=== PATIENT | female | born 1975 | race African-American/Black ===

== ENCOUNTER 2019-09-27 09:55 | Emergency (ER) | payer MEDICAID ==
[~2019-09-27] VITALS: Ht 165 cm; Wt 115.0 kg
[2019-09-27 10:42] LABS: BASOPHILS % (AUTO) 1 % (0-10); EOSINOPHILS # (AUTO) 0.3 10^3/uL (0.0-0.3); EOSINOPHILS % (AUTO) 3 % (0-10); HEMATOCRIT 44 % (35-52); HEMOGLOBIN 14.4 G/DL (11.5-16.0); LYMPHOCYTES # (AUTO) 3.5 X 10^3 (1.0-4.0); LYMPHOCYTES % (AUTO) 39 % (12-44); MEAN CORPUSCULAR HEMOGLOBIN 29 PG (25-34); MEAN CORPUSCULAR HGB CONC 33 G/DL (32-36); MEAN CORPUSCULAR VOLUME 89 FL (80-99); MEAN PLATELET VOLUME 10.9 FL (7.4-10.4); MONOCYTES # (AUTO) 0.7 X 10^3 (0.0-1.0); MONOCYTES % (AUTO) 8 % (0-12); NEUTROPHILS # (AUTO) 4.3 X 10^3 (1.8-7.8); NEUTROPHILS % (AUTO) 49 % (42-75); PLATELET COUNT 325 10^3/uL (130-400); RED CELL DISTRIBUTION WIDTH 16.6 % (10.0-14.5); WHITE BLOOD COUNT 8.9 10^3/uL (4.3-11.0)
[2019-09-27 10:49] LABS: INR 0.8 (0.8-1.4); PROTHROMBIN TIME PATIENT 11.7 SEC (12.2-14.7)
--- NOTE | 2019-09-27 10:53 | Diagnostic Imaging Report ---
INDICATION: Chest pain. Portable chest 10:45 AM FINDINGS: Patient has loop recorder projecting over the left lower chest. There are postoperative changes from a median sternotomy. Heart size and pulmonary vascularity are normal. Lungs are clear. There are no effusions or pneumothoraces. IMPRESSION: Postsurgical changes in the chest. No acute abnormality seen. Dictated by: Dictated on workstation # [id number]
[2019-09-27 10:54] LABS: ALANINE AMINOTRANSFERASE 28 U/L (0-55); ALBUMIN 4.2 GM/DL (3.2-4.5); ALKALINE PHOSPHATASE 96 U/L (40-136); BILIRUBIN,TOTAL 0.1 MG/DL (0.1-1.0); BUN/CREATININE RATIO 16; CALCIUM 8.9 MG/DL (8.5-10.1); CARBON DIOXIDE 22 MMOL/L (21-32); CHLORIDE 104 MMOL/L (98-107); CREATININE SERUM 0.75 MG/DL (0.60-1.30); GFR ESTIMATED > 60; GLUCOSE 96 MG/DL (70-105); POTASSIUM 5.6 MMOL/L (3.6-5.0); SODIUM 137 MMOL/L (135-145); TOTAL PROTEIN 7.6 GM/DL (6.4-8.2)
[2019-09-27 11:12] LABS: BILIRUBIN,URINE NEGATIVE (NEGATIVE); CLARITY,URINE CLEAR; COLOR,URINE YELLOW; GLUCOSE, URINE (UA) NEGATIVE (NEGATIVE); KETONES,URINE NEGATIVE (NEGATIVE); LEUKOCYTE ESTERASE ,URINE NEGATIVE (NEGATIVE); NITRITE,URINE NEGATIVE (NEGATIVE); PH,URINE 6.5 (5-9); PROTEIN,URINE NEGATIVE (NEGATIVE)
[2019-09-27 11:19] LABS: BACTERIA,URINE NEGATIVE /HPF; RBC,URINE RARE /HPF
--- NOTE | 2019-09-27 11:23 | ED Cough/URI ---
General Chief Complaint: Respiratory Problems Stated Complaint: SOA;CHEST PAIN Nursing Triage Note: PT AMB TO RM 8 WITH COMPLAINT OF SOA AND COUGH X1 WEEK. STATES SHE WAS SEEN IN [facility] AND DIAGNOSED WITH A "THROAT INFECTION". WAS PRESCRIBED CLINDAMYCIN AND A STEROID. STATES SYMPTOMS ARE WORSENING AND SHES NOW SOB AND HAVING CP. STATES WEARS NITRO PATCH AT ALL TIMES DUE TO CARDIAC HX. Sepsis Screen: No Definite Risk Source: patient Exam Limitations: no limitations History of Present Illness Date Seen by Provider: Sep 27, 2019 Time Seen by Provider: 11:21 Initial Comments ER with reports of a one-week history of a productive cough, shortness of breath and chest pain. She denies fevers or chills. She states that she is on clindamycin for this reason prescribed by Travis Richter in [place], she just moved to the are she reports extensive health history. 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 She was given an injection of steroids when she started the clindamycin. She denies any improvement in the past week and states she is only getting worse. Timing/Duration: constant, getting worse Severity/Quality: productive cough Associated Symptoms: cough, shortness of breath Allergies and Home Medications Allergies Coded Allergies: Iodinated Contrast Media (Verified Allergy, Unknown, 09/27/19) acetaminophen (Verified Allergy, Unknown, 09/27/19) cephalexin (Verified Allergy, Unknown, 09/27/19) fentanyl (Verified Allergy, Unknown, 09/27/19) hydromorphone (Verified Allergy, Unknown, 09/27/19) ketamine (Verified Allergy, Unknown, 09/27/19) ketorolac (Verified Allergy, Unknown, 09/27/19) lamotrigine (Verified Allergy, Unknown, 09/27/19) levofloxacin (Verified Allergy, Unknown, 09/27/19) propoxyphene (Verified Allergy, Unknown, 09/27/19) sulfamethoxazole (Verified Allergy, Unknown, 09/27/19) trimethoprim (Verified Allergy, Unknown, 09/27/19) Patient Home Medication List Home Medication List Reviewed: Yes Review of Systems Review of Systems Constitutional: see HPI, chills EENTM: see HPI Respiratory: see HPI, cough, short of breath Cardiovascular: see HPI, chest pain Genitourinary: no symptoms reported Musculoskeletal: no symptoms reported Skin: no symptoms reported Psychiatric/Neurological: No Symptoms Reported Hematologic/Lymphatic: No Symptoms Reported Immunological/Allergic: no symptoms reported Past Shzvtcb-Rwbjoj-Kbhkyb Hx Patient Social History Alcohol Use: Rarely Uses Recreational Drug Use: No Smoking Status: Current Everyday Smoker Type Used: Cigarettes Recent Foreign Travel: No Contact w/Someone Who Travel: No Recent Infectious Disease Expo: No Recent Hopitalizations: No Physical Abuse: No Sexual Abuse: No Mistreated: No Fear: No Immunizations Up To Date Tetanus Booster (TDap): Unknown PED Vaccines UTD: Yes Seasonal Allergies Seasonal Allergies: No Past Medical History Surgeries: Yes (THYMOMA REMOVALX2, INTERNAL MONITOR) Appendectomy, Hysterectomy, Tubal Ligation Respiratory: Yes Asthma, COPD Cardiac: Yes (SVT; [place] X5) Hypertension Neurological: Yes Seizure Disorder 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 oz. kg; 42.00 BMI Method: General Appearance: WD/WN, no apparent distress, obese Eyes: Bilateral Eye Normal Inspection, Bilateral Eye PERRL, Bilateral Eye EOMI HEENT: PERRL/EOMI, normal ENT inspection Neck: non-tender, full range of motion Respiratory: no respiratory distress, no accessory muscle use Cardiovascular: regular rate, rhythm, no murmur Gastrointestinal: normal bowel sounds, non tender, soft Neurologic/Psychiatric: alert, normal mood/affect, oriented x 3 Skin: normal color, warm/dry Focused Exam Lactate Level 09/27/19 08:04: Lactic Acid Level 1.12 Lactic Acid Level Laboratory Tests Test 09/27/19 08:04 Lactic Acid Level 1.12 MMOL/L (0.50-2.00) Progress/Results/Core Measures Suspected Sepsis Recent Fever Within 48 Hours: No Infection Criteria Present: None New/Unexplained Altered Menta: No Sepsis Screen: No Definite Risk SIRS Temperature: Pulse: 88 Respiratory Rate: 23 Laboratory Tests 09/27/19 10:15: White Blood Count 8.9 Blood Pressure 114 /74 Mean: 87 09/27/19 08:04: Lactic Acid Level 1.12 Laboratory Tests 09/27/19 10:15: Creatinine 0.75, INR Comment 0.8, Platelet Count 325, Total Bilirubin 0.1 Results/Orders Lab Results Laboratory Tests Test 09/27/19 08:04 09/27/19 10:15 09/27/19 10:55 Range/Units Lactic Acid Level 1.12 0.50-2.00 MMOL/L White Blood Count 8.9 4.3-11.0 10^3/uL Red Blood Count 4.96 4.35-5.85 10^6/uL Hemoglobin 14.4 11.5-16.0 G/DL Hematocrit 44 35-52 % Mean Corpuscular Volume 89 80-99 FL Mean Corpuscular Hemoglobin 29 25-34 PG Mean Corpuscular Hemoglobin Concent 33 32-36 G/DL Red Cell Distribution Width 16.6 H 10.0-14.5 % Platelet Count 325 130-400 10^3/uL Mean Platelet Volume 10.9 H 7.4-10.4 FL Neutrophils (%) (Auto) 49 42-75 % Lymphocytes (%) (Auto) 39 12-44 % Monocytes (%) (Auto) 8 0-12 % Eosinophils (%) (Auto) 3 0-10 % Basophils (%) (Auto) 1 0-10 % Neutrophils # (Auto) 4.3 1.8-7.8 X 10^3 Lymphocytes # (Auto) 3.5 1.0-4.0 X 10^3 Monocytes # (Auto) 0.7 0.0-1.0 X 10^3 Eosinophils # (Auto) 0.3 0.0-0.3 10^3/uL Basophils # (Auto) 0.0 0.0-0.1 10^3/uL Prothrombin Time 11.7 L 12.2-14.7 SEC INR Comment 0.8 0.8-1.4 Activated Partial Thromboplast Time 31 24-35 SEC Urine Color YELLOW Urine Clarity CLEAR Urine pH 6.5 5-9 Urine Specific [place] 1.010 L 1.016-1.022 Urine Protein NEGATIVE NEGATIVE Urine Glucose (UA) NEGATIVE NEGATIVE Urine Ketones NEGATIVE NEGATIVE Urine Nitrite NEGATIVE NEGATIVE Urine Bilirubin NEGATIVE NEGATIVE Urine Urobilinogen 0.2 < = 1.0 MG/DL Urine Leukocyte Esterase NEGATIVE NEGATIVE Urine RBC (Auto) NEGATIVE NEGATIVE Urine RBC RARE /HPF Urine WBC NONE /HPF Urine Crystals NONE /LPF Urine Bacteria NEGATIVE /HPF Urine Casts NONE /LPF Urine Mucus NEGATIVE /LPF Urine Culture Indicated NO Sodium Level 137 135-145 MMOL/L Potassium Level 5.6 H 3.6-5.0 MMOL/L Chloride Level 104 98-107 MMOL/L Carbon Dioxide Level 22 21-32 MMOL/L Anion Gap 11 5-14 MMOL/L Blood Urea Nitrogen 12 7-18 MG/DL Creatinine 0.75 0.60-1.30 MG/DL Estimat Glomerular Filtration Rate > 60 BUN/Creatinine Ratio 16 Glucose Level 96 70-105 MG/DL Calcium Level 8.9 8.5-10.1 MG/DL Corrected Calcium 8.7 8.5-10.1 MG/DL Magnesium Level 2.0 1.6-2.4 MG/DL Total Bilirubin 0.1 0.1-1.0 MG/DL Aspartate Amino Transf (AST/SGOT) 24 5-34 U/L Alanine Aminotransferase (ALT/SGPT) 28 0-55 U/L Alkaline Phosphatase 96 40-136 U/L Myoglobin 18.7 10.0-92.0 NG/ML Troponin I < 0.028 <0.028 NG/ML Total Protein 7.6 6.4-8.2 GM/DL Albumin 4.2 3.2-4.5 GM/DL Urine Opiates Screen NEGATIVE NEGATIVE Urine Oxycodone Screen POSITIVE H NEGATIVE Urine Methadone Screen NEGATIVE NEGATIVE Urine Propoxyphene Screen NEGATIVE NEGATIVE Urine Barbiturates Screen NEGATIVE NEGATIVE Ur Tricyclic Antidepressants Screen NEGATIVE NEGATIVE Urine Phencyclidine Screen NEGATIVE NEGATIVE Urine Amphetamines Screen NEGATIVE NEGATIVE Urine Methamphetamines Screen NEGATIVE NEGATIVE Urine Benzodiazepines Screen NEGATIVE NEGATIVE Urine Cocaine Screen NEGATIVE NEGATIVE Urine Cannabinoids Screen NEGATIVE NEGATIVE B-Type Natriuretic Peptide < 10.0 <100.0 PG/ML My Orders Orders - CHUCK FELIX APRN Cbc With Automated Diff (09/27/19 10:32) Magnesium (09/27/19 10:32) Chest 1 View, Ap/Pa Only (09/27/19 10:32) Ekg Tracing (09/27/19 10:32) Comprehensive Metabolic Panel (09/27/19 10:32) Myoglobin Serum (09/27/19 10:32) Protime With Inr (09/27/19 10:32) Partial Thromboplastin Time (09/27/19 10:32) O2 (09/27/19 10:32) Monitor-Rhythm Ecg Trace Only (09/27/19 10:32) Lipid Panel (09/28/19 06:00) Ed Iv/Invasive Line Start (09/27/19 10:32) BNP (09/27/19 10:32) Troponin I (09/27/19 10:32) Blood Culture (09/27/19 10:32) Lactic Acid Analyzer (09/27/19 10:32) Ua Culture If Indicated (09/27/19 11:05) Drug Screen Stat (Urine) (09/27/19 11:08) Dexamethasone Injection (Decadron Inject (09/27/19 12:30) Vital Signs/I&O 09/27/19 09:56 Temp 36.0 Pulse 88 Resp 23 B/P (MAP) 114/74 (87) Pulse Ox 96 O2 Delivery Room Air Capillary Refill : Less Than 3 Seconds Blood Pressure Mean: 87 Diagnostic Imaging Diagonstic Imaging: Xray Comments NAME: LAYNE SPEARS [facility] REC#: [id number] PT STATUS: REG ER : 1975 PHYSICIAN: CHUCK FELIX APRN ADMIT DATE: 09/27/19/ER Signed Date of Exam:09/27/19 CHEST 1 VIEW, AP/PA ONLY INDICATION: Chest pain. Portable chest 10:45 AM FINDINGS: Patient has loop recorder projecting over the left lower chest. There are postoperative changes from a median sternotomy. Heart size and pulmonary vascularity are normal. Lungs are clear. There are no effusions or pneumothoraces. IMPRESSION: Postsurgical changes in the chest. No acute abnormality seen. Dictated by: Dictated on workstation # [id number] Dict: 09/27/19 1049 Trans: 09/27/19 1058 TS [id number] Interpreted by: ARMANDO FONTAINE MD Electronically signed by: ARMANDO FONTAINE MD 09/27/19 1058 Departure Impression Primary Impression: Viral bronchitis Disposition: HOME, SELF-CARE Condition: Improved Departure-Patient Inst. Decision time for Depature: 11:27 Patient Instructions: Acute Bronchitis Add. Discharge Instructions: 1. Call your family physician today to make an appointment to be seen. Return to ER for any concerns. Steroids as directed. All discharge instructions reviewed with patient and/or family. Voiced understanding. Scripts Prednisone (Prednisone) 20 Mg Tab 40 MG PO DAILY, #6 TAB 0 Refills Prov: CHUCK FELIX APRN 09/27/19 CHUCK FELIX APRN Sep 27, 2019 11:23
[2019-09-27 11:53] LABS: AMPHETAMINE SCREEN, URINE NEGATIVE (NEGATIVE); BARBITURATE SCREEN URINE NEGATIVE (NEGATIVE); BENZODIAZEPINES SCREEN URINE NEGATIVE (NEGATIVE); CANNABINOID SCREEN, URINE NEGATIVE (NEGATIVE); COCAINE SCREEN URINE NEGATIVE (NEGATIVE); METHADONE STAT NEGATIVE (NEGATIVE); METHAMPHETAMINE SCREEN URINE S NEGATIVE (NEGATIVE); OPIATE SCREEN URINE NEGATIVE (NEGATIVE); OXYCODONE STAT POSITIVE (NEGATIVE); PROPOXYPHENE STAT NEGATIVE (NEGATIVE); TRICYCLIC ANTIDEPRESSANTS SCRE NEGATIVE (NEGATIVE)
[2019-09-27] MEDS ORDERED: PRD20T PO (12:21)
[2019-09-27] MEDS ORDERED: DEXAMETHASONE 10 MG/ML (DECADRON) 1 ML VIAL IM ONE (12:30)
[2019-09-27 12:33] VITALS: BP 113/81
== END 2019-09-27 12:33 | disposition home or self-care (01) ==
LOC: EDUNIT# 09:55 → ER 09:57
DX: J20.8 Acute bronchitis due to other specified organisms (principal); B97.89 Other viral agents as the cause of diseases classified elsewhere; I10 Essential (primary) hypertension; G40.909 Epilepsy, unspecified, not intractable, without status epilepticus; J44.9 Chronic obstructive pulmonary disease, unspecified; K58.9 Irritable bowel syndrome, unspecified; F41.9 Anxiety disorder, unspecified; F32.9 Major depressive disorder, single episode, unspecified; M79.7 Fibromyalgia; M06.9 Rheumatoid arthritis, unspecified; E03.9 Hypothyroidism, unspecified; F17.210 Nicotine dependence, cigarettes, uncomplicated; Z87.442 Personal history of urinary calculi; Z90.49 Acquired absence of other specified parts of digestive tract; Z90.710 Acquired absence of both cervix and uterus; Z98.51 Tubal ligation status; Z91.041 Radiographic dye allergy status; Z88.6 Allergy status to analgesic agent; Z88.1 Allergy status to other antibiotic agents; Z88.5 Allergy status to narcotic agent; Z88.2 Allergy status to sulfonamides; Z88.8 Allergy status to other drugs, medicaments and biological substances
CPT/HCPCS: 36415; 71045; 80053; 80306; 81000; 83605; 83735; 83874; 83880; 84484; 85025; 85610; 85730; 87040; 87081; 93005; 93041

== ENCOUNTER → 2019-10-05 | Outpatient (CLI) | payer MEDICAID ==
[~2019-10-05] MED LIST: PRD20T PO
== END ==
LOC: CARD 07:43 → EDUNIT# 08:00
PROVIDERS: ATTEND Nurse Practitioner Family
DX: I25.118 Atherosclerotic heart disease of native coronary artery with other forms of angina pectoris (principal)
CPT/HCPCS: 93306

== ENCOUNTER → 2019-10-12 | Outpatient (CLI) | payer MEDICAID ==
--- NOTE | 2019-10-12 11:31 | Diagnostic Imaging Report ---
PROCEDURE: CT abdomen and pelvis without contrast. TECHNIQUE: Multiple contiguous axial images were obtained through the abdomen and pelvis without the use of intravenous contrast. Auto Exposure Controls were utilized during the CT exam to meet ALARA standards for radiation dose reduction. INDICATION: Nephrolithiasis. FINDINGS: Punctate nonobstructing 1-2 mm stone within the left upper pole renal calyx present. Right kidney shows no radiodense stone. No hydroureteronephrosis. No ureteral stone or perinephric/periureteric edema. The unopacified urinary bladder appears nonacute. There is no appendicitis or diverticulitis. The liver, gallbladder, bile ducts, spleen, adrenals, and pancreas are all nonacute. The aorta is nonaneurysmal. No ascites, abscess, hematoma, fluid collection, or inflammatory process. IMPRESSION: Solitary punctate nonobstructing left renal stone, otherwise negative. Dictated by: Dictated on workstation # [id number]
== END ==
LOC: RAD 09:39
PROVIDERS: ATTEND Urology
DX: N20.0 Calculus of kidney (principal)
CPT/HCPCS: 74176

== ENCOUNTER → 2019-11-11 | Outpatient (CLI) | payer MEDICAID ==
[~2019-11-11] VITALS: Ht 165 cm; Wt 115.0 kg
[~2019-11-11] MED LIST changes: +CATHETER FLUSH 10 ML SYR IV PRN; +REGADENOSON 0.4 MG/5 ML SYR (LEXISCAN) IV ONE
[2019-11-11 08:40] VITALS: BP 158/99
--- NOTE | 2019-11-12 12:11 | Cardiology Stress Test Report ---
Stress Test Report Type of NM Stress Test: Test Type: LEXISCAN 0.4MG/5ML Date of Procedure/Referring: Date of Procedure: Nov 11, 2019 PCP Brenda Angela MD Admitting Physician No,Local Physician Indications: Precordial pain Baseline Heart Rate: 84 Baseline Blood Pressure: Blood Pressure Systolic: 158 Blood Pressure Diastolic: 99 Baseline EKG: Baseline EKG: sinus rhythm Summary & Conclusion: Summary: The patient was brought to the stress lab after informed consent was taken. Stress test was performed according to the Lexiscan protocol. 0.4 mg of IV Lexiscan was given. Low-grade exercise was performed. Baseline EKG showed sinus rhythm at 84 BPM. Blood pressure 117/81 mmHg. Maximum heart rate of 101 bpm and blood pressure 122/90 mmHg. Patient did not have any chest pain, arrhythmias or ST segment changes during the stress test. 10.27 mCi of Myoview were given for rest imaging and 30.3 mCi of Myoview given for stress imaging. Transient ischemic dilatation score , EF percent. Normal wall motion. Mild anterior reversible defect. Conclusion: Pharmacological stress test was negative for ischemia. Normal LV function with no wall motion abnormalities. Possibility of mild anterior ischemia. Clinical correlation is recommended. Brenda ANGELA MD Nov 12, 2019 12:11
== END ==
LOC: CARD 10-14 07:38
PROVIDERS: ATTEND Internal Medicine Interventional Cardiology
DX: R07.2 Precordial pain (principal); I10 Essential (primary) hypertension; E66.01 Morbid (severe) obesity due to excess calories; I73.9 Peripheral vascular disease, unspecified; Z72.0 Tobacco use
CPT/HCPCS: 78452; 93017

== ENCOUNTER → 2019-11-25 | Outpatient (CLI) | payer MEDICAID ==
[~2019-11-25] MED LIST changes: +ACHD5005 PO; -CATHETER FLUSH 10 ML SYR IV PRN; +CETI10CA PO; +CLON0.5T4 PO; +FLUT16SP22 NSEACH; +LEVO200T6 PO; +LIDOCAINE PO; +MECL-149 PO; +MELO15TA39 PO; +METO-333 PO; +NALO25TA PO; +NITR0.4T39 SL; +NITR1PAT62 TD; +ONDA-105 PO; -REGADENOSON 0.4 MG/5 ML SYR (LEXISCAN) IV ONE; +SERT100T8 PO
--- NOTE | 2019-11-25 15:16 | Diagnostic Imaging Report ---
CLINICAL INDICATION: Patient has mass underneath her chin. Marker is in the area of concern. EXAM: MRI of the neck soft tissue performed without IV contrast. Sequences include axial T2, axial T1 fat-sat, coronal T1, coronal T2 fat sat, and axial T1. COMPARISON: Ultrasound of the thyroid gland dated 05/31/2016. FINDINGS: There is no significant abnormality seen in the submandibular region or underneath the chin region of concern. There is no abnormality seen beneath the BB marker. There is normal-appearing fat in the areas visualized. The nasopharynx, oropharynx, hypopharynx, and laryngeal soft tissue structures show no significant abnormality. The tongue, sublingual region and submandibular region is unremarkable. The visualized portions of the oral cavity is grossly unremarkable. The submandibular and parotid glands show no significant abnormality. The thyroid gland is either small or absent. Visualized upper lung ruth show dependent atelectasis posteriorly. There is no lymphadenopathy. The cervical spine shows no significant abnormalities visualized. Visualized intracranial structures show no significant abnormality. IMPRESSION: 1. There is no evidence of neck soft tissue abnormality. There is no significant abnormality seen beneath the submandibular region/BB marker area. There is no lymphadenopathy. Dictated by: Dictated on workstation # [id number]
== END ==
LOC: RAD 13:41
PROVIDERS: ATTEND Nurse Practitioner Family
DX: I25.10 Atherosclerotic heart disease of native coronary artery without angina pectoris (principal); R22.1 Localized swelling, mass and lump, neck
CPT/HCPCS: 70540

== ENCOUNTER 2020-01-04 14:50 | Emergency (ER) | payer MEDICAID ==
[~2020-01-04] VITALS: Ht 165 cm; Wt 121.0 kg
--- OUTSIDE RECORDS SUMMARY | 2020-01-04 15:18 | XMS REPORT | Continuity of Care Document ---
Demographics Preferred Language Unknown Marital Status Unknown Confucianist Affiliation Unknown Race Unknown Ethnic Group Unknown Author Organization Unknown Address Unknown Phone Unavailable Allergies Active Description Code Type Severity Reaction Onset Reported/Identified Relationship to Patient Clinical Status Yes Bactrim [id number] Drug Mild [id number] Yes contrast media (iodine-based) Drug Moderate [id number]~09165 Yes Darvocet A500 e64257 Drug Mild M-09970 Yes Dilaudid m13267 Drug Mo derate Vomitting Yes Keflex n18668 Drug Mild M- 53620 Yes Levaquin p05919 Drug Mild [id number] Yes Topamax v26996 Drug Mild 77593 Yes Toradol e97580 Drug Mod erate Facial swelling Yes Contrast Media Drug Allergy Severe [id number] Yes Keflex Drug Allergy Severe [id number] Yes Dilaudid Drug Allergy Unknown 14777 Yes LaMICtal Drug Allergy Unknown 30859 Yes Levaquin Drug Allergy Unknown unknown Yes Toradol Drug Allergy Unknown [id number] Yes acetaminophen 1605 1 N/A N/A Yes CEPHALEXIN MONOHYDRATE 6830 1 N/A N/A Yes HYDROMORPHONE HCL 1547 1 N/A N/A Yes iodine 852 1 N/A N/A Yes KETOROLAC TROMETHAMINE 3539 1 N/A N/A Yes levofloxacin 6299 1 N/A N/A Yes PROPOXYPHENE NAPSYLATE 1576 1 N/A N/A Yes Sulfa (Sulfonamide Antibiotics) 491 3 N/A N/A Yes sulfamethoxazole 2827 1 N/A N/A Yes trimethoprim 2873 1 N/A N/A Yes Bactrim Drug Allergy Unknown N/A 02/02/2018 Yes DARVOCET-N 100 Drug Allergy Unknown N/A 02/02/2018 Yes Dilaudid Drug Allergy Unknown N/A 02/02/2018 Yes iodine Drug Allergy Unknown N/A 02/02/2018 Yes Keflex Drug Allergy Unknown N/A 02/02/2018 Yes Levaquin Drug Allergy Unknown N/A 02/02/2018 Yes TORADOL Drug Allergy Unknown N/A 02/02/2018 Yes acetaminophen [id number] Michael g Allergy Unknown N/A 09/27/2019 Yes cephalexin [id number] Drug Allerg y Unknown N/A 09/27/2019 Yes fentanyl [id number] Drug Allergy Unknown N/A 09/27/2019 Yes hydromorphone [id number] Michael g Allergy Unknown N/A 09/27/2019 Yes Iodinated Contrast Media [id number] Drug Allergy Unknown N/A 09/27/2019 Yes ketamine [id number] Drug Allergy Unknown N/A 09/27/2019 Yes ketorolac [id number] Drug Allergy Unknown N/A 09/27/2019 Yes lamotrigine [id number] Drug Aller gy Unknown N/A 09/27/2019 Yes levofloxacin [id number] Drug Allergy Unknown N/A 09/27/2019 Yes propoxyphene [id number] Drug Allergy Unknown N/A 09/27/2019 Yes sulfamethoxazole [id number] Drug Allergy Unknown N/A 09/27/2019 Yes trimethoprim I990375217 Drug Allergy Unknown N/A 09/27/2019 Medications Medication Packaging Start Date St op Date Route Dosage Sig Rozerem 8 mg tablet Tablet 02/02/2018 8 mg take 1 (one) Tablet by Oral route daily Amitiza 24 mcg capsule Capsu le 02/02/2018 24 mcg 1 (one) by Oral route daily Topamax 100 mg tablet Tablet 02/02/2018 100 mg take 1 (one) Tablet by Oral route daily Miralax 17 gram oral powder packet Packet 02/02/2018 17 gram 1 (one) by Oral route daily levothyroxine 112 mcg tablet Tablet 02/02/2018 112 mcg 1 (one) by Oral route daily Movantik 25 mg tablet Bliste r 02/02/2018 25 mg take 1 (one) Tablet by Oral route daily Imitrex 100 mg tablet Tablet 02/02/2018 100 mg take 1 (one) Tablet by Oral route daily Flovent HFA 110 mcg/actuation aerosol inha ler Gram 02/02/2018 110 mcg/act uation 1 (one) daily LORazepam 0.5 mg tablet Tabl et 02/02/2018 0.5 mg take 1 (one) Tablet by Oral route daily Zofran 4 mg tablet Tablet 02/02/2018 4 mg take 1 (one) Tablet by Oral route daily [place] 10 mg-325 mg tablet Ta blet 02/02/2018 10-325 mg take 1 (one) Tablet by Oral route daily methylPREDNISolone 32 mg tablet Tablet 02/03/2018 02/04/2018 32 mg take 1 (one) Tablet by Oral route the evening before the exam, and one tablet by mouth the morning of the exam Benadryl 25 mg capsule Capsu le 02/03/2018 02/04/2018 25 mg take 2 (two) Capsule by Oral route 30 minutes prior to exam. cimetidine 300 mg tablet Tab let 02/03/2018 02/04/2018 300 mg take 1 (one) Tablet by Oral route the morning of the exam Sodium Chloride 0.9% 1,000 mL Soln-IV 05/03/2019 <RXR.1.2>IV</RXR.1.2><RXR.1. 2>IV</RXR.1.2> hydrocortisone Injection 05/03/2019 05/03/2019 <RXR.1.2>IV Push</RXR.1.2><R XR.1.2>IV Push</RXR.1.2> Once diphenhydrAMINE Injection 05/03/2019 05/03/2019 <RXR.1.2>IV Push</RXR.1.2><R XR.1.2>IV Push</RXR.1.2> Once aspirin Tab-Chew 05/0305/03/2019 <RXR.1.2>Oral</RXR.1.2><RXR.1.2>Oral</RXR.1.2> Once Problems Date Dx Coded Attending Type Code Diagnosis Diagnosed By 06/09/2016 Chago Hi MD E1 1.9 Type 2 diabetes mellitus without complications Chago Hi MD 06/09/2016 Chago Hi MD F17.210 Nicotine dependence, cigarettes, uncomplicated Chago Hi MD 06/09/2016 Chago Hi MD I25.10 Atherosclerotic heart disease of [place] coronary artery without angina pectoris Chago Hi MD 06/09/2016 Chago Hi MD 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, not elsewhere classified Chago Hi MD 06/17/2016 Chago Hi MD R2 2.2 Localized swelling, mass and lump, trunk Nold, R Jose Roberto 06/17/2016 Chago Hi MD R2 2.2 Localized swelling, mass and lump, trunk Sarthak, Sergei R 07/02/2016 Chago Hi MD 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 Chago Hi MD 07/02/2016 Chago Hi MD 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 Joseph Rebollar DO 08/09/2016 Chago Hi MD Z0 9 Encounter for follow-up examination after completed treatment for conditions other than malignant neoplasm Chago Hi MD 11/04/2016 Chago Hi MD 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 Chago Hi MD 11/04/2016 Chago Hi MD 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 Joseph Rebollar DO 11/04/2016 Chago Hi MD E1 1.9 Type 2 diabetes mellitus without complications Chago Hi MD 11/04/2016 Chago Hi MD F17.210 Nicotine dependence, cigarettes, uncomplicated Chago Hi MD 11/04/2016 Chago Hi MD I25.10 Atherosclerotic heart disease of [place] coronary artery without angina pectoris Chago Hi MD 11/04/2016 Chago Hi MD 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, not elsewhere classified Chago Hi MD 11/04/2016 Chago Hi MD R2 2.2 Localized swelling, mass and lump, trunk Nold, R Jose Roberto 11/04/2016 Chago Hi MD R2 2.2 Localized swelling, mass and lump, trunk Nold, R Jose Roberto 11/04/2016 Chago Hi MD R2 2.2 Localized swelling, mass and lump, trunk Sarthak, Sergei Lukas 11/04/2016 Chago Hi MD 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 Chago Hi MD 12/11/2016 Chago Hi MD R2 2.2 Localized swelling, mass and lump, trunk Nold, R Jose Roberto 12/12/2016 Chago Hi MD R2 2.2 Localized swelling, mass and lump, trunk Nold, R Jose Roberto 01/09/2017 Chago Hi MD E1 1.9 Type 2 diabetes mellitus without complications Chago Hi MD 01/09/2017 Chago Hi MD F17.210 Nicotine dependence, cigarettes, uncomplicated Chago Hi MD 01/09/2017 Chago Hi MD I25.10 Atherosclerotic heart disease of [place] coronary artery without angina pectoris Chago Hi MD 01/09/2017 Chago Hi MD 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, not elsewhere classified Chago Hi MD 02/19/2018 Chago Hi MD E1 1.9 Type 2 diabetes mellitus without complications Chago Hi MD 02/19/2018 Chago Hi MD E66.01 Morbid (severe) obesity due to excess calories Chago Hi MD 02/19/2018 Chago Hi MD F17.210 Nicotine dependence, cigarettes, uncomplicated Chago Hi MD 02/19/2018 Chago Hi MD I1 0 Essential (primary) hypertension Chago Hi MD 02/19/2018 Chaog Hi MD R06.09 Other forms of dyspnea Chago Hi MD 02/19/2018 Chago Hi MD R07.89 Other chest pain Chago Hi MD 02/19/2018 Chago Hi MD R2 2.2 Localized swelling, mass and lump, trunk Chago Hi MD 02/19/2018 Chago Hi MD R9 1.8 Other nonspecific abnormal finding of lung field Chago Hi MD 02/19/2018 Chago Hi MD Z68.37 Body mass index (BMI) 37.0-37.9, adult Chago Angulo MD 03/03/2018 Chago Hi MD E66.01 Morbid (severe) obesity due to excess calories Chago Hi MD 03/03/2018 Chago Hi MD F17.210 Nicotine dependence, cigarettes, uncomplicated Chago Hi MD 03/03/2018 Chago Hi MD I1 0 Essential (primary) hypertension Kolton BARKSDALE, Chago Polo 03/03/2018 Chago Hi MD I25.10 Atherosclerotic heart disease of [place] coronary artery without angina pectoris Kolton BARK[place], Chago Polo 03/03/2018 Chago Hi MD I70.213 Atherosclerosis of [place] arteries of ex tremities with intermittent claudication, bilateral legs Chago Hi MD 03/03/2018 Chago Hi MD R06.09 Other forms of dyspnea Kolton BARKSDALE, Chago Polo 03/03/2018 Chago Hi MD R2 2.0 Localized swelling, mass and lump, head Chago Hi MD 03/03/2018 Chago Hi MD R2 2.2 Localized swelling, mass and lump, trunk Chago Hi MD 03/03/2018 Chago Hi MD R22.43 Localized swelling, mass and lump, lower limb, bilater al Chago Hi MD 03/03/2018 Chago Hi MD Z68.38 Body mass index (BMI) 38.0-38.9, adult Chago Angulo MD 03/04/2018 Chago Hi MD E66.01 Morbid (severe) obesity due to excess calories Chago Hi MD 03/04/2018 Chago Hi MD F17.210 Nicotine dependence, cigarettes, uncomplicated Chago Hi MD 03/04/2018 Chago Hi MD I1 0 Essential (primary) hypertension Chago Hi MD 03/04/2018 Chago Hi MD I25.10 Atherosclerotic heart disease of [place] coronary artery without angina pectoris Chago Hi MD 03/04/2018 Chago Hi MD I70.213 Atherosclerosis of [place] arteries of ex tremities with intermittent claudication, bilateral legs Chago Hi MD E 03/04/2018 Chago Hi MD R06.09 Other forms of dyspnea Kolton BARKSDALE, Chago E 03/04/2018 Chago Hi MD R2 2.0 Localized swelling, mass and lump, head Kolton B[place], Chago E 03/04/2018 Chago Hi MD R2 2.2 Localized swelling, mass and lump, trunk Kolton BARK[place], Chago E 03/04/2018 Chago Hi MD R22.43 Localized swelling, mass and lump, lower limb, bilater al Kolton BARKSDALE, Chago E 03/04/2018 Chago Hi MD Z68.38 Body mass index (BMI) 38.0-38.9, adult Kelli black MD, [place] E 04/14/2018 Chago Hi MD Z0 9 Encounter for follow-up examination after completed treatment for conditions other than malignant neoplasm Kolton BARKSDALE, Chago Polo 08/05/2018 [facility] HI J90 PLEURAL EFFUSION, NOT ELSEWHERE CLASSIFIED [facility] HI 08/05/2018 [facility] [facility] J98.4 OTHER DISORDERS OF LUNG [facility] HI 08/05/2018 [place] P Z09 ENCOUNTER FOR FOLLOW-UP EXAMINATION AFTER COMPLETED TREATMENT FOR CONDITIONS OTHER THAN MALIGNANT NEOPLASM [facility] HI 08/05/2018 [place] Z98.890 OTHER SPECIFIED POSTPROCEDURAL STATES [facility] 11/02/2018 W G89.29 Oth er chronic pain 11/02/2018 W M25.512 Ch ronic left shoulder pain 11/02/2018 W M54.2 Neck pain 02/20/2019 Reason For Visit R07.9 Chest pain, unspecified 02/20/2019 Final R20.0 A nesthesia of skin 02/20/2019 Final Z86.79 Personal history of other diseases of the circulatory system 02/20/2019 Reason For Visit R07.9 Chest pain, unspecified 02/20/2019 Final R20.0 A nesthesia of skin 02/20/2019 Final Z86.79 Personal history of other diseases of the circulatory system 05/03/2019 KINDRA VARMA R00.0 Tachycardia, unspecified 05/03/2019 KINDRA VARMA Reason For Visi t R07.9 Chest pain, unspecified 05/03/2019 KINDRA VARMA R55 Syncope and collapse 09/27/2019 CHUCK FELIX APRN Ot B97.89 OT VIRAL AGENTS THE CAUSE OF DISEASE 09/27/2019 ISIDRO, CHUCK Hsu APRN Ot E03 .9 HYPOTHYROIDISM, UNSPECIFIED 09/27/2019 ISIDRO, CHUCK Hsu APRN Ot F17.210 NICOTINE DEPENDENCE, CIGARETTES, UNCOMPL 09/27/2019 ISIDRO, CHUCK Hsu APRN Ot F32 .9 MAJOR DEPRESSIVE DISORDER, SINGLE EPISOD 09/27/2019 ISIDRO, CHUCK Hsu APRN Ot F41 .9 ANXIETY DISORDER, UNSPECIFIED 09/27/2019 ISIDRO, CHUCK Hsu APRN Ot G40.909 EPILEPSY, UNSP, NOT INTRACTABLE, WITHOUT 09/27/2019 FELIX, CHUCK Hsu APRN Ot I10 ESSENTIAL (PRIMARY) HYPERTENSION 09/27/2019 ISIDRO, CHUCK Hsu APRN Ot J20 .8 ACUTE BRONCHITIS DUE TO OTHER SPECIFIED 09/27/2019 ISIDRO, CHUCK Hsu APRN Ot J44 .9 CHRONIC OBSTRUCTIVE PULMONARY DISEASE, U 09/27/2019 ISIDRO, CHUCK Hsu APRN Ot K58 .9 IRRITABLE BOWEL SYNDROME WITHOUT DIARRHE 09/27/2019 ISIDRO, CHUCK Hsu APRN Ot M06 .9 RHEUMATOID ARTHRITIS, UNSPECIFIED 09/27/2019 ISIDRO, CHUCK Hsu APRN Ot M79 .7 FIBROMYALGIA 09/27/2019 ISIDRO, CHUCK Hsu APRN Ot R07 .9 CHEST PAIN, UNSPECIFIED 09/27/2019 CHUCK FELIX APRN Ot Z87.442 PERSONAL HISTORY OF URINARY CALCULI 09/27/2019 CHUCK FELIX APRN Ot Z88 .1 ALLERGY STATUS TO OTHER ANTIBIOTIC AGENT 09/27/2019 CHUCK FELIX APRN Ot Z88 .2 ALLERGY STATUS TO SULFONAMIDES STATUS 09/27/2019 CHUCK FELIX APRN Ot Z88 .5 ALLERGY STATUS TO NARCOTIC AGENT STATUS 09/27/2019 CHUCK FELIX APRN Ot Z88 .6 ALLERGY STATUS TO ANALGESIC AGENT STATUS 09/27/2019 CHUCK FELIX APRN Ot Z88 .8 ALLERGY STATUS TO OTH DRUG/MEDS/BIOL SUB 09/27/2019 CHUCK FELIX APRN Ot Z90.49 ACQUIRED ABSENCE OF OTHER SPECIFIED PART 09/27/2019 CHUCK FELIX APRN Ot Z90.710 ACQUIRED ABSENCE OF BOTH CERVIX AND UTER 09/27/2019 ISIDRO, CHUCK Hsu APRN Ot Z91.041 RADIOGRAPHIC DYE ALLERGY STATUS 09/27/2019 CHUCK FELIX APRN Ot Z98.51 TUBAL LIGATION STATUS 10/04/2019 CHUCK FELIX APRN Ot B97.89 OTH VIRAL AGENTS THE CAUSE OF DISEASE 10/04/2019 CHUCK FELIX APRN Ot E03 .9 HYPOTHYROIDISM, UNSPECIFIED 10/04/2019 CHUCK FELIX APRN Ot F17.210 NICOTINE DEPENDENCE, CIGARETTES, UNCOMPL 10/04/2019 CHUCK FELIX APRN Ot F32 .9 MAJOR DEPRESSIVE DISORDER, SINGLE EPISOD 10/04/2019 CHUCK FELIX APRN Ot F41 .9 ANXIETY DISORDER, UNSPECIFIED 10/04/2019 CHUCK FELIX APRN Ot G40.909 EPILEPSY, UNSP, NOT INTRACTABLE, WITHOUT 10/04/2019 CHUCK FELIX APRN Ot I10 ESSENTIAL (PRIMARY) HYPERTENSION 10/04/2019 CHUCK FELIX APRN Ot J20 .8 ACUTE BRONCHITIS DUE TO OTHER SPECIFIED 10/04/2019 CHUCK FELIX APRN Ot J44 .9 CHRONIC OBSTRUCTIVE PULMONARY DISEASE, U 10/04/2019 CHUCK FELIX APRN Ot K58 .9 IRRITABLE BOWEL SYNDROME WITHOUT DIARRHE 10/04/2019 CHUCK FELIX APRN Ot M06 .9 RHEUMATOID ARTHRITIS, UNSPECIFIED 10/04/2019 CHUCK FELIX APRN Ot M79 .7 FIBROMYALGIA 10/04/2019 CHUCK FELIX APRN Ot R07 .9 CHEST PAIN, UNSPECIFIED 10/04/2019 CHUCK FELIX APRN Ot Z87.442 PERSONAL HISTORY OF URINARY CALCULI 10/04/2019 CHUCK FELIX APRN Ot Z88 .1 ALLERGY STATUS TO OTHER ANTIBIOTIC AGENT 10/04/2019 CHUCK FELIX APRN Ot Z88 .2 ALLERGY STATUS TO SULFONAMIDES STATUS 10/04/2019 CHUCK FELIX APRN Ot Z88 .5 ALLERGY STATUS TO NARCOTIC AGENT STATUS 10/04/2019 CHUCK FELIX APRN Ot Z88 .6 ALLERGY STATUS TO ANALGESIC AGENT STATUS 10/04/2019 CHUCK FELIX APRN Ot Z88 .8 ALLERGY STATUS TO OTH DRUG/MEDS/BIOL SUB 10/04/2019 CHUCK FELIX APRN Ot Z90.49 ACQUIRED ABSENCE OF OTHER SPECIFIED PART 10/04/2019 CHUCK FELIX APRN Ot Z90.710 ACQUIRED ABSENCE OF BOTH CERVIX AND UTER 10/04/2019 CHUCK FELIX APRN Ot Z91.041 RADIOGRAPHIC DYE ALLERGY STATUS 10/04/2019 CHUCK FELIX APRN Ot Z98.51 TUBAL LIGATION STATUS 10/11/2019 KINDRA DOZIER Ot I25.118 ATHSCL HEART DISEASE OF [place]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 ART W 10/12/2019 KINDRA DOZIER Ot I25.118 ATHSCL HEART DISEASE OF [place] COR ART W 10/13/2019 PIPER BARKSDALE, ARIN Hamilton Ot N20.0 CALCULUS OF KIDNEY 10/13/2019 PIPER BARKSDALE, ARIN Hamilton Ot N20.0 CALCULUS OF KIDNEY 11/01/2019 PIPER BARKSDALE, ARIN Hamilton Ot N20.0 CALCULUS OF KIDNEY 11/14/2019 Brenda LAGUNA MD Ot E66.01 MORBID (SEVERE) OBESITY DUE TO EXCESS CA 11/14/2019 Brenda LAGUNA MD Ot I10 ESSENTIAL (PRIMARY) HYPERTENSION 11/14/2019 Brenda LAGUNA MD Ot I73 .9 PERIPHERAL VASCULAR DISEASE, UNSPECIFIED 11/14/2019 Brenda LAGUNA MD Ot R07 .2 PRECORDIAL PAIN 11/14/2019 Brenda LAGUNA MD Ot Z72 .0 TOBACCO USE 11/18/2019 KINDRA DOZIER Ot I25.118 ATHSCL HEART DISEASE OF [place]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 11/18/2019 Brenda LAGUNA MD Ot E66.01 MORBID (SEVERE) OBESITY DUE TO EXCESS CA 11/18/2019 Brenda LAGUNA MD Ot I10 ESSENTIAL (PRIMARY) HYPERTENSION 11/18/2019 Brenda LAGUNA MD Ot I73 .9 PERIPHERAL VASCULAR DISEASE, UNSPECIFIED 11/18/2019 Brenda LAGUNA MD Ot R07 .2 PRECORDIAL PAIN 11/18/2019 Brenda LAGUNA MD Ot Z72 .0 TOBACCO USE 11/18/2019 ARIN SALDAÑA MD Ot N20.0 CALCULUS OF KIDNEY 11/18/2019 Brenda LAGUNA MD Ot E66 .9 OBESITY, UNSPECIFIED 11/18/2019 Brenda LAGUNA MD, Ot F17.210 NICOTINE DEPENDENCE, CIGARETTES, UNCOMPL 11/18/2019 Brenda LAGUNA MD, Ot G93 .2 BENIGN INTRACRANIAL HYPERTENSION 11/18/2019 Brenda LAGUNA MD, Ot I25.10 ATHSCL HEART DISEASE OF [place] CORONARY 11/18/2019 Brenda LAGUNA MD Ot I47 .1 SUPRAVENTRICULAR TACHYCARDIA 11/18/2019 Brenda LAGUNA MD Ot 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 11/18/2019 Brenda LAGUNA MD Ot R55 SYNCOPE AND COLLAPSE 11/18/2019 Brenda LAGUNA MD, Ot Z68.41 BODY MASS INDEX (BMI) 40.0-44.9, ADULT 11/18/2019 Brenda LAGUNA MD, Ot Z79.899 OTHER SOCIAL MEDIA MARKETING ANALYST (CURRENT) DRUG THERAPY 11/18/2019 Brenda LAGUNA MD, Ot Z88 .6 ALLERGY STATUS TO ANALGESIC AGENT STATUS 11/18/2019 Brenda LAGUNA MD, Ot Z88 .8 ALLERGY STATUS TO OTH DRUG/MEDS/BIOL SUB 11/18/2019 Brenda LAGUNA MD, Ot Z91.041 RADIOGRAPHIC DYE ALLERGY STATUS 11/28/2019 Brenda LAGUNA MD, Ot E66 .9 OBESITY, UNSPECIFIED 11/28/2019 Brenda LAGUNA MD, Ot F17.210 NICOTINE DEPENDENCE, CIGARETTES, UNCOMPL 11/28/2019 Brenda LAGUNA MD, Ot G93 .2 BENIGN INTRACRANIAL HYPERTENSION 11/28/2019 Brenda LAGUNA MD, Ot I25.10 ATHSCL HEART DISEASE OF [place] CORONARY 11/28/2019 Brenda LAGUNA MD Ot I47 .1 SUPRAVENTRICULAR TACHYCARDIA 11/28/2019 Brenda LAGUNA MD, Ot 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 11/28/2019 Brenda LAGUNA MD Ot R55 SYNCOPE AND COLLAPSE 11/28/2019 Brenda LAGUNA MD, Ot Z68.41 BODY MASS INDEX (BMI) 40.0-44.9, ADULT 11/28/2019 Brenda LAGUNA MD Ot Z79.899 OTHER SOCIAL MEDIA MARKETING ANALYST (CURRENT) DRUG THERAPY 11/28/2019 Brenda LAGUNA MD, Ot Z88 .6 ALLERGY STATUS TO ANALGESIC AGENT STATUS 11/28/2019 Brenda LAGUNA MD, Ot Z88 .8 ALLERGY STATUS TO OTH DRUG/MEDS/BIOL SUB 11/28/2019 Brenda LAGUNA MD Ot Z91.041 RADIOGRAPHIC DYE ALLERGY STATUS 12/03/2019 Brenda LAGUNA MD Ot E66.01 MORBID (SEVERE) OBESITY DUE TO EXCESS CA 12/03/2019 Brenda LAGUNA MD Ot I10 ESSENTIAL (PRIMARY) HYPERTENSION 12/03/2019 Brenda LAGUNA MD Ot I73 .9 PERIPHERAL VASCULAR DISEASE, UNSPECIFIED 12/03/2019 Brenda LAGUNA MD Ot R07 .2 PRECORDIAL PAIN 12/03/2019 Brenda LAGUNA MD Ot Z72 .0 TOBACCO USE 12/10/2019 Brenda LAGUNA MD Ot E66 .9 OBESITY, UNSPECIFIED 12/10/2019 Brenda LAGUNA MD Ot F17.210 NICOTINE DEPENDENCE, CIGARETTES, UNCOMPL 12/10/2019 Brenda LAGUNA MD Ot G93 .2 BENIGN INTRACRANIAL HYPERTENSION 12/10/2019 Brenda LAGUNA MD Ot I25.10 ATHSCL HEART DISEASE OF [place] CORONARY 12/10/2019 Brenda LAGUNA MD Ot I47 .1 SUPRAVENTRICULAR TACHYCARDIA 12/10/2019 Brenda LAGUNA MD Ot 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 12/10/2019 Brenda LAGUNA MD Ot R55 SYNCOPE AND COLLAPSE 12/10/2019 Brenda LAGUNA MD Ot Z68.41 BODY MASS INDEX (BMI) 40.0-44.9, ADULT 12/10/2019 Brenda LAGUNA MD, Ot Z79.899 OTHER GROUP HOME (CURRENT) DRUG THERAPY 12/10/2019 Brenda LAGUNA MD, Ot Z88 .6 ALLERGY STATUS TO ANALGESIC AGENT STATUS 12/10/2019 Brenda LAGUNA MD Ot Z88 .8 ALLERGY STATUS TO OTH DRUG/MEDS/BIOL SUB 12/10/2019 Brenda LAGUNA MD Ot Z91.041 RADIOGRAPHIC DYE ALLERGY STATUS 12/10/2019 KINDRA DOZIER Ot I25.10 ATHSCL HEART DISEASE OF [place] CORONARY 12/10/2019 KINDRA DOZIER Ot R22.1 LOCALIZED SWELLING, MASS AND LUMP, NECK Procedures Code Description [place] [address] Init ial inpatient consultation for a new or established patient, which requires these three torres comp Chago Hi MD 06/09/2016 54043 Subs equent hospital care per day for the evaluation and management of a patient which requires at Sergei Macias 06/17/2016 16973 Init ial inpatient consultation for a new or established patient, which requires these three torres comp Lukas Guthrie 06/17/2016 24837 Thor acoscopy, surgical; with excision of mediastinal cyst, tumor, or mass Chago Hi MD 07/02/2016 S2900 Surg ical techniques requiring use of robotic surgical system (list separately in addition to code Chago Velasco MD 07/02/2016 12198 Thor acoscopy, surgical; with excision of mediastinal cyst, tumor, or mass Joseph Rebollar DO 07/02/2016 40530 Post operative follow-up visit, normally included in the surgical package, to indicate that an evalua Chago Hi MD 08/09/2016 S2900 Surg ical techniques requiring use of robotic surgical system (list separately in addition to code Chago Velasco MD 11/19/2016 69892 Thor acoscopy, surgical; with excision of mediastinal cyst, tumor, or mass Joseph Rebollar DO 11/19/2016 51505 Subs equent hospital care per day for the evaluation and management of a patient which requires at Sergei Macias 11/19/2016 22026 Init ial inpatient consultation for a new or established patient, which requires these three torres comp Lukas Guthrie 12/09/2016 41876 Init ial hospital care, per day, for the evaluation and management of a patient which requires these Nold, Lukas Cid 12/11/2016 28847 [facility] care, per day, for the evaluation and management of a patient which requires these Nold, Lukas Cid 12/25/2016 90033 [facility] consultation for a new or established patient, which requires these three torres comp Chago Hi MD 01/07/2017 14553 [facility] care, per day, for the evaluation and management of a patient which requires these Chago Hi MD 01/08/2017 76229 [facility] care, per day, for the evaluation and management of a patient which requires these Chago Hi MD 01/27/2017 38325 Offi ce or other outpatient visit for the evaluation and management of an established patient, which Chago Hi MD 02/18/2018 06531 Offi ce or other outpatient visit for the evaluation and management of an established patient, which Chago Hi MD 03/03/2018 94018 Post operative follow-up visit, normally included in the surgical package, to indicate that an evalua Chago Hi MD 04/14/2018 04152 X-RA Y EXAM NECK SPINE 4/5VWS 11/02/2018 74321 X-RA Y EXAM OF SHOULDER 11/02/2018 Results Test Result Range CT NECK+CHEST WOW - 02/12/18 08:56 Document [facility] 06:45 Breakpoint +++++++++++++++ "" Sodium Lvl 138 mmol/L 136-145 Potassium Lvl 4.1 mmol/L 3.5-5.1 Chloride 105 mmol/L 98-107 CO2 23 mEq/L 21-32 AGAP 14.3 mmol/L 5.0-15.0 Glucose Lvl 100 mg/dL 74-106 BUN 15 mg/dL 7-18 Creatinine Lvl 0.73 mg/dL 0.55-1.30 Calcium Lvl 8.7 mg/dL 8.5-10.1 Osmolality Calc 277 "" 268-292 BUN/Creat Ratio 20.5 ratio 11.6-13.8 eGFR AA 105 mL/min 0-60 eGFR Non-AA 87 mL/min 0-60 Bili Total 0.2 mg/dL 0.2-1.0 Total Protein 7.6 gm/dL 6.4-8.2 Albumin Lvl 3.8 gm/dL 3.4-5.0 Alk Phos 95 unit/L 46-116 AST 16 unit/L 15-37 ALT 24 unit/L 12-78 A/G Ratio 1.0 ratio 1.1-1.6 Troponin-I - 02/20/19 06:45 Troponin-I <0.017 ng/mL 0.000-0.056 UA Microscopic - 02/20/19 07:00 Breakpoint +++++++++++++++ "" UA WBC 0-2 "" UA RBC None Seen "" UA Bacteria Few "" UA Squam Epithelial 6-10 "" Blood lactic acid measurement (moles/vol ume) - 09/27/19 08:04 Blood lactic acid measurement (moles/volume) 1.12 mmol/L 0.50-2.00 Bacterial blood culture - 09/27/19 08:04 Bacterial blood culture NG [facility] Complete blood count (CBC) with automate d white blood cell (WBC) differential - 09/27/19 10:15 Blood leukocytes automated count (number/volume) 8.9 10*3/uL 4.3-11.0 Blood erythrocytes automated count (number/volume) 4.96 10*6/uL 4.35-5.85 Venous blood hemoglobin measurement (mass/volume) 14.4 g/dL 11.5-16.0 Blood hematocrit (volume fraction) 44 % 35-52 Automated erythrocyte mean corpuscular volume 89 [ foz_us] 80-99 Automated erythrocyte mean corpuscular h emoglobin (mass per erythrocyte) 29 pg 25-34 Automated erythrocyte mean corpuscular h emoglobin concentration measurement (mass/volume) 33 g/dL 32-36 Automated erythrocyte distribution width ratio 16. 6 % 10.0- 14.5 Automated blood platelet count (count/volume) 325 10*3/uL 130-400 Automated blood platelet mean volume measurement 10.9 [foz_us] 7.4-10.4 Automated blood neutrophils/100 leukocytes 49 % 42-75 Automated blood lymphocytes/100 leukocytes 39 % 12-44 Blood monocytes/100 leukocytes 8 % 0-12 Automated blood eosinophils/100 leukocytes 3 % 0-10 Automated blood basophils/100 leukocytes 1 % 0-10 Blood neutrophils automated count (number/volume) 4.3 10*3 1.8-7.8 Blood lymphocytes automated count (number/volume) 3.5 10*3 1.0-4.0 Blood monocytes automated count (number/volume) 0. 7 10*3 0.0-1.0 Automated eosinophil count 0.3 10*3/uL 0 .0-0.3 Automated blood basophil count (count/volume) 0.0 10*3/uL 0.0-0.1 PT panel in platelet poor plasma by coag ulation assay - 09/27/19 10:15 Prothrombin time (PT) in platelet poor plasma by coagu lation assay 11.7 s 12.2-14.7 INR in platelet poor plasma or blood by coagulation as say 0.8 0.8-1.4 Activated partial thromboplastin time (a PTT) in platelet poor plasma bycoagulation assay - 09/27/19 10:15 Activated partial thromboplastin time (a PTT) in platelet poor plasma bycoagulation assay 31 s 24-35 Comprehensive metabolic panel - 09/27/19 10:15 Serum or plasma sodium measurement (moles/volume) 137 mmol/L 135-145 Serum or plasma potassium measurement (moles/volume) 5.6 mmol/L 3.6-5.0 Serum or plasma chloride measurement (moles/volume) 104 mmol/L 98-107 Carbon dioxide 22 mmol/L 21-32 Serum or plasma anion gap determination (moles/volume) 11 mmol/L 5-14 Serum or plasma urea nitrogen measurement (mass/volume ) 12 mg/dL 7-18 Serum or plasma creatinine measurement (mass/volume) 0.75 mg/dL 0.60-1.30 Serum or plasma urea nitrogen/creatinine mass ratio 16 NRG Serum or plasma creatinine measurement w ith calculation of estimated glomerular filtration rate > NRG Serum or plasma glucose measurement (mass/volume) 96 mg/dL 70-105 Serum or plasma calcium measurement (mass/volume) 8.9 mg/dL 8.5-10.1 Serum or plasma total bilirubin measurement (mass/volu me) 0.1 mg/dL 0.1-1.0 Serum or plasma alkaline phosphatase bernardino surement (enzymatic activity/volume) 96 U/L 40-136 Serum or plasma aspartate aminotransfera se measurement (enzymatic activity/volume) 24 U/L 5-34 Serum or plasma alanine aminotransferase measurement (enzymatic activity/volume) 28 U/L 0-55 Serum or plasma protein measurement (mass/volume) 7.6 g/dL 6.4-8.2 Serum or plasma albumin measurement (mass/volume) 4.2 g/dL 3.2-4.5 CALCIUM CORRECTED 8.7 mg/dL 8.5-10.1 Magnesium - 09/27/19 10:15 Magnesium 2.0 mg/dL 1.6-2.4 Myoglobin, serum - 09/27/19 10:15 Myoglobin, serum 18.7 ng/mL 10.0-92.0 Serum or plasma troponin i.cardiac measu rement (mass/volume) - 09/27/19 10:15 Serum or plasma troponin i.cardiac measurement (mass/v olume) < ng/mL <0.028 Complete urinalysis with reflex to cultu re - 09/27/19 10:15 Urine color determination YELLOW NRG Urine clarity determination CLEAR NR G Urine pH measurement by test strip 6.5 5-9 Specific gravity of urine by test strip 1.010 1.016-1.022 Urine protein assay by test strip, semi-quantitative NEGATIVE NEGATIVE Urine glucose detection by automated test strip NE GATIVE NEGATIVE Erythrocytes detection in urine sediment by light micr oscopy NEGATIVE NEGATIVE Urine ketones detection by automated test strip NE GATIVE NEGATIVE Urine nitrite detection by test strip NEGATIVE NEGATIVE Urine total bilirubin detection by test strip NEGA TIVE NEGATIVE Urine urobilinogen measurement by automated test strip (mass/volume) 0.2 mg/dL < = 1.0 Urine leukocyte esterase detection by dipstick NEG ATIVE NEGATIVE Automated urine sediment erythrocyte cou nt by microscopy (number/high power field) RARE NRG Automated urine sediment leukocyte count by microscopy (number/high power field) NONE NRG Bacteria detection in urine sediment by light microsco py NEGATIVE NRG Crystals detection in urine sediment by light microsco py NONE NRG Casts detection in urine sediment by light microscopy NONE NRG Mucus detection in urine sediment by light microscopy NEGATIVE NRG Complete urinalysis with reflex to culture NO NRG Urine drug screening test - 09/27/19 10: 15 Urine phencyclidine detection by screening method NEGATIVE NEGATIVE Urine benzodiazepines detection by screening method NEGATIVE NEGATIVE Urine cocaine detection NEGATIVE NEGATI VE Urine amphetamines detection by screening method N EGATIVE NEGATIVE Urine methamphetamine detection by screening method NEGATIVE NEGATIVE Urine cannabinoids detection by screening method N EGATIVE NEGATIVE Urine opiates detection by screening method NEGATI VE NEGATIVE Urine barbiturates detection NEGATIVE N EGATIVE Screening urine tricyclic antidepressants detection NEGATIVE NEGATIVE Urine methadone detection by screening method NEGA TIVE NEGATIVE Urine oxycodone detection POSITIVE NEGA TIVE Urine propoxyphene detection NEGATIVE N EGATIVE Methicillin resistant Staphylococcus aur eus (MRSA) screening culture - 09/27/19 10:15 Methicillin resistant Staphylococcus aureus (MRSA) scr eening culture NEG NRG Bacterial blood culture - 09/27/19 10:15 Bacterial blood culture NG NRG Serum or plasma lithium measurement (mol es/volume) - 09/27/19 10:55 BNP PT < 10.0 <100.0 ANTINUCLEAR ANTIBODIES TITER AND PATTE RN - 11/15/19 14:53 EMELIA PATTERN Nuclear, Homogeneous NRG EMELIA TITER 1:640 titer NRG Automated blood complete blood count (he mogram) panel - 11/18/19 12:57 Blood leukocytes automated count (number/volume) 8.4 10*3/uL 4.3-11.0 Blood erythrocytes automated count (number/volume) 4.66 10*6/uL 4.35-5.85 Venous blood hemoglobin measurement (mass/volume) 13.7 g/dL 11.5-16.0 Blood hematocrit (volume fraction) 42 % 35-52 Automated erythrocyte mean corpuscular volume 90 [ foz_us] 80-99 Automated erythrocyte mean corpuscular h emoglobin (mass per erythrocyte) 29 pg 25-34 Automated erythrocyte mean corpuscular h emoglobin concentration measurement (mass/volume) 33 g/dL 32-36 Automated erythrocyte distribution width ratio 15. 7 % 10.0- 14.5 Automated blood platelet count (count/volume) 334 10*3/uL 130-400 Automated blood platelet mean volume measurement 11.1 [foz_us] 7.4-10.4 PT panel in platelet poor plasma by coag ulation assay - 11/18/19 12:57 Prothrombin time (PT) in platelet poor plasma by coagu lation assay 12.7 s 12.2-14.7 INR in platelet poor plasma or blood by coagulation as say 0.9 0.8-1.4 Activated partial thromboplastin time (a PTT) in platelet poor plasma bycoagulation assay - 11/18/19 12:57 Activated partial thromboplastin time (a PTT) in platelet poor plasma bycoagulation assay 33 s 24-35 Methicillin resistant Staphylococcus aur eus (MRSA) screening culture - 11/18/19 12:57 Methicillin resistant Staphylococcus aureus (MRSA) scr eening culture NEG NRG Comprehensive metabolic panel - 11/18/19 13:46 Serum or plasma sodium measurement (moles/volume) 141 mmol/L 135-145 Serum or plasma potassium measurement (moles/volume) 4.0 mmol/L 3.6-5.0 Serum or plasma chloride measurement (moles/volume) 107 mmol/L 98-107 Carbon dioxide 28 mmol/L 21-32 Serum or plasma anion gap determination (moles/volume) 6 mmol/L 5-14 Serum or plasma urea nitrogen measurement (mass/volume ) 7 mg/dL 7-18 Serum or plasma creatinine measurement (mass/volume) 0.75 mg/dL 0.60-1.30 Serum or plasma urea nitrogen/creatinine mass ratio 9 NRG Serum or plasma creatinine measurement w ith calculation of estimated glomerular filtration rate > NRG Serum or plasma glucose measurement (mass/volume) 74 mg/dL 70-105 Serum or plasma calcium measurement (mass/volume) 8.8 mg/dL 8.5-10.1 Serum or plasma total bilirubin measurement (mass/volu me) 0.2 mg/dL 0.1-1.0 Serum or plasma alkaline phosphatase bernardino surement (enzymatic activity/volume) 88 U/L 40-136 Serum or plasma aspartate aminotransfera se measurement (enzymatic activity/volume) 14 U/L 5-34 Serum or plasma alanine aminotransferase measurement (enzymatic activity/volume) 21 U/L 0-55 Serum or plasma protein measurement (mass/volume) 7.1 g/dL 6.4-8.2 Serum or plasma albumin measurement (mass/volume) 4.0 g/dL 3.2-4.5 CALCIUM CORRECTED 8.8 mg/dL 8.5-10.1 CMP - 12/28/19 16:16 GLUCOSE 97 mg/dL 65-99 UREA NITROGEN (BUN) 13 mg/dL 7-25 CREATININE 0.64 mg/dL 0.50-1.10 eGFR NON-AFR. PERUVIAN 108 mL/min/1.73m2 > OR = 60 eGFR 125 mL/min/1.73m2 > OR = 60 BUN/CREATININE RATIO NOT APPLICABLE (calc) 6-22 SODIUM 140 mmol/L 135-146 POTASSIUM 4.8 mmol/L 3.5-5.3 CHLORIDE 105 mmol/L 98-110 CARBON DIOXIDE 24 mmol/L 20-32 CALCIUM 9.6 mg/dL 8.6-10.2 PROTEIN, TOTAL 7.0 g/dL 6.1-8.1 ALBUMIN 4.2 g/dL 3.6-5.1 GLOBULIN 2.8 g/dL (calc) 1.9-3.7 ALBUMIN/GLOBULIN RATIO 1.5 (calc) 1.0-2. 5 BILIRUBIN, TOTAL 0.3 mg/dL 0.2-1.2 ALKALINE PHOSPHATASE 81 U/L 31-125 AST 18 U/L 10-35 ALT 25 U/L 6-29 CBC - 12/28/19 16:16 WHITE BLOOD CELL COUNT 7.9 Thousand/uL 3 .8-10.8 RED BLOOD CELL COUNT 4.90 Million/uL 3.8 0-5.10 HEMOGLOBIN 14.0 g/dL 11.7-15.5 HEMATOCRIT 44.1 % 35.0-45.0 MCV 90.0 fL 80.0-100.0 MCH 28.6 pg 27.0-33.0 MCHC 31.7 g/dL 32.0-36.0 RDW 15.0 % 11.0-15.0 PLATELET COUNT 280 Thousand/uL 140-400 MPV 11.2 fL 7.5-12.5 ABSOLUTE NEUTROPHILS 4084 cells/uL 1500- 7800 ABSOLUTE LYMPHOCYTES 2820 cells/uL 850-3 900 ABSOLUTE MONOCYTES 672 cells/uL 200-950 ABSOLUTE EOSINOPHILS 261 cells/uL 15-500 ABSOLUTE BASOPHILS 63 cells/uL 0-200 NEUTROPHILS 51.7 % NRG LYMPHOCYTES 35.7 % NRG MONOCYTES 8.5 % NRG EOSINOPHILS 3.3 % NRG BASOPHILS 0.8 % NRG BNP - 12/28/19 16:16 B TYPE NATRIURETIC PEPTIDE (BNP) 24 pg/mL <100 Encounters ACCT No. Visit Date/Time Discharge Status Pt. Type Provider Facility Loc./Unit Complaint [id number] 02/22/2019 15:02:00 Document Registration [id number] 02/20/2019 05:45:00 Document Registration [id number] 05/08/2018 20:57:15 08/17/2 018 23:59:59 CLS Outpatient Chago Hi MD [id number] 04/06/2018 14:20:00 04/06/2018 14:20: 00 DIS Outpatient CHAGO HI S/P STERNOTOMY [id number] 05/03/2019 08:28:48 9 11:40:00 DIS Outpatient NIAKINDRA VERA Malgor[address] [facility] [id number] 02/20/2019 05:45:00 Document Registration [id number] 11/25/2019 13:41:00 23:59:59 CLS Outpatient KINDRA DOZIER [facility] RAD CORONARY ARTERY DISEASE [id number] 11/18/2019 11:50:00 22:15:00 DIS Outpatient Brenda LAGUNA MD [facility] CATH ABNORMAL STRESS TEST [id number] 11/11/2019 07:20:00 23:59:59 CLS Outpatient Brenda LAGUNA MD [facility] CARD PRECORDIAL PAIN [id number] 10/12/2019 09:39:00 23:59:59 CLS Outpatient ARIN SALDAÑA MD [facility] RAD BILAT FLANK PAIN [id number] 10/05/2019 07:43:00 23:59:59 CLS Outpatient KINDRA DOZIER [facility] CARD CORONARY ARTERY DISEASE [id number] 09/27/2019 09:57:00 12:33:00 DIS Emergency CHUCK FELIX APRN [facility] ER SOA;CHEST PAIN [id number] 09/21/2019 14:40:00 09/21/2019 23:59: 59 CLS Outpatient KINDRA DOZIER APRN [facility] [id number] 12/28/2019 14:40:00 Document Registration [id number] 11/15/2019 13:40:00 Document Registration [id number] 08/02/2019 10:58:49 08/02/2019 23:59: 59 CLS Outpatient Denise Leija [id number] 11/19/2018 16:04:00 11/19/2018 23:59:5 9 [facility] Outpatient [facility] Rebeca Torres
--- NOTE | 2020-01-04 15:20 | ED Cardiac General ---
History of Present Illness General Chief Complaint: Chest Pain Stated Complaint: CP, TACHY Source: patient Exam Limitations: no limitations History of Present Illness Date Seen by Provider: Jan 04, 2020 Time Seen by Provider: 15:18 Initial Comments to ER with chest pain and tachycardia since this morning. She had some vomiting once this morning. History of SVT. History of surgical resection of thymoma 2 in [address] Angela. Saw her primary care provider Travis Dozier this morning at the clinic who referred her to the hospital. She lives in [facility], her roommate is being tested for COVID-19 for fevers cough shortness of breath. She has no fevers she states that she does have a cough which is chronic and unchanged, shortness of breath which is chronic and unchanged. He does have some increased swelling to bilateral lower extremities. Reports that she has lupus. Smokes 1.5 pack of cigarettes per day. States chest pain has been constant since awakening this morning. Timing/Duration: constant Severity: moderate Location: central [facility] YOUTH CARE PROFESSIONAL: No ASA po YOUTH CARE PROFESSIONAL: No Associated Systoms: Weakness Allergies and Home Medications Allergies Coded Allergies: Iodinated Contrast Media (Verified Allergy, Unknown, 09/27/19) acetaminophen (Verified Allergy, Unknown, 09/27/19) cephalexin (Verified Allergy, Unknown, 09/27/19) fentanyl (Verified Allergy, Unknown, 09/27/19) hydromorphone (Verified Allergy, Unknown, 09/27/19) ketamine (Verified Allergy, Unknown, 09/27/19) ketorolac (Verified Allergy, Unknown, 09/27/19) lamotrigine (Verified Allergy, Unknown, 09/27/19) levofloxacin (Verified Allergy, Unknown, 09/27/19) propoxyphene (Verified Allergy, Unknown, 09/27/19) sulfamethoxazole (Verified Allergy, Unknown, 09/27/19) trimethoprim (Verified Allergy, Unknown, 09/27/19) Home Medications Cetirizine HCl 10 Mg Capsule, 10 MG PO DAILY, (Reported) Clonazepam 0.5 Mg Tablet, 0.5 MG PO BID, (Reported) Fluticasone Propionate 16 Gm [place].susp, 1 SPRAY NSEACH BID, (Reported) Hydrocodone Bit/Acetaminophen 1 Each Tablet, 1 EACH PO TID PRN for PAIN- MODERATE, (Reported) Levothyroxine Sodium 200 Mcg Tablet, 200 MCG PO DAILY, (Reported) Meclizine HCl 25 Mg Tablet, 25 MG PO TID, (Reported) Meloxicam 15 Mg Tablet, 15 MG PO DAILY, (Reported) Metoprolol Tartrate 25 Mg Tablet, 25 MG PO DAILY, (Reported) Naloxegol Oxalate 25 Mg Tablet, 25 MG PO DAILY, (Reported) Nitroglycerin 1 Each Patch.td24, 1 EACH TD DAILY, (Reported) APPLY IN AM REMOVE IN PM Nitroglycerin 0.4 Mg Tab.subl, 0.4 MG SL UD PRN for CHEST PAIN, (Reported) DISSOLVE UNDER TONGUE 1 Q 5 MIN X3 IF NO RELIEF CALL 911 Ondansetron HCl 4 Mg Tablet, 4 MG PO DAILY, (Reported) Sertraline HCl 100 Mg Tablet, 100 MG PO DAILY, (Reported) [Lidocaine] , 15 ML PO TID PRN for Throat Irritation, (Reported) Patient Home Medication List Home Medication List Reviewed: Yes Review of Systems Review of Systems Constitutional: see HPI; No chills, No fever EENTM: No Symptoms Reported Respiratory: See HPI, Cough, SOA at Rest Cardiovascular: See HPI, Chest Pain Gastrointestinal: See HPI, Nausea Genitourinary: No Symptoms Reported Musculoskeletal: no symptoms reported Skin: no symptoms reported Psychiatric/Neurological: No Symptoms Reported Endocrine: No Symptoms Reported Past Krgysmo-[id number]-Zsmffv Hx Patient Social History Type Used: Cigarettes Recent Hopitalizations: No Immunizations Up To Date Tetanus Booster (TDap): More than 5yrs PED Vaccines UTD: Yes Seasonal Allergies Seasonal Allergies: No Past Medical History Surgeries: Yes (THYMOMA REMOVALX2, INTERNAL MONITOR) Appendectomy, Bladder Surgery, Hysterectomy, Tubal Ligation Respiratory: Yes Asthma, COPD Cardiac: Yes (SVT) Heart Attack, Palpitations Neurological: Yes Headaches /Migraines, Seizure Disorder 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 oz. kg; 42.92 BMI Method: General Appearance: No Apparent Distress, WD/WN, Obese, Other (heart rate 107 sinus oxygen 97% on room air) HEENT: PERRL/EOMI, TMs Normal Neck: Full Range of Motion, Normal Inspection Respiratory: Lungs Clear, Normal Breath Sounds, No Accessory Muscle Use, No Respiratory Distress Cardiovascular: Normal Peripheral Pulses, Tachycardia Gastrointestinal: Non Tender, Soft Extremity: Normal Capillary Refill, Normal Inspection, Other (she claims swelling of BLE but due to body habitus im unable to appreciate this myself. There is NO pitting edema. no erythema of either lower leg. ) Neurologic/Psychiatric: Alert, Oriented x3 Skin: Normal Color, Warm/Dry Progress/Results/Core Measures Results/Orders Lab Results Laboratory Tests Test 01/04/20 15:00 01/04/20 15:20 01/04/20 15:36 Range/Units White Blood Count 9.4 4.3-11.0 10^3/uL Red Blood Count 5.23 4.35-5.85 10^6/uL Hemoglobin 15.3 11.5-16.0 G/DL Hematocrit 47 35-52 % Mean Corpuscular Volume 90 80-99 FL Mean Corpuscular Hemoglobin 29 25-34 PG Mean Corpuscular Hemoglobin Concent 33 32-36 G/DL Red Cell Distribution Width 15.5 H 10.0-14.5 % Platelet Count 341 130-400 10^3/uL Mean Platelet Volume 10.6 H 7.4-10.4 FL Neutrophils (%) (Auto) 58 42-75 % Lymphocytes (%) (Auto) 31 12-44 % Monocytes (%) (Auto) 8 0-12 % Eosinophils (%) (Auto) 2 0-10 % Basophils (%) (Auto) 0 0-10 % Neutrophils # (Auto) 5.5 1.8-7.8 X 10^3 Lymphocytes # (Auto) 2.9 1.0-4.0 X 10^3 Monocytes # (Auto) 0.8 0.0-1.0 X 10^3 Eosinophils # (Auto) 0.2 0.0-0.3 10^3/uL Basophils # (Auto) 0.0 0.0-0.1 10^3/uL Sodium Level 138 135-145 MMOL/L Potassium Level 4.2 3.6-5.0 MMOL/L Chloride Level 104 98-107 MMOL/L Carbon Dioxide Level 23 21-32 MMOL/L Anion Gap 11 5-14 MMOL/L Blood Urea Nitrogen 12 7-18 MG/DL Creatinine 0.76 0.60-1.30 MG/DL Estimat Glomerular Filtration Rate > 60 BUN/Creatinine Ratio 16 Glucose Level 113 H 70-105 MG/DL Calcium Level 9.0 8.5-10.1 MG/DL Corrected Calcium 8.8 8.5-10.1 MG/DL Magnesium Level 2.1 1.6-2.4 MG/DL Total Bilirubin 0.3 0.1-1.0 MG/DL Aspartate Amino Transf (AST/SGOT) 19 5-34 U/L Alanine Aminotransferase (ALT/SGPT) 22 0-55 U/L Alkaline Phosphatase 87 40-136 U/L Myoglobin 32.4 10.0-92.0 NG/ML Troponin I < 0.028 <0.028 NG/ML B-Type Natriuretic Peptide < 10.0 <100.0 PG/ML Total Protein 7.9 6.4-8.2 GM/DL Albumin 4.3 3.2-4.5 GM/DL Thyroid Stimulating Hormone (TSH) 1.33 0.35-4.94 UIU/ML Free Thyroxine 1.11 0.70-1.48 NG/DL Prothrombin Time 12.9 12.2-14.7 SEC INR Comment 0.9 0.8-1.4 Activated Partial Thromboplast Time 32 24-35 SEC D-Dimer 0.48 0.00-0.49 UG/ML My Orders Orders - CHUCK FELIX APRN Cbc With Automated Diff (01/04/20 15:08) Magnesium (01/04/20 15:08) Chest 1 View, Ap/Pa Only (01/04/20 15:08) Ekg Tracing (01/04/20 15:08) Comprehensive Metabolic Panel (01/04/20 15:08) Myoglobin Serum (01/04/20 15:08) Protime With Inr (01/04/20 15:08) Partial Thromboplastin Time (01/04/20 15:08) O2 (01/04/20 15:08) Monitor-Rhythm Ecg Trace Only (4/14/20 15:08) Lipid Panel (01/05/20 06:00) Ed Iv/Invasive Line Start (01/04/20 15:08) Troponin I (01/04/20 15:08) Coronavirus Sars-Cov-2 So 2019 (01/04/20 15:08) Aspirin Chewable Tablet (Baby Aspirin Ch (01/04/20 15:30) Oxycodone/Acet 10/325mg Tablet (Percocet (01/04/20 15:30) BNP (01/04/20 15:36) Thyroid Stimulating Hormone (01/04/20 15:36) Free T4 (Free Thyroxine) (01/04/20 15:36) Fibrin Degradation Products (01/04/20 15:38) Medications Given in ED Current Medications Medications Dose Ordered Sig/Yelitza Route Start Time Stop Time Status Last Admin Dose Admin Aspirin 324 mg ONCE ONCE PO 01/04/20 15:30 01/04/20 15:31 DC 01/04/20 15:35 324 MG Oxycodone/ Acetaminophen 1 tab ONCE ONCE PO 01/04/20 15:30 01/04/20 15:31 DC 01/04/20 15:42 1 TAB Vital Signs/I&O 01/04/20 01/04/20 14:50 14:50 Temp 37.2 Pulse 102 Resp 16 B/P (MAP) 133/74 (93) Pulse Ox 99 O2 Delivery Room Air Room Air Departure Communication (Admissions) in reviewing her old records she had a cardiac catheterization on 11-18-19 showing patent epicardial vessels. Impression Primary Impression: Chest pain Qualified Codes: R07.9 - Chest pain, unspecified Disposition: HOME, SELF-CARE Condition: Stable Departure-Patient Inst. Decision time for Depature: 16:11 Referrals: NO,LOCAL PHYSICIAN (PCP) Primary Care Physician KINDRA DOZIER (Family) Primary Care Physician Brenda ANGELA MD Patient Instructions: Chest Pain Add. Discharge Instructions: 1. You Must quit smoking 2. Return to er for any emergencies. Call Dr angela for follow up. Continue all current medications. All discharge instructions reviewed with patient and/or family. Voiced understanding. Copy Copies To 1: Brenda ANGELA MD, PETER J APRN Jan 04, 2020 15:20
[2020-01-04 15:21] LABS: BASOPHILS % (AUTO) 0 % (0-10); EOSINOPHILS # (AUTO) 0.2 10^3/uL (0.0-0.3); EOSINOPHILS % (AUTO) 2 % (0-10); HEMATOCRIT 47 % (35-52); HEMOGLOBIN 15.3 G/DL (11.5-16.0); LYMPHOCYTES # (AUTO) 2.9 X 10^3 (1.0-4.0); LYMPHOCYTES % (AUTO) 31 % (12-44); MEAN CORPUSCULAR HEMOGLOBIN 29 PG (25-34); MEAN CORPUSCULAR HGB CONC 33 G/DL (32-36); MEAN CORPUSCULAR VOLUME 90 FL (80-99); MEAN PLATELET VOLUME 10.6 FL (7.4-10.4); MONOCYTES # (AUTO) 0.8 X 10^3 (0.0-1.0); MONOCYTES % (AUTO) 8 % (0-12); NEUTROPHILS # (AUTO) 5.5 X 10^3 (1.8-7.8); NEUTROPHILS % (AUTO) 58 % (42-75); PLATELET COUNT 341 10^3/uL (130-400); RED CELL DISTRIBUTION WIDTH 15.5 % (10.0-14.5); WHITE BLOOD COUNT 9.4 10^3/uL (4.3-11.0)
[2020-01-04] MEDS ORDERED: ASPIRIN 81 MG CHEW (CHILDREN'S ASA) PO ONE (15:30)
[2020-01-04] MEDS ORDERED: oxyCODONE/APAP 10/325MG (PERCOCET 10) TABLET PO ONE (15:30)
[2020-01-04 15:33] LABS: ALBUMIN 4.3 GM/DL (3.2-4.5)
[2020-01-04 15:34] LABS: CHLORIDE 104 MMOL/L (98-107); POTASSIUM 4.2 MMOL/L (3.6-5.0); SODIUM 138 MMOL/L (135-145)
[2020-01-04 15:36] LABS: GLUCOSE 113 MG/DL (70-105); TOTAL PROTEIN 7.9 GM/DL (6.4-8.2)
--- NOTE | 2020-01-04 15:36 | NUR ---
COVID SWAB COMPLETED AND TO LAB
[2020-01-04 15:37] LABS: CARBON DIOXIDE 23 MMOL/L (21-32)
[2020-01-04 15:38] LABS: BILIRUBIN,TOTAL 0.3 MG/DL (0.1-1.0)
--- NOTE | 2020-01-04 15:38 | Diagnostic Imaging Report ---
INDICATION: Chest pain. COMPARISON: Comparison is made to prior examination of 09/27/2019. FINDINGS: The heart size is normal. There has been a previous median sternotomy. Mediastinum is unremarkable. There is no pleural effusion or pneumothorax. IMPRESSION: No acute cardiopulmonary abnormality. Dictated by: Dictated on workstation # [id number]
[2020-01-04 15:39] LABS: ALKALINE PHOSPHATASE 87 U/L (40-136)
[2020-01-04 15:40] LABS: CREATININE SERUM 0.76 MG/DL (0.60-1.30); GFR ESTIMATED > 60
[2020-01-04 15:41] LABS: BUN/CREATININE RATIO 16
[2020-01-04 15:42] LABS: MAGNESIUM 2.1 MG/DL (1.6-2.4)
[2020-01-04 15:43] LABS: ALANINE AMINOTRANSFERASE 22 U/L (0-55)
[2020-01-04 16:17] LABS: FREE T4 (FREE THYROXINE) 1.11 NG/DL (0.70-1.48)
[2020-01-04 16:22] LABS: FIBRIN DEGRADATION PRODUCTS 0.48 UG/ML (0.00-0.49); INR 0.9 (0.8-1.4); PROTHROMBIN TIME PATIENT 12.9 SEC (12.2-14.7)
[2020-01-04 16:38] VITALS: BP 126/72
--- NOTE | 2020-01-04 16:40 | NUR ---
1458 B/P 133/74 HR 105 1507 133/65 103 1515 134/66 105 1530 135/54 105 1545 112/73 103 1615 125/66 101 1630 126/72 96
== END 2020-01-04 16:40 | disposition home or self-care (01) ==
LOC: EDUNIT# 15:06 → ER 15:08
DX: R07.9 Chest pain, unspecified (principal); I47.1 Supraventricular tachycardia; J44.9 Chronic obstructive pulmonary disease, unspecified; F17.210 Nicotine dependence, cigarettes, uncomplicated; L93.0 Discoid lupus erythematosus; I25.2 Old myocardial infarction; G40.909 Epilepsy, unspecified, not intractable, without status epilepticus; K58.9 Irritable bowel syndrome, unspecified; M79.7 Fibromyalgia; M06.9 Rheumatoid arthritis, unspecified; E03.9 Hypothyroidism, unspecified; F41.9 Anxiety disorder, unspecified; F32.9 Major depressive disorder, single episode, unspecified
CPT/HCPCS: 36415; 71045; 80053; 83735; 83874; 83880; 84439; 84443; 84484; 85025; 85379; 85610; 85730; 87635; 93041

== ENCOUNTER 2020-03-20 12:42 | Emergency (ER) | payer MEDICAID ==
[2020-03-20] VITALS (8 sets, daily range): BP systolic 111–151; BP diastolic 63–103
[~2020-03-20] VITALS: Ht 165 cm; Wt 121.0 kg
[2020-03-20] MEDS ORDERED: ASPIRIN 81 MG CHEW (CHILDREN'S ASA) PO ONE (13:00)
[2020-03-20 13:25] LABS: BASOPHILS % (AUTO) 0 % (0-10); EOSINOPHILS # (AUTO) 0.1 10^3/uL (0.0-0.3); EOSINOPHILS % (AUTO) 1 % (0-10); HEMATOCRIT 45 % (35-52); HEMOGLOBIN 14.5 G/DL (11.5-16.0); LYMPHOCYTES # (AUTO) 2.8 X 10^3 (1.0-4.0); LYMPHOCYTES % (AUTO) 25 % (12-44); MEAN CORPUSCULAR HEMOGLOBIN 28 PG (25-34); MEAN CORPUSCULAR HGB CONC 32 G/DL (32-36); MEAN CORPUSCULAR VOLUME 87 FL (80-99); MEAN PLATELET VOLUME 11.2 FL (7.4-10.4); MONOCYTES # (AUTO) 1.1 X 10^3 (0.0-1.0); MONOCYTES % (AUTO) 10 % (0-12); NEUTROPHILS # (AUTO) 7.1 X 10^3 (1.8-7.8); NEUTROPHILS % (AUTO) 63 % (42-75); PLATELET COUNT 273 10^3/uL (130-400); RED CELL DISTRIBUTION WIDTH 15.8 % (10.0-14.5); WHITE BLOOD COUNT 11.2 10^3/uL (4.3-11.0)
[2020-03-20 13:39] LABS: ALBUMIN 4.3 GM/DL (3.2-4.5); CHLORIDE 106 MMOL/L (98-107); POTASSIUM 4.2 MMOL/L (3.6-5.0); SODIUM 141 MMOL/L (135-145)
[2020-03-20 13:40] LABS: CALCIUM 9.5 MG/DL (8.5-10.1); FIBRIN DEGRADATION PRODUCTS 0.72 UG/ML (0.00-0.49); INR 0.9 (0.8-1.4)
[2020-03-20 13:41] LABS: GLUCOSE 94 MG/DL (70-105); TOTAL PROTEIN 7.8 GM/DL (6.4-8.2)
[2020-03-20 13:42] LABS: CARBON DIOXIDE 24 MMOL/L (21-32)
[2020-03-20 13:43] LABS: BILIRUBIN,TOTAL 0.3 MG/DL (0.1-1.0)
[2020-03-20] MEDS ORDERED: morphine INJ 10 MG/ML 1ML (SYR OR VIAL) IVP STA (13:44)
[2020-03-20 13:45] LABS: ALKALINE PHOSPHATASE 115 U/L (40-136); CREATININE SERUM 0.75 MG/DL (0.60-1.30); GFR ESTIMATED > 60
[2020-03-20 13:46] LABS: BUN/CREATININE RATIO 11
[2020-03-20 13:48] LABS: ALANINE AMINOTRANSFERASE 18 U/L (0-55); MAGNESIUM 2.1 MG/DL (1.6-2.4)
[2020-03-20 13:49] LABS: LIPASE 29 U/L (8-78)
--- NOTE | 2020-03-20 13:52 | ED Chest Pain ---
General Chief Complaint: Chest Pain Stated Complaint: CHEST PAIN Source: patient Exam Limitations: no limitations History of Present Illness Date Seen by Provider: Mar 20, 2020 Time Seen by Provider: 12:42 Initial Comments 44-year-old female who presents to the emergency room with complaints of chest, neck, back pain for the past 2 days. She was seen and evaluated in [facility] emergency room yesterday and was told that she had an infection in her lung. 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 She also complains of abscess to her left axilla area that has been draining for the past week. She reports that her pain medication is no longer working since her shoulder surgery 1 month ago. Has history of SVT and nyasia. Denies fever or cough. She also reports that she is out of her robaxin muscle re laxer. Timing/Duration: 1-2 days Location: substernal, back Radiation: neck ASA po EDGE BONDER: No NTG SL EDGE BONDER: Yes (2) Associated Symptoms: denies symptoms Allergies and Home Medications Allergies Coded Allergies: Iodinated Contrast Media (Verified Allergy, Unknown, 09/27/19) acetaminophen (Verified Allergy, Unknown, 09/27/19) cephalexin (Verified Allergy, Unknown, 09/27/19) fentanyl (Verified Allergy, Unknown, 09/27/19) hydromorphone (Verified Allergy, Unknown, 09/27/19) ketamine (Verified Allergy, Unknown, 09/27/19) ketorolac (Verified Allergy, Unknown, 09/27/19) lamotrigine (Verified Allergy, Unknown, 09/27/19) levofloxacin (Verified Allergy, Unknown, 09/27/19) propoxyphene (Verified Allergy, Unknown, 09/27/19) sulfamethoxazole (Verified Allergy, Unknown, 09/27/19) trimethoprim (Verified Allergy, Unknown, 09/27/19) Home Medications Cetirizine HCl 10 Mg Capsule, 10 MG PO DAILY, (Reported) Clonazepam 0.5 Mg Tablet, 0.5 MG PO BID, (Reported) Fluticasone Propionate 16 Gm Decker.susp, 1 SPRAY NSEACH BID, (Reported) Hydrocodone Bit/Acetaminophen 1 Each Tablet, 1 EACH PO TID PRN for PAIN- MODERATE, (Reported) Levothyroxine Sodium 200 Mcg Tablet, 200 MCG PO DAILY, (Reported) Meclizine HCl 25 Mg Tablet, 25 MG PO TID, (Reported) Meloxicam 15 Mg Tablet, 15 MG PO DAILY, (Reported) Methocarbamol 750 Mg Tablet, 750 MG PO Q8H PRN for SPASMS Prescribed by: MARGAUX OSBORN on 03/20/20 1523 Metoprolol Tartrate 25 Mg Tablet, 25 MG PO DAILY, (Reported) Naloxegol Oxalate 25 Mg Tablet, 25 MG PO DAILY, (Reported) Nitroglycerin 1 Each Patch.td24, 1 EACH TD DAILY, (Reported) APPLY IN AM REMOVE IN PM Nitroglycerin 0.4 Mg Tab.subl, 0.4 MG SL UD PRN for CHEST PAIN, (Reported) DISSOLVE UNDER TONGUE 1 Q 5 MIN X3 IF NO RELIEF CALL 911 Ondansetron HCl 4 Mg Tablet, 4 MG PO DAILY, (Reported) Sertraline HCl 100 Mg Tablet, 100 MG PO DAILY, (Reported) [Lidocaine] , 15 ML PO TID PRN for Throat Irritation, (Reported) Patient Home Medication List Home Medication List Reviewed: Yes Review of Systems Review of Systems Constitutional: see HPI; No chills, No fever Cardiovascular: See HPI, Chest Pain All Other Systems Reviewed Negative Unless Noted: Yes Past [id number]-[id number] Hx Past Med/Social Hx: Reviewed Nursing Past Med/Soc Hx Patient Social History Type Used: Cigarettes Recent Hopitalizations: No Physical Abuse: No Sexual Abuse: No Mistreated: No Fear: No Immunizations Up To Date Tetanus Booster (TDap): More than 5yrs PED Vaccines UTD: Yes Seasonal Allergies Seasonal Allergies: No Past Medical History Surgeries: Yes (THYMOMA REMOVALX2, INTERNAL MONITOR) Appendectomy, Bladder Surgery, Hysterectomy, Tubal Ligation Respiratory: Yes Asthma, COPD Cardiac: Yes (SVT) Heart Attack, Palpitations Neurological: Yes Headaches /Migraines, Seizure Disorder 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 oz. kg; 44.00 BMI Method: General Appearance: No Apparent Distress, WD/WN Respiratory: Chest Non Tender, Lungs Clear, Normal Breath Sounds, No Accessory Muscle Use, No Respiratory Distress Cardiovascular: Regular Rate, Rhythm, No Edema, No Gallop, No JVD, No Murmur, Normal Peripheral Pulses Gastrointestinal: Normal Bowel Sounds, No Organomegaly, No Pulsatile Mass, Non Tender, Soft Extremity: Normal Capillary Refill, Normal Inspection, Normal Range of Motion, Non Tender, No Calf Tenderness, No Pedal Edema Neurologic/Psychiatric: Alert, Oriented x3, Normal Mood/Affect Skin: Normal Color, Warm/Dry Focused Exam Lactate Level 03/20/20 13:05: Lactic Acid Level 1.41 Lactic Acid Level Laboratory Tests Test 03/20/20 13:05 Lactic Acid Level 1.41 MMOL/L (0.50-2.00) Progress/Results/Core Measures Results/Orders Lab Results Laboratory Tests Test 03/20/20 13:05 03/20/20 15:00 Range/Units White Blood Count 11.2 H 4.3-11.0 10^3/uL Red Blood Count 5.17 4.35-5.85 10^6/uL Hemoglobin 14.5 11.5-16.0 G/DL Hematocrit 45 35-52 % Mean Corpuscular Volume 87 80-99 FL Mean Corpuscular Hemoglobin 28 25-34 PG Mean Corpuscular Hemoglobin Concent 32 32-36 G/DL Red Cell Distribution Width 15.8 H 10.0-14.5 % Platelet Count 273 130-400 10^3/uL Mean Platelet Volume 11.2 H 7.4-10.4 FL Neutrophils (%) (Auto) 63 42-75 % Lymphocytes (%) (Auto) 25 12-44 % Monocytes (%) (Auto) 10 0-12 % Eosinophils (%) (Auto) 1 0-10 % Basophils (%) (Auto) 0 0-10 % Neutrophils # (Auto) 7.1 1.8-7.8 X 10^3 Lymphocytes # (Auto) 2.8 1.0-4.0 X 10^3 Monocytes # (Auto) 1.1 H 0.0-1.0 X 10^3 Eosinophils # (Auto) 0.1 0.0-0.3 10^3/uL Basophils # (Auto) 0.0 0.0-0.1 10^3/uL Prothrombin Time 13.0 12.2-14.7 SEC INR Comment 0.9 0.8-1.4 Activated Partial Thromboplast Time 33 24-35 SEC D-Dimer 0.72 H 0.00-0.49 UG/ML Sodium Level 141 135-145 MMOL/L Potassium Level 4.2 3.6-5.0 MMOL/L Chloride Level 106 98-107 MMOL/L Carbon Dioxide Level 24 21-32 MMOL/L Anion Gap 11 5-14 MMOL/L Blood Urea Nitrogen 8 7-18 MG/DL Creatinine 0.75 0.60-1.30 MG/DL Estimat Glomerular Filtration Rate > 60 BUN/Creatinine Ratio 11 Glucose Level 94 70-105 MG/DL Lactic Acid Level 1.41 0.50-2.00 MMOL/L Calcium Level 9.5 8.5-10.1 MG/DL Corrected Calcium 9.3 8.5-10.1 MG/DL Magnesium Level 2.1 1.6-2.4 MG/DL Total Bilirubin 0.3 0.1-1.0 MG/DL Aspartate Amino Transf (AST/SGOT) 12 5-34 U/L Alanine Aminotransferase (ALT/SGPT) 18 0-55 U/L Alkaline Phosphatase 115 40-136 U/L Myoglobin 19.9 10.0-92.0 NG/ML Troponin I < 0.028 < 0.028 <0.028 NG/ML B-Type Natriuretic Peptide 16.5 <100.0 PG/ML Total Protein 7.8 6.4-8.2 GM/DL Albumin 4.3 3.2-4.5 GM/DL Lipase 29 8-78 U/L My Orders Orders - BERNOT,MARGAUX Aspirin Chewable Tablet (Baby Aspirin Ch (03/20/20 13:00) Cbc With Automated Diff (03/20/20 12:49) Magnesium (03/20/20 12:49) Chest 1 View, Ap/Pa Only (03/20/20 12:49) Ekg Tracing (03/20/20 12:49) Comprehensive Metabolic Panel (03/20/20 12:49) Myoglobin Serum (03/20/20 12:49) Protime With Inr (03/20/20 12:49) Partial Thromboplastin Time (03/20/20 12:49) O2 (03/20/20 12:49) Monitor-Rhythm Ecg Trace Only (03/20/20 12:49) Ed Iv/Invasive Line Start (03/20/20 12:49) Lipase (03/20/20 12:49) BNP (03/20/20 12:49) Lactic Acid Analyzer (03/20/20 12:58) Blood Culture (03/20/20 12:58) Troponin I (03/20/20 13:05) Fibrin Degradation Products (03/20/20 13:05) Morphine Injection (Morphine Injection (03/20/20 13:44) Troponin I (03/20/20 14:53) Enoxaparin Injection (Lovenox Injection) (03/20/20 16:00) Medications Given in ED Current Medications Medications Dose Ordered Sig/Yelitza Route Start Time Stop Time Status Last Admin Dose Admin Enoxaparin Sodium 120 mg ONCE ONCE SC 03/20/20 16:00 03/20/20 16:01 DC 03/20/20 16:15 120 MG Vital Signs/I&O 03/20/20 03/20/20 03/20/20 03/20/20 12:50 13:00 13:15 13:30 Temp 37.0 Pulse 108 98 98 Resp 22 22 22 B/P (MAP) 144/84 (104) 134/81 (98) 151/103 (119) Pulse Ox 97 96 97 O2 Delivery Room Air Room Air Room Air Room Air 03/20/20 03/20/20 03/20/20 03/20/20 13:45 14:15 14:45 15:30 Pulse 102 101 97 100 Resp 20 20 20 20 B/P (MAP) 120/72 (88) 133/74 (93) 136/63 (87) 123/87 (99) Pulse Ox 96 96 97 96 O2 Delivery Room Air Room Air Room Air Room Air 03/20/20 03/20/20 15:45 16:20 Temp 37.0 37.0 Pulse 102 101 Resp 20 20 B/P (MAP) 113/84 (94) 111/81 (94) Pulse Ox 97 97 O2 Delivery Room Air Room Air Progress Progress Note : Time: 14:49 Progress Note I have seen and evaluated the patient. I have informed her of her laboratory and imaging studies. I discussed the case with Dr. Eden and she recommends giving the patient a dose of lovenox and having VQ scan tomorrow to further rule out elevated ddimer. Patient agrees with plan of care, plans for discharge, return precautions were given. Departure Impression Primary Impression: Chest pain Additional Impression: Elevated d-dimer Disposition: 01 HOME, SELF-CARE Condition: Stable/Unchanged Departure-Patient Inst. Decision time for Depature: 14:49 Referrals: NO,LOCAL PHYSICIAN (PCP) Primary Care Physician KINDRA DOZIER (Family) Primary Care Physician Patient Instructions: Chest Pain (DC) Add. Discharge Instructions: Take medications as directed. Return back to the hospital tomorrow at 10 AM for your V/Q scan. Return back to the emergency room for worsening symptoms, chest pain, shortness of breath, or concerns as needed. Follow-up with your primary care provider within 1 week for recheck. All discharge instructions reviewed with patient and/or family. Voiced understanding. Scripts Methocarbamol (Robaxin-750) 750 Mg Tablet 750 MG PO Q8H PRN for SPASMS, #20 TAB Prov: MARGUAX OSBORN 03/20/20 MARGAUX OSBORN Mar 20, 2020 13:52
--- NOTE | 2020-03-20 14:10 | Diagnostic Imaging Report ---
INDICATION: Chest pain. Comparison made with prior examination from 01/04/2020. FINDINGS: The heart size, mediastinal configuration, and pulmonary vascularity are within normal limits. There is no pleural effusion, pneumothorax, or pneumonia. The osseous structures are unremarkable. IMPRESSION: No acute cardiopulmonary abnormality. Dictated by: Dictated on workstation # [id number]
--- OUTSIDE RECORDS SUMMARY | 2020-03-20 14:23 | XMS REPORT | Continuity of Care Document ---
Author Organization Unknown Address Unknown Phone Unavailable Allergies Active Description Code Type Severity Reaction Onset Reported/Identified Relationship to Patient Clinical Status Yes No Known Drug Allergies [id number] Miscellaneous Allergy Moderate N/A Yes Contrast Media Drug Allergy Severe [id number] Yes Keflex Drug Allergy Severe [id number] Yes Dilaudid Drug Allergy Unknown 45201 Yes LaMICtal Drug Allergy Unknown 38731 Yes Levaquin Drug Allergy Unknown unknown Yes Toradol Drug Allergy Unknown [id number] Yes Bactrim [id number] Drug Mild [id number] Yes contrast media (iodine-based) Drug Moderate [id number] Yes Darvocet A500 f83807 Drug Mild [id number] Yes Dilaudid g62019 Drug Mo derate Vomitting Yes Keflex t01386 Drug Mild M- 28655 Yes Levaquin [id number] Drug Mild [id number] Yes Topamax d57609 Drug Mild 29272 Yes Toradol k08908 Drug Mod erate Facial swelling Yes acetaminophen 1605 1 N/A N/A Yes [...] trimethoprim 2873 1 N/A N/A Yes Bactrim ##NOMEN##,AL1,ceStru ct,allergy,1237,37995598 Drug Mild ##NOMEN##,AL1,string,reaction,635719,03910912 Yes contrast media (iodine-based) ##NOMEN##,AL1,ceStruct,allergy,1236,43363420 Drug Moderate N/A Yes Darvocet-N 100 ##NOMEN##,AL1,ceStruct,allergy,1237,60096034 Drug Severe N/A Yes Dilaudid ##NOMEN##,AL1,ceStru ct,allergy,1237,62695234 Drug Moderate VOMITING Yes fentaNYL ##NOMEN##,AL1,ceStru ct,allergy,1237,72275121 Drug Moderate LEG SHAKES Yes Keflex ##NOMEN##,AL1,ceStru ct,allergy,1237,57023716 Drug Severe ##NOMEN##,AL1,string,reaction,337975,60771971 Yes ketamine ##NOMEN##,AL1,ceStru ct,allergy,1237,564 Drug Moderate N/A Yes LaMICtal ##NOMEN##,AL1,ceStru ct,allergy,1237,53244773 Drug Severe ##NOMEN##,AL1,string,reaction,543130,[id number]~##NOMEN##,AL1,string,reaction,6739 67,[id number]~##NOMEN##,AL1,string,reaction,59140736,[id number] Yes Levaquin ##NOMEN##,AL1,ceStru ct,allergy,1237,17735729 Drug Mild ##NOMEN##,AL1,string ,reaction,1242,90916863 Yes Toradol ##NOMEN##,AL1,ceStru ct,allergy,1237,45004613 Drug Mild HIVES Yes Bactrim NKMA Mild N/A 05/30/2016 Yes cephalexin NKMA Severe N/A 05/30/2016 Yes contrast media (iodine-based) NKMA N/A N/A 05/30/2016 Yes Dilaudid NKMA Medium N/A 05/30/2016 Yes Levaquin NKMA Medium N/A 05/30/2016 Yes Mushroom 64986 Medium N/A 05/30/2016 Yes Toradol NKMA N/A N/A 05/30/2016 Yes Bactrim Drug Allergy Unknown N/A 02/02/2018 Yes DARVOCET-N 100 Drug Allergy Unknown N/A 02/02/2018 Yes Dilaudid Drug Allergy Unknown N/A 02/02/2018 Yes iodine Drug Allergy Unknown N/A 02/02/2018 Yes Keflex Drug Allergy Unknown N/A 02/02/2018 Yes Levaquin Drug Allergy Unknown N/A 02/02/2018 Yes TORADOL Drug Allergy Unknown N/A 02/02/2018 Yes contrast media (iodine-based) ##NOMEN##,AL1,ceStruct,allergy,1236,39278492 Drug Severe ##NOMEN##,AL1,string,reaction,954601,[id number]~##NOMEN##,AL1,string,reaction,6739 67,[id number]~##NOMEN##,AL1,string,reaction,589793,58581708 02/05/2018 Yes Pea 96534 Mild N/A 03/21/2018 Yes Versed ##NOMEN##,AL1,ceStru ct,allergy,1237,20205127 Drug Moderate LEG SHAKING 05/03/2019 Yes acetaminophen [id number] Michael g Allergy Unknown N/A 09/27/2019 Yes cephalexin [id number] Drug Allerg y Unknown N/A 09/27/2019 Yes fentanyl [id number] Drug Allergy Unknown N/A 09/27/2019 Yes hydromorphone [id number] Michael g Allergy Unknown N/A 09/27/2019 Yes Iodinated Contrast Media [id number] Drug Allergy Unknown N/A 09/27/2019 Yes ketamine [id number] Drug Allergy Unknown N/A 09/27/2019 Yes ketorolac [id number] Drug Allergy Unknown N/A 09/27/2019 Yes lamotrigine [id number] Drug Aller gy Unknown N/A 09/27/2019 Yes levofloxacin [id number] Drug Allergy Unknown N/A 09/27/2019 Yes propoxyphene [id number] Drug Allergy Unknown N/A 09/27/2019 Yes sulfamethoxazole [id number] Drug Allergy Unknown N/A 09/27/2019 Yes trimethoprim [id number] Drug Allergy Unknown N/A 09/27/2019 Medications Medication Packaging Start Date St op Date Route Dosage Sig divalproex sodium(Depakote) 05/30/2016 Oral 500 mg 500 mg, Oral, TID, 0 Refill(s) levothyroxine(levothyroxine) 05/30/2016 06/06/2016 Oral 75 mcg 75 mcg, Oral, Daily, 0 Refill(s) HYDROcodone-acetaminophen(No rco 5 mg-325 mg oral tablet) 2 tabs 05/30/2016 06/06/2016 Oral 2 tabs, Oral, q6 hr, PRN: Pain Severe (7-10), 0 Refill(s) nicotine(nicotine 21 mg/24 h r transdermal film, extended release) 1 patches 05/30/2016 06/06/2016 TransDermal 1 patches, Trans Dermal, Daily morphine(morphine) 0.5 mL 05/30/2016 06/03/2016 IV Push 1 mg 1 mg = 0.5 mL, IV Push, q2hr, PRN: Pain Severe (7-10) ondansetron(Zofran) 2 mL 05/30/2016 06/06/2016 IV Push 4 mg 4 mg = 2 mL, IV Push, q6hr, PRN: Nausea acetaminophen(acetaminophen) 2 tabs 05/30/2016 06/06/2016 Oral 650 mg 650 mg = 2 tabs, Oral, q4hr, PRN: Other (See Comment) HYDROcodone-acetaminophen(No rco 5 mg-325 mg oral tablet) 2 tabs 05/30/2016 06/03/2016 Oral 2 tabs, Oral, q6 hr, PRN: Pain Severe (7-10) levothyroxine(levothyroxine) 1 tabs 05/30/2016 05/31/2016 Oral 75 mcg 75 mcg = 1 tabs, Oral, Daily docusate-senna(Senokot S 50 mg-8.6 mg oral tablet) 1 tabs 05/31/2016 06/06/2016 Oral 1 tabs, Oral, Daily, PRN: Co nstipation levothyroxine(levothyroxine) 1 tabs 05/31/2016 06/06/2016 Oral 112 mcg 112 mcg = 1 tabs, Oral, Daily clindamycin(clindamycin) 2 c aps 05/31/2016 06/06/2016 Oral 300 mg 300 mg = 2 caps, Oral, q6hr pantoprazole(Protonix) 1 tab s 05/31/2016 06/06/2016 Oral 40 mg 40 mg = 1 tabs, Oral, Before Breakfast docusate(Colace) 1 caps 05/31/2016 06/06/2016 Oral 100 mg 100 mg = 1 caps, Oral, BID lactulose(lactulose) 30 mL 05/31/2016 06/06/2016 Oral 20 g 20 g = 30 mL, Oral, TID, PRN: Constipation polyethylene glycol 3350(MiraLax) 1 packets 05/31/2016 06/06/2016 Oral 17 g 17 g = 1 packets, Oral, Daily magnesium citrate(magnesium citrate) 300 mL 06/02/2016 06/06/2016 Oral 300 mL, Oral, Daily, PRN: Constipation HYDROcodone-acetaminophen(HY DROcodone-acetaminophen 10 mg-325 mg oral tablet) 06/03/20162015 Oral 1-2 tab, Oral, q4hr, PRN: Pain Severe (7-10) benzonatate(Tessalon Perles) 1 caps 06/03/2016 06/06/2016 Oral 100 mg 100 mg = 1 caps, Oral, TID, PRN: Cough Lactated Ringers Injection(L actated Ringers 1,000 mL) 1,000 mL 06/04/2016 06/04/2016 IV 10 mL/hr, IV midazolam(Versed) 1 mL 06/04/2016 06/04/2016 IV Push 1 mg 1 mg = 1 mL, IV Push, Once fentaNYL(Sublimaze) 06/04/2016 06/04/2016 IV Push 50 mcg 50 mcg, IV Push, Once oxymetazoline nasal(Afrin 0.05% nasal spra y) 1 sprays 06/04/2016 06/04/2016 Nasal 1 sprays, Nasal, q10min, PRN : Nasal Congestion Sodium Chloride 0.9%(sodium chloride 0.9% 1,000 mL) 1,000 mL 06/04/2016 06/05/2016 IV 100 mL/hr, IV morphine(morphine 2 mg/mL syringe 1 mL) 06/04/2016 06/05/2016 IV 2mg -4 mg, IV, q1hr, PRN: Pain Severe (7-10) morphine(morphine) 1 mL 06/04/2016 06/04/2016 IV Push 2 mg 2 mg = 1 mL, IV Push, q5min, PRN: Pain - Breakthrough metoclopramide(Reglan) 2 mL 06/05/2016 06/06/2016 IV Push 10 mg 10 mg = 2 mL, IV Push, q6hr, PRN: Nausea or Vomiting enoxaparin(Lovenox) 0.4 mL 06/05/2016 06/06/2016 SubCutaneous 40 mg 40 mg = 0.4 mL, SubCutaneous, Daily furosemide(Lasix) 4 mL 06/05/2016 06/05/2016 IV Push 40 mg 40 mg = 4 mL, IV Push, Once potassium chloride(potassium chloride 20 mEq oral tablet, extended release) 1 tabs 06/05/2016 06/05/2016 Oral 20 mEq 20 mEq = 1 tabs, Oral, Once morphine(morphine) 1 mL 06/05/2016 06/05/2016 IV Push 2 mg 2 mg = 1 mL, IV Push, q4hr, PRN: Pain Severe (7-10) furosemide(Lasix) 4 mL 06/05/2016 06/05/2016 IV Push 40 mg 40 mg = 4 mL, IV Push, Once potassium chloride(potassium chloride 20 mEq oral tablet, extended release) 2 tabs 06/05/2016 06/05/2016 Oral 40 mEq 40 mEq = 2 tabs, Oral, Once morphine(morphine 4 mg/mL syringe 1 mL) 1 mL 06/05/2016 06/06/2016 IV Push 4 mg 4 mg = 1 mL, IV Push, q2hr, PRN: Pain Severe (7-10) levothyroxine(levothyroxine 112 mcg (0.112 mg) oral tablet) 1 tabs 06/06/2016 Oral 1 12 mcg 112 mcg = 1 tabs, Oral, Elvis y, 0 Refill(s) HYDROcodone-acetaminophen(HY DROcodone-acetaminophen 10 mg-325 mg oral tablet) 06/06/2016 Oral 1-2 tab, Oral, q 4hr, PRN: Pain Severe (7- 10), 0 Refill(s) clindamycin(clindamycin 150 mg oral capsul e) 2 caps 06/06/2016 06/16/2016 Oral 300 mg 300 mg = 2 caps, Oral, q8hr (scheduled), for 10 days, 0 Refill(s) Rozerem 8 mg tablet Tablet 02/02/2018 8 [...] 1 (one) Tablet by Oral route daily [place] 10 mg-325 mg tablet [place] 02/02/2018 [...] Oral route the morning of the exam ondansetron(Zofran) 2 mL 03/20/2018 03/20/2018 IV Push 4 mg 4 mg = 2 mL, IV Push, Once levothyroxine(levothyroxine) 1 tabs 03/20/2018 03/24/2018 Oral 112 mcg 112 mcg = 1 tabs, Oral, Daily metoclopramide(Reglan) 2 mL 03/20/2018 03/24/2018 IV Push 10 mg 10 mg = 2 mL, IV Push, q6hr, PRN: Nausea docusate(Colace) 2 caps 03/20/2018 03/24/2018 Oral 200 mg 200 mg = 2 caps, Oral, Daily oxyCODONE(oxyCODONE) 2 tabs 03/20/2018 03/24/2018 Oral 10 mg 10 mg = 2 tabs, Oral, q4hr, PRN: Pain Severe (7-10) nalOXone(Narcan) 1 mL 03/20/2018 03/24/2018 IV Push 0.4 mg 0.4 mg = 1 mL, IV Push, Daily, PRN: Opiate Reversal morphine(morphine) 2 mL 03/20/2018 03/23/2018 IV Push 4 mg 4 mg = 2 mL, IV Push, q2hr, PRN: Pain Severe (7-10) ondansetron(Zofran) 2 mL 03/20/2018 03/24/2018 IV Push 4 mg 4 mg = 2 mL, IV Push, q6hr, PRN: Nausea heparin(heparin) 1 mL 03/20/2018 03/24/2018 SubCutaneous 5,000 units 5,000 units = 1 mL, SubCutaneous, q8hr Al hydroxide/Mg hydroxide/si methicone(Maalox Advanced Maximum Strength oral suspension) 15 mL 03/20/20 18 03/24/2018 Oral 15 mL, Oral, q4hr, PRN: GERD/Heartburn polyethylene glycol 3350(MiraLax) 1 packets 03/20/2018 03/24/2018 Oral 17 g 17 g = 1 packets, Oral, Daily gabapentin(gabapentin) 1 cap s 03/20/2018 03/24/2018 Oral 300 mg 300 mg = 1 caps, Oral, TID senna(Senokot) 1 tabs 03/20/2018 03/24/2018 Oral 8.6 mg 8.6 mg = 1 tabs, Oral, BID Sodium Chloride 0.9%(Sodium Chloride 0.9% 1,000 mL) 1,000 mL 03/20/2018 03/20/2018 IV 100 mL/hr, IV acetaminophen(acetaminophen) 1 supp 03/20/2018 03/23/2018 Rectal 650 mg 650 mg = 1 supp, Rectal, q4hr, PRN: Fever ocular lubricant(Lacri-Lube S.O.P. ophthalmic ointment) 1 britt 03/20/2018 03/24/2018 Eye-Paul th 3.5 g 3.5 g = 1 britt, E ye-Both, q2hr, PRN: Dry Eyes ocular lubricant(ocular lubr icant ophthalmic solution) 1 drops 03/20/2018 03/24/2018 Eye- Both 1 drops, Eye-Bot h, q1hr, PRN: Dry Eyes lidocaine topical(Lidoderm 5% topical film ) 1 patches 03/20/2018 03/24/2018 TransDermal 1 patches, Trans Dermal, Daily fentaNYL(fentaNYL) 1 mL 03/20/2018 03/20/2018 IV Push 50 mcg 50 mcg = 1 mL, IV Push, q10min, PRN: Pain Moderate (4-6) LORazepam(LORazepam) 0.5 mL 03/20/2018 03/23/2018 IV Push 1 mg 1 mg = 0.5 mL, IV Push, TID, PRN: Anxiety fentaNYL(fentaNYL) 0.5 mL 03/20/2018 03/21/2018 IV Push 25 mcg 25 mcg = 0.5 mL, IV Push, TID, PRN: Pain - Breakthrough magnesium oxide(magnesium oxide) 1 tabs 03/21/2018 03/23/2018 Oral 400 mg 400 mg = 1 tabs, Oral, TID furosemide(Lasix) 2 mL 03/21/2018 03/21/2018 IV Push 20 mg 20 mg = 2 mL, IV Push, Once potassium chloride(potassium chloride 20 mEq oral tablet, extended release) 1 tabs 03/21/2018 03/21/2018 Oral 20 mEq 20 mEq = 1 tabs, Oral, Once ipratropium-albuterol(DuoNeb 0.5 mg-2.5 mg/3 mL inhalation solution) 3 mL 03/21/2018 03/24/2018 NE B 3 mL, NEB, q4hr- [place] guaiFENesin(guaiFENesin 200 mg oral tablet ) 2 tabs 03/21/2018 03/24/2018 Oral 400 mg 400 mg = 2 tabs, Oral, q4hr, PRN: Cough/ Congestion nicotine(nicotine 21 mg/24 h r transdermal film, extended release) 1 patches 03/22/2018 03/24/2018 TransDermal 1 patches, Trans Dermal, Daily furosemide(Lasix) 4 mL 03/22/2018 03/22/2018 IV Push 40 mg 40 mg = 4 mL, IV Push, Once potassium chloride(potassium chloride 20 mEq oral tablet, extended release) 2 tabs 03/22/2018 03/22/2018 Oral 40 mEq 40 mEq = 2 tabs, Oral, Once naloxegol(Movantik) 1 tabs 03/22/2018 03/24/2018 Oral 25 mg 25 mg = 1 tabs, Oral, qAM polyethylene glycol 3350(MiraLax) 03/22/2018 Oral 17 g 17 g, Oral, Daily, 0 Refill(s) fluticasone(Flovent HFA 110 mcg/inh inhalation aerosol) 2 puffs 03/22/2018 Inhalation 2 puffs, Inhalation, Daily, 12 g, 0 Refill(s) naloxegol(Movantik 25 mg oral tablet) 1 tabs 03/22/2018 Oral 25 mg 25 mg = 1 tabs, Oral, qAM, 0 Refill(s) ramelteon(Rozerem 8 mg oral tablet) 1 tabs 03/22/2018 Oral 8 mg 8 mg = 1 tabs, Oral, Bedtime (once a day), 0 Refill(s) ondansetron(ondansetron 4 mg oral tablet) 1 tabs 03/22/2018 Oral 4 mg 4 mg = 1 tabs, Oral, q6hr, PRN: Nausea, 0 Refill(s) LORazepam(LORazepam 0.5 mg oral tablet) 1 tabs 03/22/2018 Oral 0.5 mg 0.5 mg = 1 tabs, Oral, TID, PRN: as needed for anxiety, 0 Refill(s) LORazepam(LORazepam) 1 tabs 03/23/2018 03/24/2018 Oral 0.5 mg 0.5 mg = 1 tabs, Oral, TID, PRN: Anxiety acetaminophen(acetaminophen) 2 tabs 03/23/2018 03/24/2018 Oral 650 mg 650 mg = 2 tabs, Oral, q6hr (scheduled) furosemide(Lasix) 4 mL 03/23/2018 03/23/2018 IV Push 40 mg 40 mg = 4 mL, IV Push, Once potassium chloride(potassium chloride 20 mEq oral tablet, extended release) 2 tabs 03/23/2018 03/23/2018 Oral 40 mEq 40 mEq = 2 tabs, Oral, Once oxyCODONE(oxyCODONE 5 mg oral capsule) 1 caps 03/24/2018 03/31/2018 Oral 5 mg 5 mg = 1 caps, Oral, q8hr, PRN: Pain - Breakthrough, 20 caps, 0 Refill(s) Sodium Chloride 0.9% 1,000 mL Soln-IV 05/03/2019 [...] Hi MD 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oris Chago Hi MD 06/09/2016 Chago Hi MD 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, not elsewhere classified Chago Hi MD 06/17/2016 Chago Hi MD R2 2.2 Localized swelling, mass and lump, trunk NoldLukas 06/17/2016 Chago Hi MD R2 2.2 Localized swelling, mass and lump, trunk Sergei De León 06/19/2016 Amanda Deanna Final C54 .1 Malignant neoplasm of endometrium 06/19/2016 Amanda Deanna Final E03 .9 Hypothyroidism, unspecified 06/19/2016 Amanda Deanna Final E11 .9 Type 2 diabetes mellitus without complications 06/19/2016 Amanda Deanna Final F14.90 Cocaine use, unspecified, uncomplicated 06/19/2016 Amanda Judith Final F15.10 Other stimulant abuse, uncomplicated 06/19/2016 Amanda Judith Final F17.210 Nicotine dependence, cigarettes, uncomplicated 06/19/2016 Vasiliy, Judith Final F31 .9 Bipolar disorder, unspecified 06/19/2016 Vasiliy, Judith Final G40.909 Epilepsy, unspecified, not intractable, without status epilepticus 06/19/2016 Vasilyi, Judith Final I10 Essential (primary) hypertension 06/19/2016 Vasiliy, Judith Final 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 06/19/2016 Amanda Judith Final I25 .2 Old myocardial infarction 06/19/2016 Amanda Judith Final J39 .8 Other specified diseases of upper respiratory tract 06/19/2016 Amadna Judith Final J44 .9 Chronic obstructive pulmonary disease, unspecified 06/19/2016 Amanda Judith Final K21 .9 Gastro-esophageal reflux disease without esophagitis 06/19/2016 Vasiliy, Judith Final 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 06/19/2016 Amanda Judith Final R04 .2 Hemoptysis 06/19/2016 Vasiliy, Judith Final R06.02 Shortness of breath 06/19/2016 Amanda Deanna Admitting R22.1 Localized swelling, mass and lump, neck 06/19/2016 Vasiliy,, Judith Final R59 .0 Localized enlarged lymph nodes 06/19/2016 Vasiliy, Judith Final E32 .0 Persistent hyperplasia of thymus 07/02/2016 Chago Hi MD E 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 Chago Hi MD 07/02/2016 Chago Hi MD 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 Joseph Rebollar DO 08/09/2016 Chago Hi MD E Z0 9 Encounter for follow-up examination after completed treatment for conditions other than malignant neoplasm Chago Hi MD 11/04/2016 Chago Hi MD 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 Chago Hi MD 11/04/2016 Chago Hi MD 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 Joseph Rebollar DO A 11/04/2016 Chago Hi MD E1 1.9 Type 2 diabetes mellitus without complications Chago Hi MD 11/04/2016 Chago Hi MD F17.210 Nicotine dependence, cigarettes, uncomplicated Chago Hi MD 11/04/2016 Chago Hi MD 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oris Chago Hi [...] mass and lump, trunk Sarthak, Sergei R 11/04/2016 Chago Hi MD E3 2.8 Other [...] Hi MD 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oris Chago Hi MD 01/09/2017 Chago Hi MD 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, not elsewhere classified Chago Hi MD 06/10/2017 BENJAMIN VILLA F419 Anxiety disorder, unspecified 06/10/2017 BENJAMIN VILLA I86273 Pain in right hip 06/10/2017 ALLEN, BENJAMIN Gutierrez S [id number] Pain in left toe(s) 06/10/2017 ALLENBENJAMIN P F419 Anxiety disorder, unspecified 06/10/2017 ALLENBENJAMIN S D57110 Pain in right hip 06/10/2017 ALLENBENJAMIN S J27685 Pain in left toe(s) 06/10/2017 ALLENBENJAMIN P F419 Anxiety disorder, unspecified 06/10/2017 ALLEN, BENJAMIN Gutierrez S E33207 Pain in right hip 06/10/2017 ALLEN, BENJAMIN Gutierrez S Y11945 Pain in left toe(s) 12/05/2017 ESTELA ALVINA P J020 Streptococcal pharyngitis 01/29/2018 JERRICA VELAZQUEZ P K047 Periapical abscess without sinus 01/29/2018 VELAZQUEZRODNEYA S I68286M Strain of other muscles, fascia and tendons at shoulder and upper arm level, left arm, initial encounter 01/29/2018 VELAZQUEZRODNEYA S [id number] Overexertion from strenuous movement or load, initial encounter 01/29/2018 VELAZQUEZ JERRICA S [id number] Unspecified place in single-family (private) house as the place of occurrence of the external cause 01/29/2018 VELAZQUEZRODNEYA S Y998 Other external cause status 02/19/2018 Chago Hi MD E1 1.9 Type 2 diabetes mellitus without complications Chago Hi MD 02/19/2018 Chago Hi MD E66.01 Morbid (severe) obesity due to excess calories Chago Hi MD 02/19/2018 Chago Hi MD F17.210 Nicotine dependence, cigarettes, uncomplicated Chago Hi MD 02/19/2018 Chago Hi MD I1 0 Essential (primary) hypertension Chago Hi MD 02/19/2018 Chago Hi MD R06.09 Other forms of dyspnea Chago Hi MD 02/19/2018 Chago Hi MD R07.89 Other chest pain Chago Hi MD 02/19/2018 Chago Hi MD R2 2.2 Localized swelling, mass and lump, trunk [place], Chago E 02/19/2018 Chago Hi MD R9 1.8 Other nonspecific abnormal finding of lung field [place], Chago Polo 02/19/2018 Chago Hi MD Z68.37 Body mass index (BMI) 37.0-37.9, adult Kelli black MD, Chago E 03/03/2018 Chago Hi MD E66.01 Morbid (severe) obesity due to excess calories Chago Hi MD E 03/03/2018 Chago Hi MD F17.210 Nicotine dependence, cigarettes, uncomplicated Chago Hi MD 03/03/2018 Chago Hi MD I1 0 Essential (primary) hypertension [place], Chago Polo 03/03/2018 Chago Hi MD 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oris Chago Hi MD 03/03/2018 Chago Hi MD I70.213 Atherosclerosis of [place] arteries of ex tremities with intermittent claudication, bilateral legs Chago Hi MD 03/03/2018 Chago Hi MD R06.09 Other forms of dyspnea Chago Hi MD 03/03/2018 Chago Hi MD R2 2.0 Localized swelling, mass and lump, head Chago Hi MD E 03/03/2018 Chago Hi MD R2 2.2 Localized swelling, mass and lump, trunk [place], Chago E 03/03/2018 Chago Hi MD R22.43 Localized swelling, mass and lump, lower limb, bilater al [place], Chago E 03/03/2018 Chago Hi MD Z68.38 Body mass index (BMI) 38.0-38.9, adult Kelli black MD, Chago E 03/04/2018 Chago Hi MD E66.01 Morbid (severe) obesity due to excess calories [place], Chago E 03/04/2018 Chago Hi MD F17.210 Nicotine dependence, cigarettes, uncomplicated [place] Hi MD E 03/04/2018 Chago Hi MD E I1 0 Essential (primary) hypertension Chago Hi MD E 03/04/2018 Chago Hi MD 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oris [place], Chago E 03/04/2018 Chago Hi MD I70.213 Atherosclerosis of [place] arteries of ex tremities with intermittent claudication, bilateral legs Chago Hi MD 03/04/2018 Chago Hi MD E R06.09 Other forms of dyspnea Chago Hi MD 03/04/2018 Chago Hi MD R2 2.0 Localized swelling, mass and lump, head Chago Hi MD E 03/04/2018 Chago Hi MD R2 2.2 Localized swelling, mass and lump, trunk Chago Hi MD E 03/04/2018 Chago Hi MD R22.43 Localized swelling, mass and lump, lower limb, bilater al Chago Hi MD E 03/04/2018 Chago Hi MD E Z68.38 Body mass index (BMI) 38.0-38.9, adult Chago Angulo MD E 03/27/2018 Hi Brett Final E03.9 Hypothyroidism, unspecified 03/27/2018 Hi Brett Final E66.01 Morbid (severe) obesity due to excess calories 03/27/2018 Hi Brett Final F17.210 Nicotine dependence, cigarettes, uncomplicated 03/27/2018 Hi Brett Final F31.9 Bipolar disorder, unspecified 03/27/2018 Hi Brett Final F41.9 Anxiety disorder, unspecified 03/27/2018 Hi Brett Final I1 0 Essential (primary) hypertension 03/27/2018 Hi Brett Final J96.01 Acute respiratory failure with hypoxia 03/27/2018 Hi Brett Final J98.11 Atelectasis 03/27/2018 Hi Brett Admitting J98.59 Other diseases of mediastinum, not elsewhere classifie d 03/27/2018 Hi Brett Final Z68.38 Body mass index (BMI) 38.0-38.9, adult 03/27/2018 Hi Brett Final J98.59 Other diseases of mediastinum, not elsewhere classifie d 04/05/2018 BELA PRADHAN P M940 Chondrocostal junction syndrome [Tietze] 04/05/2018 BELA PRADHAN S R0789 Other chest pain 04/13/2018 BENJAMIN VILLA P R0789 Other chest pain 04/13/2018 BENJAMIN VILLA S R112 Nausea with vomiting, unspecified 04/14/2018 Chago Hi MD E Z0 9 Encounter for follow-up examination after completed treatment for conditions other than malignant neoplasm Chago Hi MD 07/02/2018 Final 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 07/02/2018 Final F17.218 Nicotine dependence, cigarettes, with other nicotine-induced disorders 07/02/2018 Final J44.9 C hronic obstructive pulmonary disease, unspecified 07/02/2018 Final M79.7 F ibromyalgia 07/02/2018 Reason For Visit S46.01 2A Strain of muscle(s) and tendon(s) of the rotator cuff of left shoulder, initial encounter 07/02/2018 Final X50.9XXA Other and unspecified overexertion or strenuous movements or postures, initial encounter 07/02/2018 Final Y[address] in single-family (private) house as the place of occurrence of the external cause 07/02/2018 Final Z92.3 P ersonal history of irradiation 07/09/2018 Final 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 07/09/2018 Final G44.209 Tension-type headache, unspecified, not intractable 07/09/2018 Final M25.512 Pain in left shoulder 07/09/2018 Final M54.2 C ervicalgia 07/09/2018 Reason For Visit R42 Dizziness and giddiness 07/13/2018 Final 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 07/13/2018 Final F41.9 A nxiety disorder, unspecified 07/13/2018 Final G89.29 Other chronic pain 07/13/2018 Final J44.9 C hronic obstructive pulmonary disease, unspecified 07/13/2018 Final M25.512 Pain in left shoulder 07/13/2018 Final 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, thoracic region 07/13/2018 Final M54.2 C ervicalgia 07/13/2018 Reason For Visit M79.7 Fibromyalgia 07/13/2018 Final Z92.3 P ersonal history of irradiation 07/14/2018 BENJAMIN VILLA [id number] Contusion of right ring finger without damage to nail, initial encounter 07/14/2018 BENJAMIN VILLA [id number] Striking against other stationary object, initial encounter 07/14/2018 BENJAMIN VILLA Y[address] or not applicable 07/14/2018 BENJAMIN VILLA Y939 Activity, unspecified 07/14/2018 BENJAMIN VILLA Y998 Other external cause status 08/05/2018 CHAGO HI J90 PLEURAL EFFUSION, NOT ELSEWHERE CLASSIFIED [facility] HI 08/05/2018 [facility] HI J98.4 OTHER DISORDERS OF LUNG [place] HI 08/05/2018 [place] HI P Z09 ENCOUNTER FOR FOLLOW-UP EXAMINATION AFTER COMPLETED TREATMENT FOR CONDITIONS OTHER THAN MALIGNANT NEOPLASM [facility] HI 08/05/2018 [facility] HI Z98.890 OTHER SPECIFIED POSTPROCEDURAL STATES [facility] HI 08/05/2018 Final G43.909 Migraine, unspecified, not intractable, without status migrainosus 08/05/2018 Final I10 Ess ential (primary) hypertension 08/05/2018 Reason For Visit J44.9 Chronic obstructive pulmonary disease, unspecified 08/05/2018 Final L93.0 D iscoid lupus erythematosus 08/05/2018 Final M25.512 Pain in left shoulder 08/05/2018 Final M35.00 Sicca syndrome, unspecified 08/05/2018 Final M54.6 P ain in thoracic spine 08/05/2018 Final M79.7 F ibromyalgia 08/05/2018 Final Z72.0 T obacco use 09/01/2018 Final F41.9 A nxiety disorder, unspecified 09/01/2018 Final I10 Ess ential (primary) hypertension 09/01/2018 Reason For Visit J44.9 Chronic obstructive pulmonary disease, unspecified 09/01/2018 Final M25.512 Pain in left shoulder 09/01/2018 Final M35.00 Sicca syndrome, unspecified 09/01/2018 Final M54.2 C ervicalgia 09/01/2018 Final Z72.0 T obacco use 09/15/2018 Reason For Visit M79.65 1 Pain in right thigh 09/24/2018 Reason For Visit 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 09/24/2018 Final F17.210 Nicotine dependence, cigarettes, uncomplicated 09/24/2018 Final G89.29 Other chronic pain 09/24/2018 Final I10 Ess ential (primary) hypertension 09/24/2018 Final M25.512 Pain in left shoulder 10/01/2018 Reason For Visit F41.9 Anxiety disorder, unspecified 10/01/2018 Final I10 Ess ential (primary) hypertension 10/01/2018 Final J44.9 C hronic obstructive pulmonary disease, unspecified 10/01/2018 Final M25.512 Pain in left shoulder 10/01/2018 Final M35.00 Sicca syndrome, unspecified 10/01/2018 Final M54.2 C ervicalgia 10/01/2018 Final M54.6 P ain in thoracic spine 10/01/2018 Final M79.7 F ibromyalgia 10/01/2018 Final Z72.0 T obacco use 10/28/2018 Reason For Visit 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 10/28/2018 Final 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 10/28/2018 Final F41.9 A nxiety disorder, unspecified 10/28/2018 Final I10 Ess ential (primary) hypertension 10/28/2018 Final J44.9 C hronic obstructive pulmonary disease, unspecified 10/28/2018 Final L93.0 D iscoid lupus erythematosus 10/28/2018 Final M15.0 P rimary generalized (osteo)arthritis 10/28/2018 Final M35.00 Sicca syndrome, unspecified 10/28/2018 Final M54.2 C ervicalgia 10/28/2018 Final M79.7 F ibromyalgia 10/28/2018 Final Z92.3 P ersonal history of irradiation 11/02/2018 W G89.29 Oth er chronic pain 11/02/2018 W M25.512 Ch ronic left shoulder pain 11/02/2018 W M54.2 Neck pain 11/03/2018 Final 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 11/03/2018 Final F17.218 Nicotine dependence, cigarettes, with other nicotine-induced disorders 11/03/2018 Final G89.29 Other chronic pain 11/03/2018 Final J44.9 C hronic obstructive pulmonary disease, unspecified 11/03/2018 Final M54.2 C ervicalgia 11/03/2018 Final R13.10 Dysphagia, unspecified 11/03/2018 Reason For Visit R22.1 Localized swelling, mass and lump, neck 11/03/2018 Final Z79.891 superintendent terminal (current) use of opiate analgesic 12/17/2018 Final 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 12/17/2018 Final G43.909 Migraine, unspecified, not intractable, without status migrainosus 12/17/2018 Final G90.50 Complex regional pain syndrome I, unspecified 12/17/2018 Final I10 Ess ential (primary) hypertension 12/17/2018 Reason For Visit J44.9 Chronic obstructive pulmonary disease, unspecified 12/17/2018 Final K59.09 Other constipation 12/17/2018 Final L93.0 D iscoid lupus erythematosus 12/17/2018 Final M35.00 Sicca syndrome, unspecified 12/17/2018 Final M54.9 D orsalgia, unspecified 12/17/2018 Final M79.7 F ibromyalgia 12/17/2018 Final R56.9 U nspecified convulsions 12/30/2018 Final 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 12/30/2018 Final F41.9 A nxiety disorder, unspecified 12/30/2018 Final G43.909 Migraine, unspecified, not intractable, without status migrainosus 12/30/2018 Final I10 Ess ential (primary) hypertension 12/30/2018 Reason For Visit J44.9 Chronic obstructive pulmonary disease, unspecified 12/30/2018 Final L93.0 D iscoid lupus erythematosus 12/30/2018 Final M15.0 P rimary generalized (osteo)arthritis 12/30/2018 Final M35.00 Sicca syndrome, unspecified 12/30/2018 Final M54.2 C ervicalgia 12/30/2018 Final M79.7 F ibromyalgia 12/30/2018 Final R56.9 U nspecified convulsions 12/31/2018 Final 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 12/31/2018 Final F41.9 A nxiety disorder, unspecified 12/31/2018 Final J44.9 C hronic obstructive pulmonary disease, unspecified 12/31/2018 Reason For Visit M79.7 Fibromyalgia 12/31/2018 Final R10.11 Right upper quadrant pain 12/31/2018 Final R10.12 Left upper quadrant pain 12/31/2018 Final R10.13 Epigastric pain 02/01/2019 Final 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 02/01/2019 Reason For Visit F41.9 Anxiety disorder, unspecified 02/01/2019 Final G43.909 Migraine, unspecified, not intractable, without status migrainosus 02/01/2019 Final G90.50 Complex regional pain syndrome I, unspecified 02/01/2019 Final I10 Ess ential (primary) hypertension 02/01/2019 Final J44.9 C hronic obstructive pulmonary disease, unspecified 02/01/2019 Final K59.09 Other constipation 02/01/2019 Final M54.2 C ervicalgia 02/01/2019 Final M79.7 F ibromyalgia 02/01/2019 Final R56.9 U nspecified convulsions 02/01/2019 Final Z92.3 P ersonal history of irradiation 02/12/2019 Final 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 02/12/2019 Final F17.218 Nicotine dependence, cigarettes, with other nicotine-induced disorders 02/12/2019 Final I10 Ess ential (primary) hypertension 02/12/2019 Final J44.9 C hronic obstructive pulmonary disease, unspecified 02/12/2019 Final K59.09 Other constipation 02/12/2019 Reason For Visit M25.51 2 Pain in left shoulder 02/12/2019 Final M54.2 C ervicalgia 02/12/2019 Final M79.7 F ibromyalgia 02/12/2019 Final R20.0 A nesthesia of skin 02/20/2019 Reason For Visit R07.9 Chest pain, unspecified 02/20/2019 Final R20.0 A nesthesia of skin 02/20/2019 Final Z86.79 Personal history of other diseases of the circulatory system 02/20/2019 Reason For Visit R07.9 Chest pain, unspecified 02/20/2019 Final R20.0 A nesthesia of skin 02/20/2019 Final Z86.79 Personal history of other diseases of the circulatory system 02/23/2019 Reason For Visit R00.0 Tachycardia, unspecified 02/23/2019 Reason For Visit E06.3 Autoimmune thyroiditis 02/23/2019 Final R00.2 P alpitations 02/23/2019 Final J44.9 C hronic obstructive pulmonary disease, unspecified 02/23/2019 Final M79.7 F ibromyalgia 02/23/2019 Reason For Visit R00.2 Palpitations 02/23/2019 Final Z98.890 Other specified postprocedural states 02/26/2019 Final 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 02/26/2019 Reason For Visit F41.9 Anxiety disorder, unspecified 02/26/2019 Final I10 Ess ential (primary) hypertension 02/26/2019 Final J44.9 C hronic obstructive pulmonary disease, unspecified 02/26/2019 Final K59.09 Other constipation 02/26/2019 Final L93.0 D iscoid lupus erythematosus 02/26/2019 Final M15.0 P rimary generalized (osteo)arthritis 02/26/2019 Final M35.00 Sicca syndrome, unspecified 02/26/2019 Final M54.9 D orsalgia, unspecified 02/26/2019 Final M79.7 F ibromyalgia 02/26/2019 Final R56.9 U nspecified convulsions 03/01/2019 Reason For Visit K04.7 Periapical abscess without sinus 03/01/2019 Reason For Visit K04.7 Periapical abscess without sinus 03/30/2019 Reason For Visit G89.29 Other chronic pain 03/30/2019 Final L65.9 N onscarring hair loss, unspecified 03/30/2019 Final R00.2 P alpitations 03/30/2019 Final Z79.891 superintendent terminal (current) use of opiate analgesic 04/19/2019 Final F41.9 A nxiety disorder, unspecified 04/19/2019 Reason For Visit L73.2 Hidradenitis suppurativa 04/19/2019 Final R82.90 Unspecified abnormal findings in urine 04/29/2019 Final 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 04/29/2019 Reason For Visit F41.9 Anxiety disorder, unspecified 04/29/2019 Final G43.909 Migraine, unspecified, not intractable, without status migrainosus 04/29/2019 Final G90.50 Complex regional pain syndrome I, unspecified 04/29/2019 Final I10 Ess ential (primary) hypertension 04/29/2019 Final J44.9 C hronic obstructive pulmonary disease, unspecified 04/29/2019 Final K59.09 Other constipation 04/29/2019 Final L93.0 D iscoid lupus erythematosus 04/29/2019 Final M15.0 P rimary generalized (osteo)arthritis 04/29/2019 Final M54.2 C ervicalgia 04/29/2019 Final M79.7 F ibromyalgia 05/03/2019 KINDRA VARMA R00.0 Tachycardia, unspecified 05/03/2019 KINDRA VARMA Reason For Visi t R07.9 Chest pain, unspecified 05/03/2019 KINDRA VARMA R55 Syncope and collapse 05/25/2019 Final L73.9 F ollicular disorder, unspecified 05/25/2019 Final M79.671 Pain in right foot 05/25/2019 Reason For Visit R06.02 Shortness of breath 05/25/2019 Final R07.9 C hest pain, unspecified 05/25/2019 Reason For Visit S99.92 1A Unspecified injury of right foot, initial encounter 05/25/2019 Final W20.8XXA Other cause of strike by thrown, projected or falling object, initial encounter 07/01/2019 Reason For Visit R10.32 Left lower quadrant pain 07/01/2019 Final R11.2 N ausea with vomiting, unspecified 07/01/2019 Final R56.9 U nspecified convulsions 07/01/2019 Reason For Visit R10.32 Left lower quadrant pain 07/01/2019 Final R11.2 N ausea with vomiting, unspecified 07/01/2019 Final R56.9 U nspecified convulsions 07/02/2019 Final G89.4 C hronic pain syndrome 07/02/2019 Reason For Visit R10.12 Left upper quadrant pain 07/02/2019 Final R10.32 Left lower quadrant pain 07/02/2019 Final Z79.891 assisted (current) use of opiate analgesic 07/02/2019 Reason For Visit E03.9 Hypothyroidism, unspecified 07/02/2019 Final R10.12 Left upper quadrant pain 08/23/2019 Final 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 08/23/2019 Final F41.9 A nxiety disorder, unspecified 08/23/2019 Final G89.29 Other chronic pain 08/23/2019 Final I10 Ess ential (primary) hypertension 08/23/2019 Reason For Visit I20.9 Angina pectoris, unspecified 08/23/2019 Final J44.9 C hronic obstructive pulmonary disease, unspecified 08/23/2019 Final M15.0 P rimary generalized (osteo)arthritis 08/23/2019 Final M35.00 Sicca syndrome, unspecified 08/23/2019 Final M54.9 D orsalgia, unspecified 08/23/2019 Final M79.7 F ibromyalgia 08/23/2019 Final R60.0 L ocalized edema 09/23/2019 Final 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 09/23/2019 Final F41.9 A nxiety disorder, unspecified 09/23/2019 Final G89.29 Other chronic pain 09/23/2019 Final I10 Ess ential (primary) hypertension 09/23/2019 Reason For Visit I20.9 Angina pectoris, unspecified 09/23/2019 Final J44.9 C hronic obstructive pulmonary disease, unspecified 09/23/2019 Final M15.0 P rimary generalized (osteo)arthritis 09/23/2019 Final M35.00 Sicca syndrome, unspecified 09/23/2019 Final M54.9 D orsalgia, unspecified 09/23/2019 Final M79.7 F ibromyalgia 09/23/2019 Final R60.0 L ocalized edema 09/27/2019 CHUCK FELIX APRN Ot B97.89 OTH VIRAL AGENTS THE CAUSE OF DISEASE 09/27/2019 CHUCK FELIX APRN Ot E03 .9 HYPOTHYROIDISM, UNSPECIFIED 09/27/2019 CHUCK FELIX APRN Ot F17.210 NICOTINE DEPENDENCE, CIGARETTES, UNCOMPL 09/27/2019 CHUCK FELIX APRN Ot F32 .9 MAJOR DEPRESSIVE DISORDER, SINGLE EPISOD 09/27/2019 CHUCK FELIX APRN Ot F41 .9 ANXIETY DISORDER, UNSPECIFIED 09/27/2019 CHUCK FELIX APRN Ot G40.909 EPILEPSY, UNSP, NOT INTRACTABLE, WITHOUT 09/27/2019 CHUCK FELIX APRN Ot I10 ESSENTIAL (PRIMARY) HYPERTENSION 09/27/2019 CHUCK FELIX APRN Ot J20 .8 ACUTE BRONCHITIS DUE TO OTHER SPECIFIED 09/27/2019 ISIDRO, CHUCK Hsu APRN Ot J44 .9 CHRONIC OBSTRUCTIVE PULMONARY DISEASE, U 09/27/2019 CHUCK FELIX APRN Ot K58 .9 IRRITABLE BOWEL SYNDROME WITHOUT DIARRHE 09/27/2019 CHUCK FELIX APRN Ot M06 .9 RHEUMATOID ARTHRITIS, UNSPECIFIED 09/27/2019 CHUCK FELIX APRN Ot M79 .7 FIBROMYALGIA 09/27/2019 CHUCK FELIX APRN Ot R07 .9 CHEST [...] APRN Ot Z88 .8 ALLERGY STATUS TO OT DRUG/MEDS/BIOL SUB 09/27/2019 CHUCK FELIX APRN Ot Z90.49 ACQUIRED ABSENCE OF OTHER SPECIFIED PART 09/27/2019 CHUCK FELIX APRN Ot Z90.710 ACQUIRED ABSENCE OF BOTH CERVIX AND UTER 09/27/2019 CHUCK FELIX APRN Ot Z91.041 RADIOGRAPHIC DYE ALLERGY STATUS 09/27/2019 CHUCK FELIX APRN Ot Z98.51 TUBAL LIGATION STATUS 10/04/2019 CHUCK FELIX APRN Ot B97.89 OT VIRAL AGENTS THE CAUSE OF DISEASE 10/04/2019 [...] DOZIER Ot 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 10/12/2019 KINDRA DOZIER Ot 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 10/13/2019 ARIN SALDAÑA MD Ot N20.0 CALCULUS OF KIDNEY 10/13/2019 ARIN SALDAÑA MD Ot N20.0 CALCULUS OF KIDNEY 11/01/2019 ARIN SALDAÑA MD Ot N20.0 CALCULUS OF KIDNEY 11/14/2019 Brenda [...] DOZIER Ot 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 11/18/2019 Brenda LAGUNA MD [...] E66 .9 OBESITY, UNSPECIFIED 11/18/2019 Brenda LAGUNA MD Ot F17.210 NICOTINE DEPENDENCE, CIGARETTES, UNCOMPL 11/18/2019 Brenda LAGUNA MD Ot G93 .2 BENIGN INTRACRANIAL HYPERTENSION 11/18/2019 Brenda LAGUNA MD, Ot I25.10 ATHSCL HEART DISEASE OF [place] CORONARY 11/18/2019 Brenda LAGUNA MD, Ot I47 .1 SUPRAVENTRICULAR TACHYCARDIA 11/18/2019 Brenda LAGUNA MD Ot 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 11/18/2019 Brenda LAGUNA MD Ot R55 SYNCOPE AND COLLAPSE 11/18/2019 Brenda LAGUNA MD Ot Z68.41 BODY MASS INDEX (BMI) 40.0-44.9, ADULT 11/18/2019 Brenda LAGUNA MD Ot Z79.899 OTHER SLIP MIXER (CURRENT) DRUG THERAPY 11/18/2019 Brenda LAGUNA MD, Ot Z88 .6 ALLERGY STATUS TO ANALGESIC AGENT STATUS 11/18/2019 Brenda LAGUNA MD, Ot Z88 .8 ALLERGY STATUS TO OTH DRUG/MEDS/BIOL SUB 11/18/2019 Brenda LAGUNA MD Ot Z91.041 RADIOGRAPHIC DYE ALLERGY STATUS 11/28/2019 Brenda LAGUNA MD Ot E66 .9 OBESITY, UNSPECIFIED 11/28/2019 Brenda LAGUNA MD Ot F17.210 NICOTINE DEPENDENCE, CIGARETTES, UNCOMPL 11/28/2019 Brenda LAGUNA MD Ot G93 .2 BENIGN INTRACRANIAL HYPERTENSION 11/28/2019 Brenda LAGUNA MD Ot I25.10 ATHSCL HEART DISEASE OF [place] CORONARY 11/28/2019 Brenda LAGUNA MD Ot I47 .1 SUPRAVENTRICULAR TACHYCARDIA 11/28/2019 Brenda LAGUNA MD Ot 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 11/28/2019 Brenda LAGUNA MD Ot R55 SYNCOPE AND COLLAPSE 11/28/2019 Brenda LAGUNA MD Ot Z68.41 BODY MASS INDEX (BMI) 40.0-44.9, ADULT 11/28/2019 Brenda LAGUNA MD Ot Z79.899 OTHER SLIP MIXER (CURRENT) DRUG THERAPY 11/28/2019 Brenda LAGUNA MD Ot Z88 .6 ALLERGY STATUS TO ANALGESIC AGENT STATUS 11/28/2019 Brenda LAGUNA MD Ot Z88 .8 ALLERGY [...] MD Ot I25.10 ATHSCL HEART DISEASE OF [place] CORONARY 12/10/2019 Brenda LAGUNA MD Ot I47 .1 SUPRAVENTRICULAR TACHYCARDIA 12/10/2019 Brenda LAGUNA MD Ot 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 12/10/2019 Brenda LAGUNA MD Ot R55 SYNCOPE AND COLLAPSE 12/10/2019 Brenda LAGUNA MD Ot Z68.41 BODY MASS INDEX (BMI) 40.0-44.9, ADULT 12/10/2019 Brenda LAGUNA MD Ot Z79.899 OTHER SLIP MIXER (CURRENT) DRUG THERAPY 12/10/2019 Brenda LAGUNA MD, Ot Z88 .6 ALLERGY STATUS TO ANALGESIC AGENT STATUS 12/10/2019 Brenda LAGUNA MD Ot Z88 .8 ALLERGY STATUS TO OTH DRUG/MEDS/BIOL SUB 12/10/2019 Brenda LAGUNA MD Ot Z91.041 RADIOGRAPHIC DYE ALLERGY STATUS 12/10/2019 DOZIERKINDRA Ot I25.10 ATHSCL HEART DISEASE OF [place] CORONARY 12/10/2019 DOZIERKINDRA CFCHRISTI Ot R22.1 LOCALIZED SWELLING, MASS AND LUMP, NECK 01/04/2020 DOZIERKINDRA CFNP Ot 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 01/04/2020 JASE BARKSDALE, Brenda BRAVO Ot E66.01 MORBID (SEVERE) OBESITY DUE TO EXCESS CA 01/04/2020 JASE BARKSDALE, Brenda BRAVO Ot I10 ESSENTIAL (PRIMARY) HYPERTENSION 01/04/2020 Brenda LAGUNA MD Ot I73 .9 PERIPHERAL VASCULAR DISEASE, UNSPECIFIED 01/04/2020 Brenda LAGUNA MD Ot R07 .2 PRECORDIAL PAIN 01/04/2020 Brenda LAGUNA MD Ot Z72 .0 TOBACCO USE 01/04/2020 PIPER BARKSDALE, ARIN Hamilton Ot N20.0 CALCULUS OF KIDNEY 01/04/2020 DOZIERKINDRANP Ot I25.10 ATHSCL HEART DISEASE OF [place] CORONARY 01/04/2020 DOZIERKINDRA HUSTON Ot R22.1 LOCALIZED SWELLING, MASS AND LUMP, NECK 01/04/2020 CHUCK FELIX APRN Ot E03 .9 HYPOTHYROIDISM, UNSPECIFIED 01/04/2020 CHUCK FELIX APRN Ot F17.210 NICOTINE DEPENDENCE, CIGARETTES, UNCOMPL 01/04/2020 CHUCK FELIX APRN Ot F32 .9 MAJOR DEPRESSIVE DISORDER, SINGLE EPISOD 01/04/2020 CHUCK FELIX APRN Ot F41 .9 ANXIETY DISORDER, UNSPECIFIED 01/04/2020 CHUCK FELIX APRN Ot G40.909 EPILEPSY, UNSP, NOT INTRACTABLE, WITHOUT 01/04/2020 CHUCK FELIX APRN Ot I25 .2 OLD MYOCARDIAL INFARCTION 01/04/2020 CHUCK FELIX APRN Ot I47 .1 SUPRAVENTRICULAR TACHYCARDIA 01/04/2020 CHUCK FELIX APRN Ot J44 .9 CHRONIC OBSTRUCTIVE PULMONARY DISEASE, U 01/04/2020 CHUCK FELIX APRN Ot K58 .9 IRRITABLE BOWEL SYNDROME WITHOUT DIARRHE 01/04/2020 CHUCK FELIX FIXED WING PILOT Ot L93 .0 DISCOID LUPUS ERYTHEMATOSUS 01/04/2020 FELIX, CHUCK Hsu FIXED WING PILOT Ot M06 .9 RHEUMATOID ARTHRITIS, UNSPECIFIED 01/04/2020 FELIX, CHUCK Hsu FIXED WING PILOT Ot M79 .7 FIBROMYALGIA 01/04/2020 FELIX, CHUCK Hsu FIXED WING PILOT Ot R07 .9 CHEST PAIN, UNSPECIFIED 01/05/2020 FELIX, CHUCK Hsu FIXED WING PILOT Ot E03 .9 HYPOTHYROIDISM, UNSPECIFIED 01/05/2020 FELIX, CHUCK Hsu FIXED WING PILOT Ot F17.210 NICOTINE DEPENDENCE, CIGARETTES, UNCOMPL 01/05/2020, CHUCK Hsu FIXED WING PILOT Ot F32 .9 MAJOR DEPRESSIVE DISORDER, SINGLE EPISOD 01/05/2020, CHUCK Hsu FIXED WING PILOT Ot F41 .9 ANXIETY DISORDER, UNSPECIFIED 01/05/2020FELIX, CHUCK Hsu FIXED WING PILOT Ot G40.909 EPILEPSY, UNSP, NOT INTRACTABLE, WITHOUT 01/05/2020 FELIX, CHUCK Hsu FIXED WING PILOT Ot I25 .2 OLD MYOCARDIAL INFARCTION 01/05/2020, CHUCK Hsu FIXED WING PILOT Ot I47 .1 SUPRAVENTRICULAR TACHYCARDIA 01/05/2020, CHUCK Hsu FIXED WING PILOT Ot J44 .9 CHRONIC OBSTRUCTIVE PULMONARY DISEASE, U 01/05/2020, CHUCK Hsu FIXED WING PILOT Ot K58 .9 IRRITABLE BOWEL SYNDROME WITHOUT DIARRHE 01/05/2020, CHUCK Hsu FIXED WING PILOT Ot L93 .0 DISCOID LUPUS ERYTHEMATOSUS 01/05/2020, CHUCK Hsu APRN Ot M06 .9 RHEUMATOID ARTHRITIS, UNSPECIFIED 01/05/2020, CHUCK Hsu FIXED WING PILOT Ot M79 .7 FIBROMYALGIA 01/05/2020, CHUCK Hsu FIXED WING PILOT Ot R07 .9 CHEST PAIN, UNSPECIFIED 01/10/2020 FELIX, CHUCK Hsu FIXED WING PILOT Ot E03 .9 HYPOTHYROIDISM, UNSPECIFIED 01/10/2020 FELIX, CHUCK Hsu FIXED WING PILOT Ot F17.210 NICOTINE DEPENDENCE, CIGARETTES, UNCOMPL 01/10/2020 FELIX, CHUCK Hsu FIXED WING PILOT Ot F32 .9 MAJOR DEPRESSIVE DISORDER, SINGLE EPISOD 01/10/2020 FELIX, CHUCK Hsu FIXED WING PILOT Ot F41 .9 ANXIETY DISORDER, UNSPECIFIED 01/10/2020 FELIX, CHUCK Hsu FIXED WING PILOT Ot G40.909 EPILEPSY, UNSP, NOT INTRACTABLE, WITHOUT 01/10/2020 FELIX, CHUCK Hsu FIXED WING PILOT Ot I25 .2 OLD MYOCARDIAL INFARCTION 01/10/2020 FELIX, CHUCK Hsu APRN Ot I47 .1 SUPRAVENTRICULAR TACHYCARDIA 01/10/2020 FELIX, CHUCK Hsu APRN Ot J44 .9 CHRONIC OBSTRUCTIVE PULMONARY DISEASE, U 01/10/2020 FELIX, CHUCK Hsu APRN Ot K58 .9 IRRITABLE BOWEL SYNDROME WITHOUT DIARRHE 01/10/2020 FELIX, CHUCK Hsu APRN Ot L93 .0 DISCOID LUPUS ERYTHEMATOSUS 01/10/2020, CHUCK Hsu APRN Ot M06 .9 RHEUMATOID ARTHRITIS, UNSPECIFIED 01/10/2020FELIX, CHUCK Hsu FIXED WING PILOT Ot M79 .7 FIBROMYALGIA 01/10/2020, CHUCK Hsu APRN Ot R07 .9 CHEST PAIN, UNSPECIFIED 02/23/2020, CHUCK Hsu APRN Ot E03 .9 HYPOTHYROIDISM, UNSPECIFIED 02/23/2020, CHUCK Hsu APRN Ot F17.210 NICOTINE DEPENDENCE, CIGARETTES, UNCOMPL 02/23/2020, CHUCK Hsu APRN Ot F32 .9 MAJOR DEPRESSIVE DISORDER, SINGLE EPISOD 02/23/2020, CHUCK Hsu APRN Ot F41 .9 ANXIETY DISORDER, UNSPECIFIED 02/23/2020FELIX, CHUCK Hsu APRN Ot G40.909 EPILEPSY, UNSP, NOT INTRACTABLE, WITHOUT 02/23/2020 FELIX, CHUCK Hsu APRN Ot I25 .2 OLD MYOCARDIAL INFARCTION 02/23/2020 FELIX, CHUCK Hsu APRN Ot I47 .1 SUPRAVENTRICULAR TACHYCARDIA 02/23/2020FELIX, CHUCK Hsu APRN Ot J44 .9 CHRONIC OBSTRUCTIVE PULMONARY DISEASE, U 02/23/2020, CHUCK Hsu APRN Ot K58 .9 IRRITABLE BOWEL SYNDROME WITHOUT DIARRHE 02/23/2020, CHUCK Hsu FIXED WING PILOT Ot L93 .0 DISCOID LUPUS ERYTHEMATOSUS 02/23/2020, CHUCK Hsu APRN Ot M06 .9 RHEUMATOID ARTHRITIS, UNSPECIFIED 02/23/2020, CHUCK Hsu APRN Ot M79 .7 FIBROMYALGIA 02/23/2020FELIX, CHUCK Hsu APRN Ot R07 .9 CHEST PAIN, UNSPECIFIED 02/23/2020 FELIX, CHUCK Hsu APRN Ot Z20.828 CONTACT W AND EXPOSURE TO OTH VIRAL COMM Procedures Code Description Performed By Per formed On [id number] botic Assisted Procedure of Head and Neck Region, Percutaneous Endoscopic 06/04/2016 12161 Init ial inpatient consultation for a new or established patient, which requires these three torres comp Chago Hi MD 06/09/2016 [id number] Subs equent hospital care per day for the evaluation and management of a patient which requires at Sergei Macias 06/17/2016 26589 Init ial inpatient consultation for a new or established patient, which requires these three torres comp Nold, Lukas Cid 06/17/2016 43922 Thor acoscopy, surgical; with excision of mediastinal cyst, tumor, or mass Chago Hi MD 07/02/2016 S2900 Surg ical techniques requiring use of robotic surgical system (list separately in addition to code Chago Velasco MD 07/02/2016 56147 Thor acoscopy, surgical; with excision of mediastinal cyst, tumor, or mass Joseph Rebollar DO 07/02/2016 [id number] Post operative follow-up visit, normally included in the surgical package, to indicate that an evalua Chago Hi MD 08/09/2016 S2900 Surg ical techniques requiring use of robotic surgical system (list separately in addition to code Chago Velasco MD 11/19/2016 47572 Thor acoscopy, surgical; with excision of mediastinal cyst, tumor, or mass Joseph Rebollar DO 11/19/2016 64539 Subs equent hospital care per day for the evaluation and management of a patient which requires at Sergei Macias 11/19/2016 32437 Init ial inpatient consultation for a new or established patient, which requires these three torres comp Nold, Lukas Cid 12/09/2016 81503 In ial hospital care, per day, for the evaluation and management of a patient which requires these Nold, Lukas Cid 12/11/2016 89141 Init ial hospital care, per day, for the evaluation and management of a patient which requires these Nold, Lukas Cid 12/25/2016 23775 Init ial inpatient consultation for a new or established patient, which requires these three torres comp Chago Hi MD 01/07/2017 15775 In ia hospital care, per day, for the evaluation and management of a patient which requires Chago Frazier MD 01/08/2017 30619 In ial hospital care, per day, for the evaluation and management of a patient which requires these Chago Hi MD 01/27/2017 41076 Offi ce or other outpatient visit for the evaluation and management of an established patient, which Chago Hi MD 02/18/2018 63475 Offi ce or other outpatient visit for the evaluation and management of an established patient, which Chago Hi MD 03/03/2018 [id number] Ex cision of Mediastinum, Open Approach, Diagnostic 03/20/20 18 [id number] Post operative follow-up visit, normally included in the surgical package, to indicate that an evalua hCago Hi MD 04/14/2018 49521 X-RA Y EXAM NECK SPINE 4/5VWS 11/02/2018 54020 X-RA Y EXAM OF SHOULDER 11/02/2018 Results Test Result Range CT NECK+CHEST WOW - 02/12/18 08:56 Document View Attached Image NRG CBC With Platelet No Differential - 02/21 06/09 06:15 HCT 45.1 % 37.0-47.0 HGB 14.6 g/dL 12.0-16.0 MCH 31.3 pg 27.0-32.0 MCHC 32.4 g/dL 32.0-36.0 MCV 96.6 fL 82.0-99.0 MPV 11.0 fL 9.4-12.4 Platelet Count 252 K/uL 150-400 RBC 4.67 10*6/uL 4.00-5.20 RDW 14.9 % 11.5-14.5 WBC 6.1 K/uL 4.8-10.8 Comprehensive Metabolic Panel (CMP) - 06:15 Albumin 4.0 g/dL 3.5-4.8 Alkaline Phosphatase 62 U/L 26-104 ALT (SGPT) 57 U/L 14-54 Anion Gap 8 mEq/L 3-20 AST (SGOT) 35 U/L 15-41 Bilirubin Total 0.3 mg/dL 0.2-1.2 BUN 15 mg/dL 4-20 Calcium 8.7 mg/dL 8.6-10.0 Chloride 108 mEq/L 99-109 CO2 22 mEq/L 22-32 Creatinine 0.77 mg/dL 0.44-1.03 Globulin 3.1 g/dL 1.9-4.3 Glucose 97 mg/dL 70-100 Potassium 4.0 mEq/L 3.6-5.1 Protein 7.1 g/dL 6.1-7.9 Sodium 138 mEq/L 136-144 eGFR - 03/20/18 06:15 eGFR >60 mL/min >60 Protime (INR) - 03/20/18 06:15 INR 1.0 NA 0.9-1.2 PTT - 03/20/18 06:15 PTT 34.1 seconds 25.0-35.0 Glucose NPT - 03/20/18 07:22 Glucose NPT 86 mg/dL 70-100 CBC With Platelet and Differential - 04:23 Absolute Basophils 0.01 10*3/uL 0.00-0.2 0 Absolute Eosinophils 0.03 10*3/uL 0.00-0 .50 Absolute Lymphocytes 2.51 10*3/uL 0.80-3 .30 Absolute Monocytes 1.13 10*3/uL 0.30-1.0 0 Absolute Neutrophils 7.77 10*3/uL 1.90-7 .00 Basophils 0 % 0-2 Eosinophils 0 % 0-4 HCT 43.4 % 37.0-47.0 HGB 14.1 g/dL 12.0-16.0 Immature Granulocytes 0.3 % 0.0-1.0 Lymphocytes 22 % 20-46 MCH 31.5 pg 27.0-32.0 MCHC 32.5 g/dL 32.0-36.0 MCV 96.9 fL 82.0-99.0 Monocytes 10 % 4-11 MPV 10.9 fL 9.4-12.4 Neutrophils 68 % 51-75 Nucleated RBC Automated 0.0 /100 WBC Platelet Count 238 K/uL 150-400 RBC 4.48 10*6/uL 4.00-5.20 RDW 14.8 % 11.5-14.5 WBC 11.5 K/uL 4.8-10.8 Magnesium - 03/21/18 04:23 Magnesium 1.7 mg/dL 1.8-2.5 Basic Metabolic Panel (BMP) - 03/21/18 0 4:23 Anion Gap 7 mEq/L 3-20 BUN 9 mg/dL 4-20 Calcium 8.3 mg/dL 8.6-10.0 Chloride 105 mEq/L 99-109 CO2 22 mEq/L 22-32 Creatinine 0.75 mg/dL 0.44-1.03 Glucose 127 mg/dL 70-100 Potassium 4.1 mEq/L 3.6-5.1 Sodium 134 mEq/L 136-144 eGFR - 03/21/18 04:23 eGFR >60 mL/min >60 Calcium Ionized - 03/21/18 04:23 Calcium Ionized 1.21 mmol/L 1.19-1.41 Blood Gases, Arterial (RT) - 03/21/18 08 :58 Arterial Base Excess 1 NA 0-2 Arterial Bicarbonate 27 mEq/L 22-26 Arterial O2 Saturation 93.6 % 90.0-97 .0 Arterial PCO2 47 mmHg 35-45 Arterial PH 7.38 NA 7.35-7.45 Arterial PO2 70 mmHg 80-100 Arterial LPM 10.00 L/min O2 Panel SEE BELOW CBC With Platelet No Differential - 10/09 04:45 HCT 43.8 % 37.0-47.0 HGB 14.1 g/dL 12.0-16.0 MCH 31.5 pg 27.0-32.0 MCHC 32.2 g/dL 32.0-36.0 MCV 97.8 fL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
[2020-03-20] MEDS ORDERED: METH-313 PO (15:23)
[2020-03-20] MEDS ORDERED: ENOXAPARIN 60 MG/0.6 ML (LOVENOX) SYR SC ONE (16:00)
== END 2020-03-20 16:20 | disposition home or self-care (01) ==
LOC: EDUNIT# 12:42 → ER 12:44
DX: R07.9 Chest pain, unspecified (principal); R79.89 Other specified abnormal findings of blood chemistry; J44.9 Chronic obstructive pulmonary disease, unspecified; I47.1 Supraventricular tachycardia; I25.2 Old myocardial infarction; G40.909 Epilepsy, unspecified, not intractable, without status epilepticus; G43.909 Migraine, unspecified, not intractable, without status migrainosus; K58.9 Irritable bowel syndrome, unspecified; E03.9 Hypothyroidism, unspecified; F41.9 Anxiety disorder, unspecified; F32.9 Major depressive disorder, single episode, unspecified; M06.9 Rheumatoid arthritis, unspecified; M79.10 Myalgia, unspecified site; M35.00 Sjogren syndrome, unspecified; M32.9 Systemic lupus erythematosus, unspecified; Z79.899 Other long term (current) drug therapy; Z88.1 Allergy status to other antibiotic agents; Z88.2 Allergy status to sulfonamides; Z88.5 Allergy status to narcotic agent; Z88.8 Allergy status to other drugs, medicaments and biological substances; Z91.041 Radiographic dye allergy status
CPT/HCPCS: 36415; 71045; 80053; 83605; 83690; 83735; 83874; 83880; 84484; 85025; 85379; 85610; 85730; 87040; 93005; 93041; 96372; 96374

== ENCOUNTER → 2020-03-21 | Outpatient (CLI) | payer MEDICAID ==
[~2020-03-21] MED LIST changes: +METH-313 PO
--- NOTE | 2020-03-21 12:25 | Diagnostic Imaging Report ---
INDICATION: Elevated D-dimer. Patient was administered 4.7 mCi technetium 99m MAA intravenously and imaging over the chest was performed in multiple obliquities. There is homogeneous perfusion of both lungs. No pleural-based perfusion defects are seen. IMPRESSION: Normal perfusion study. Dictated by: Dictated on workstation # [id number]
== END ==
LOC: CARD 09:48
PROVIDERS: ATTEND Family Medicine
DX: R79.89 Other specified abnormal findings of blood chemistry (principal)
CPT/HCPCS: 78580; A9540

== ENCOUNTER → 2020-04-04 | Outpatient (CLI) | payer MEDICAID ==
[2020-04-04 10:21] LABS: BILIRUBIN,URINE NEGATIVE (NEGATIVE); CLARITY,URINE CLEAR; COLOR,URINE YELLOW; GLUCOSE, URINE (UA) NEGATIVE (NEGATIVE); KETONES,URINE NEGATIVE (NEGATIVE); LEUKOCYTE ESTERASE ,URINE NEGATIVE (NEGATIVE); NITRITE,URINE NEGATIVE (NEGATIVE); PROTEIN,URINE NEGATIVE (NEGATIVE)
[2020-04-04 10:28] LABS: BACTERIA,URINE NEGATIVE /HPF; RBC,URINE 0-2 /HPF
[2020-04-04 22:03] LABS: HEPATITIS C ANTIBODY C Non-Reactive (Non-Reactive)
== END ==
LOC: LAB 09:33
DX: M35.00 Sjogren syndrome, unspecified (principal)
CPT/HCPCS: 36415; 81000; 85652; 86141; 86200; 86225; 86235; 86256; 86376; 86431; 86704; 86707; 86800; 86803; 87340

== ENCOUNTER → 2020-08-25 | Outpatient (CLI) | payer MEDICAID ==
--- NOTE | 2020-08-25 12:16 | Diagnostic Imaging Report ---
Digital mammogram INDICATION: Bilateral screening There are no prior studies available for comparison. At this time there are no current complaints. There are scattered fibronodular densities in both breasts which could obscure a lesion. There is no primary or secondary sign of malignancy noted. A number of small benign-appearing lymph nodes are seen overlying each axilla. IMPRESSION: 1. There is no evidence of malignancy. 2. The patient should have her annual bilateral screening mammogram on schedule in August 2021. ACR BI-RADS Category 1: Negative. Result letter will be mailed to the patient. Note: At least 10% of breast cancer is not imaged by mammography. Dictated by: Dictated on workstation # [id number]
== END ==
LOC: RAD 08:46
PROVIDERS: ATTEND Nurse Practitioner Family
DX: Z12.31 Encounter for screening mammogram for malignant neoplasm of breast (principal)
CPT/HCPCS: 77063; 77067

== ENCOUNTER → 2020-08-25 | Outpatient (CLI) | payer MEDICAID ==
--- NOTE | 2020-08-25 10:50 | Diagnostic Imaging Report ---
EXAMINATION: CT Neck and chest without contrast. TECHNIQUE: Multiple contiguous axial images were obtained through the neck and chest without contrast. All CT scans use one or more of the following dose optimizing techniques: automated exposure control, MA and/or KvP adjustment based on a patient size and exam type, or iterative reconstruction. HISTORY: History of unresectable neck mass. COMPARISON: 11/25/2019. 02/05/2018. FINDINGS: Neck CT: There is concentric soft tissue prominence in the oropharynx and hypopharynx resulting in narrowing of the airway at these levels. No discrete mass is seen on this noncontrast CT. The parapharyngeal fat planes are preserved. No mass is seen in the tongue. No evidence of prevertebral or retropharyngeal fluid collection or mass. The laryngeal structures are unremarkable. No pathologically enlarged lymphadenopathy is seen in the neck. The bilateral parotid and submandibular glands are unremarkable. The paranasal sinuses and mastoid air cells are clear. The globes and orbits are symmetric and unremarkable. The intracranial contents have a normal appearance. No evidence of fracture seen in the cervical spine. The craniocervical junction is intact. Chest CT: Nodules seen in the right upper lobe measuring 0.5 cm. A nodule seen in the periphery of the right upper lobe measuring 0.4 cm. A nodule seen in the left upper lobe measuring 0.4 cm. No new suspicious pulmonary nodules or masses are seen. No central endobronchial obstructing lesions. No pleural effusion or pneumothorax. Heart size is normal. No pericardial effusion. Aorta is normal in caliber. There is no axillary or supraclavicular lymphadenopathy. There is no mediastinal lymphadenopathy. Surgical clips are noted in the superior mediastinum. A small amount of soft tissue prominence is seen associated with the surgical clips, favored to represent scarring. Sternotomy wires are seen. No suspicious osseus lesions are seen in the chest. No acute fracture or dislocation. The included upper abdomen demonstrates no acute abnormalities. IMPRESSION: 1. Concentric soft tissue prominence in the oropharynx and hypopharynx, which may represent the patient's history of unresectable neck mass. However, no discrete mass is seen on this noncontrast exam and findings may be related to tonsillar hypertrophy. Subsequent airway narrowing is seen. Recommend correlation with patient's symptoms. 2. No pathologically enlarged lymphadenopathy is seen in the neck and chest. 3. Stable subcentimeter nodules in the upper lobes. No suspicious pulmonary nodules or masses. No focal consolidations. Dictated by: Dictated on workstation # [id number]
== END ==
LOC: RAD 10:15
PROVIDERS: ATTEND Otolaryngology Otolaryngology/Facial Plastic Surgery
DX: R91.8 Other nonspecific abnormal finding of lung field (principal); Z85.29 Personal history of malignant neoplasm of other respiratory and intrathoracic organs
CPT/HCPCS: 70490; 71250

== ENCOUNTER 2021-01-09 17:14 | Observation (INO) | payer MEDICAID ==
[2021-01-09] VITALS (7 sets, daily range): BP systolic 128–159; BP diastolic 64–99
[~2021-01-09] VITALS: Ht 165 cm; Wt 146.0 kg
[~2021-01-09 17:14] MED LIST changes: +SERT-414 PO; -SERT100T8 PO
[2021-01-09 17:59] LABS: BASOPHILS # (AUTO) 0.1 10^3/uL (0.0-0.1); BASOPHILS % (AUTO) 1 % (0-10); EOSINOPHILS # (AUTO) 0.2 10^3/uL (0.0-0.3); EOSINOPHILS % (AUTO) 3 % (0-10); HEMATOCRIT 44 % (35-52); HEMOGLOBIN 13.6 g/dL (11.5-16.0); LYMPHOCYTES % (AUTO) 24 % (12-44); MEAN CORPUSCULAR HEMOGLOBIN 29 pg (25-34); MEAN CORPUSCULAR HGB CONC 31 g/dL (32-36); MEAN CORPUSCULAR VOLUME 92 fL (80-99); MEAN PLATELET VOLUME 9.9 fL (9.0-12.2); MONOCYTES # (AUTO) 0.4 10^3/uL (0.0-1.0); MONOCYTES % (AUTO) 5 % (0-12); NEUTROPHILS # (AUTO) 5.5 10^3/uL (1.8-7.8); NEUTROPHILS % (AUTO) 67 % (42-75); PLATELET COUNT 283 10^3/uL (130-400); WHITE BLOOD COUNT 8.2 10^3/uL (4.3-11.0)
[2021-01-09] MEDS ORDERED: ASPIRIN 81 MG CHEW (CHILDREN'S ASA) PO ONE (18:00)
[2021-01-09] MEDS: NITROGLYCERIN 0.4 MG SL TABS BTL 25'S SL PRN ×2 (18:11→18:23)
[2021-01-09 18:13] LABS: INR 0.9 (0.8-1.4); PROTHROMBIN TIME PATIENT 12.7 SEC (12.2-14.7)
[2021-01-09 18:14] LABS: ALBUMIN 4.3 GM/DL (3.2-4.5); CHLORIDE 103 MMOL/L (98-107); POTASSIUM 4.1 MMOL/L (3.6-5.0); SODIUM 140 MMOL/L (135-145)
[2021-01-09 18:15] LABS: AMYLASE 25 U/L (25-125); CALCIUM 8.8 MG/DL (8.5-10.1)
[2021-01-09 18:16] LABS: GLUCOSE 95 MG/DL (70-105)
[2021-01-09 18:17] LABS: TOTAL PROTEIN 7.9 GM/DL (6.4-8.2)
[2021-01-09] MEDS ORDERED: LIDOCAINE 2% VISCOUS 15 ML UDC ONE ×2 (18:17→22:14)
[2021-01-09] MEDS ORDERED: ANTACID SUSP 30 ML UDC (MYLANTA) ONE ×2 (18:17→22:12)
[2021-01-09 18:18] LABS: BILIRUBIN,TOTAL 0.2 MG/DL (0.1-1.0); CARBON DIOXIDE 22 MMOL/L (21-32)
[2021-01-09] MEDS ORDERED: PANTOPRAZOLE 40 MG (PROTONIX) VIAL ONE (18:18)
[2021-01-09] MEDS ORDERED: ONDANSETRON 4 MG/2 ML (SDV) Z0FRAN ONE (18:18)
[2021-01-09 18:20] LABS: ALKALINE PHOSPHATASE 111 U/L (40-136); GFR ESTIMATED > 60
[2021-01-09 18:21] LABS: BUN/CREATININE RATIO 10
[2021-01-09 18:23] LABS: ALANINE AMINOTRANSFERASE 58 U/L (0-55); MAGNESIUM 2.1 MG/DL (1.6-2.4)
--- NOTE | 2021-01-09 18:23 | ED Chest Pain ---
General Chief Complaint: Chest Pain Stated Complaint: CP,SOB,[facility] 2ND COVID VAC 12/1920 Nursing Triage Note: PT PRESENTS TO ED FOR CHEST PAIN AND SHORTNESS OF BREATH THAT STARTED ABOUT AN HOUR AGO. PT IS ALSO C/O MOUTH PAIN, PT HAD ORAL SURGERY X'S 6 DAYS AGO AND IS IN A LOT OF PAIN. Nursing Sepsis Screen: No Definite Risk Source: patient, old records History of Present Illness Date Seen by Provider: Jan 09, 2021 Time Seen by Provider: 17:50 Initial Comments PT ARRIVES VIA POV FROM HOME C/O CHEST PAIN X 1 HOUR--BEGAN WHILE LAYING DOWN PAIN IS IN CENTER OF CHEST, NO RADIATION OF PAIN RATES PAIN 07/01 HAS NOT TAKEN ANYTHING FOR PAIN--TOOK MOTRIN A FEW HOURS AGO FOR ONGOING MOUTH P AIN --STATES SHE HAS NOT TAKEN ANYTHING ELSE FOR PAIN ( HOWEVER, PER MED RECONCILIATION, PT IS PRESCRIBED HYDROCODONE SENIOR CARE, DAILY USE, AND LAST FILLED RX FOR HYDROCODONE #84 ON 12/25/20--PT STATES SHE HAS NOT TAKEN ANY SINCE YESTERDAY BECAUSE SHE RAN OUT AND CANNOT REFILL THEM FOR ALMOST 2 WEEKS) + SHORTNESS OF BREATH, HAS COPD AND IS ALWAYS SHORT OF BREATH, BUT IS WORSE THAN NORMAL. DOES NOT HAVE HOME O2, HAS NOT USED INHALER OR NEBULIZER CONTINUES TO SMOKE 2 PPD PT HAS CHRONIC COUGH, BUT STATES IS WORSE THAN NORMAL + SWEATS + NAUSEA, NO VOMITING ALSO C/O SEVERE MOUTH PAIN--THIS SEEMS PT BE PT'S MAIN COMPLAINT, AND IS COMPL ETELY FIXATED ON THIS STATES SHE HAD ALL OF HER TEETH PULLED 6 DAYS AGO AND IS HAVING SEVERE PAIN FROM THAT STATES SHE HAS HAD FEVER OF "104" FOR THE LAST WEEK STATES SHE WAS TREATED FOR AN EAR INFECTION ABOUT 2 WEEKS AGO AND WAS ON ZITHROMAX HAS BEEN ON DOXYCYCLINE + PENICILLIN FOR THE LAST 6 DAYS STATES SHE NOW HAS THRUSH IN HER MOUTH PT SEEN BY CHRISTI DOZIER YESTERDAY FOR SECOND COVID-19 VACCINE AND PT WAS PRESCRIBED FLUCONAZOLE FOR THRUSH YESTERDAY BY CHRISTI DOZIER. PT CLAIMS SHE HAS HAD "5 HEART ATTACKS" IN THE PAST, AND STATES SHE HAS HAD 5 CARDIAC CATHS IN THE PAST--NO INTERVENTIONS PT JUST MOVED HER SEPTEMBER 2019, PT HAD A CARDIAC CATH BY DR. LAGUNA 11/18/19 AND WAS COMPLETELY NORMAL ALL PREVIOUS EKG'S DONE HERE HAVE BEEN COMPLETELY NORMAL. PT STATES SHE HAS HAD HISTORY OF SVT PT HAD HER SECOND COVID VACCINE YESTERDAY PCP: [facility], CHRISTI DOZIER FIRE TECHNICIAN: DR. ANDERSON--SEEN HIM EARLIER THIS YEAR FOR ROUTINE FOLLOW UP Allergies and Home Medications Allergies Coded Allergies: Iodinated Contrast Media (Verified Allergy, Unknown, 09/27/19) cephalexin (Verified Allergy, Unknown, 09/27/19) fentanyl (Verified Allergy, Unknown, 09/27/19) ketamine (Verified Allergy, Unknown, 09/27/19) ketorolac (Verified Allergy, Unknown, 09/27/19) lamotrigine (Verified Allergy, Unknown, 09/27/19) levofloxacin (Verified Allergy, Unknown, 09/27/19) propoxyphene (Verified Allergy, Unknown, 09/27/19) sulfamethoxazole (Verified Allergy, Unknown, 09/27/19) trimethoprim (Verified Allergy, Unknown, 09/27/19) hydromorphone (Verified Adverse Reaction, Unknown, Nausea, 01/09/21) Per patient. Home Medications Cetirizine HCl 10 Mg Capsule, 10 MG PO DAILY, (Reported) Clonazepam 0.5 Mg Tablet, 0.5 MG PO BID, (Reported) Fluticasone Propionate 16 Gm [place].susp, 1 SPRAY NSEACH BID, (Reported) Hydrocodone Bit/Acetaminophen 1 Each Tablet, 1 EACH PO TID PRN for PAIN- MODERATE, (Reported) Levothyroxine Sodium 200 Mcg Tablet, 200 MCG PO DAILY, (Reported) Meclizine HCl 25 Mg Tablet, 25 MG PO TID, (Reported) Meloxicam 15 Mg Tablet, 15 MG PO DAILY, (Reported) Methocarbamol 750 Mg Tablet, 750 MG PO Q8H PRN for SPASMS Prescribed by: MARGAUX OSBORN on 03/20/20 1523 Metoprolol Tartrate 25 Mg Tablet, 25 MG PO DAILY, (Reported) Naloxegol Oxalate 25 Mg Tablet, 25 MG PO DAILY, (Reported) Nitroglycerin 1 Each Patch.td24, 1 EACH TD DAILY, (Reported) APPLY IN AM REMOVE IN PM Nitroglycerin 0.4 Mg Tab.subl, 0.4 MG SL UD PRN for CHEST PAIN, (Reported) DISSOLVE UNDER TONGUE 1 Q 5 MIN X3 IF NO RELIEF CALL 911 Ondansetron HCl 4 Mg Tablet, 4 MG PO DAILY, (Reported) Sertraline HCl 100 Mg Tablet, 100 MG PO DAILY, (Reported) [Lidocaine] , 15 ML PO TID PRN for Throat Irritation, (Reported) Patient Home Medication List Home Medication List Reviewed: Yes Review of Systems Review of Systems Constitutional: see HPI, diaphoresis, fever, malaise, weakness EENTM: See HPI, Mouth Pain Respiratory: See HPI, Cough, Shortness of Air Cardiovascular: See HPI, Chest Pain Gastrointestinal: See HPI, Nausea; Denies Vomiting Genitourinary: No Symptoms Reported Musculoskeletal: no symptoms reported Skin: no symptoms reported Psychiatric/Neurological: Anxiety Endocrine: No Symptoms Reported Hematologic/Lymphatic: No Symptoms Reported Past Pljkomf-Tdphte-Dielep Hx Past Med/Social Hx: Reviewed and Corrections made Patient Social History Alcohol Use: Rarely Uses Smoking Status: Current Everyday Smoker Type Used: Cigarettes Recent Infectious Disease Expo: No Recent Hopitalizations: No Immunizations Up To Date Tetanus Booster (TDap): More than 5yrs PED Vaccines UTD: Yes Seasonal Allergies Seasonal Allergies: No Past Medical History Surgeries: Yes (THYMOMA REMOVALX2, INTERNAL MONITOR, LT SHOULDER, ORAL SURGERY) Appendectomy, Bladder Surgery, Hysterectomy, Orthopedic, Tubal Ligation Respiratory: Yes Asthma, COPD Cardiac: Yes (SVT;CLAIMS "5 HEART ATTACKS"NORMAL EKG'S/NORMAL CARD. 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: Hysterectomy, Tubal Ligation Genitourinary: Yes Kidney Stones Gastrointestinal: Yes (OPOID INDUCED CONSTIPATION) Irritable Bowel Musculoskeletal: Yes (LUPUS) Fibromyalgia, Rheumatoid Arthritis Endocrine: Yes (AMMON'S; SJOGREN'S; THYMUS REMOVED; OBESITY) Hypothyroidsim, Lupus HEENT: Yes (POOR DENTITION) Cancer: No Psychosocial: Yes Sleep Difficulties, Anxiety, Depression Integumentary: No Blood Disorders: No Family Medical History SOCIAL HISTORY: -ETOH--RARELY USES -DRUGS--DENIES USE -SMOKES 2 PPD PAST SURGICAL HISTORY: -THYMOMA REMOVED X 2 SURGERIES -CARDIAC CATHS--NO INTERVENTION -MOST RECENT CARDIAC CATH DONE HERE 11/18/[address] LAGUNA: FINDINGS: 1.Left main: Patent. 2.LAD: Patent. 3.Left circumflex artery: Patent. 4.RCA: Patent. 5.Left heart catheterization: LV pressure 95/3 mmHg. LVEDP 11 mmHg. Aortic pressure 108/71 mmHg. Normal LV function with no wall motion abnormalities. No gradient across the aortic valve. 6. Aortic arch angiogram: Medical necessity: Previous history of mediastinal/thoracic surgery. No evidence of proximal aortic dissection or aneurysm. Patent proximal segments of the great arteries. CONCLUSIONS: Patent epicardial coronary arteries. Continue primary prevention for atherosclerotic heart disease. Normal LVEDP and normal LV function -HYSTERECTOMY -BILATERAL TUBAL LIGATION -APPENDECTOMY -ALL TEETH PULLED 01/03/21 -LOOP RECORDER Physical Exam Vital Signs Vital Signs - First Documented Capillary Refill : Less Than 3 Seconds Height, Weight, BMI Height: '" Weight: lbs. oz. kg; 48.00 BMI Method: General Appearance: WD/WN, Obese, Other (EXTREMELY DRAMATIC, "SOBBING"--NO TEARS, WAILING, THRASHING, CONSTANT MOVEMENTS, NEON/MULTICOLORED HAIR) HEENT: PERRL/EOMI, Other (+ THRUSH ON TONGUE; GUMS WITH NORMAL POST-EXTRACTION APPEARANCE) Neck: Normal Inspection Respiratory: Normal Breath Sounds, No Accessory Muscle Use, No Respiratory Distress, Other (DIFFUSE MID CHEST TENDERNESS) Cardiovascular: Regular Rate, Rhythm, No Murmur Gastrointestinal: Non Tender, Soft Extremity: Pedal Edema (APPEARS TO HAVE PEDAL AND LOWER LEG EDEMA, BUT DIFFICULT TO DETERMINE DEGREE OF EDEMA DUE TO BODY HABITUS) Neurologic/Psychiatric: Alert, Oriented x3, No Motor/Sensory Deficits, 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 Norm as Tested Skin: Normal Color, Warm/Dry, Tattoos/Piercings, Other (EXTENSIVE SORES/SCARS/SCABS TO FACE, ARMS AND HANDS) Focused Exam Lactate Level 01/09/21 18:05: Lactic Acid Level 0.83 Lactic Acid Level Laboratory Tests Test 01/09/21 18:05 Lactic Acid Level 0.83 MMOL/L (0.50-2.00) Progress/Results/Core Measures Results/Orders Lab Results Laboratory Tests Test 01/09/21 17:50 01/09/21 18:05 01/09/21 18:20 01/09/21 18:50 Range/Units White Blood Count 8.2 4.3-11.0 10^3/uL Red Blood Count 4.75 3.80-5.11 10^6/uL Hemoglobin 13.6 11.5-16.0 g/dL Hematocrit 44 35-52 % Mean Corpuscular Volume 92 80-99 fL Mean Corpuscular Hemoglobin 29 25-34 pg Mean Corpuscular Hemoglobin Concent 31 L 32-36 g/dL Red Cell Distribution Width 16.8 H 10.0-14.5 % Platelet Count 283 130-400 10^3/uL Mean Platelet Volume 9.9 9.0-12.2 fL Immature Granulocyte % (Auto) 1 % Neutrophils (%) (Auto) 67 42-75 % Lymphocytes (%) (Auto) 24 12-44 % Monocytes (%) (Auto) 5 0-12 % Eosinophils (%) (Auto) 3 0-10 % Basophils (%) (Auto) 1 0-10 % Neutrophils # (Auto) 5.5 1.8-7.8 10^3/uL Lymphocytes # (Auto) 2.0 1.0-4.0 10^3/uL Monocytes # (Auto) 0.4 0.0-1.0 10^3/uL Eosinophils # (Auto) 0.2 0.0-0.3 10^3/uL Basophils # (Auto) 0.1 0.0-0.1 10^3/uL Immature Granulocyte # (Auto) 0.1 0.0-0.1 10^3/uL Erythrocyte Sedimentation Rate 36 H 0-20 MM/HR Prothrombin Time 12.7 12.2-14.7 SEC INR Comment 0.9 0.8-1.4 Activated Partial Thromboplast Time 30 24-35 SEC D-Dimer 0.79 H 0.00-0.49 UG/ML Sodium Level 140 135-145 MMOL/L Potassium Level 4.1 3.6-5.0 MMOL/L Chloride Level 103 98-107 MMOL/L Carbon Dioxide Level 22 21-32 MMOL/L Anion Gap 15 H 5-14 MMOL/L Blood Urea Nitrogen 7 7-18 MG/DL Creatinine 0.70 0.60-1.30 MG/DL Estimat Glomerular Filtration Rate > 60 BUN/Creatinine Ratio 10 Glucose Level 95 70-105 MG/DL Calcium Level 8.8 8.5-10.1 MG/DL Corrected Calcium 8.6 8.5-10.1 MG/DL Magnesium Level 2.1 1.6-2.4 MG/DL Total Bilirubin 0.2 0.1-1.0 MG/DL Aspartate Amino Transf (AST/SGOT) 20 5-34 U/L Alanine Aminotransferase (ALT/SGPT) 58 H 0-55 U/L Alkaline Phosphatase 111 40-136 U/L Lactate Dehydrogenase 219 125-220 U/L Total Creatine Kinase 116 29-168 U/L Creatine Kinase MB 1.2 <6.6 NG/ML Myoglobin 34.5 10.0-92.0 NG/ML Troponin I < 0.028 <0.028 NG/ML C-Reactive Protein High Sensitivity 3.30 H 0.00-0.50 MG/DL B-Type Natriuretic Peptide 13.7 <100.0 PG/ML Total Protein 7.9 6.4-8.2 GM/DL Albumin 4.3 3.2-4.5 GM/DL Amylase Level 25 25-125 U/L Lipase 7 L 8-78 U/L Free Thyroxine 0.57 L 0.70-1.48 NG/DL TSH Haakon Testing 17.03 H 0.35-4.94 UIU/ML Serum Test, Qualitative NEGATIVE NEGATIVE Acetaminophen Level < 10 L 10-30 UG/ML Serum Alcohol < 10 <10 MG/DL Lactic Acid Level 0.83 0.50-2.00 MMOL/L Coronavirus 2019 (ML) Not Detected Not Detecte Urine Color YELLOW Urine Clarity CLEAR Urine pH 6.5 5-9 Urine Specific [place] 1.010 L 1.016-1.022 Urine Protein NEGATIVE NEGATIVE Urine Glucose (UA) NEGATIVE NEGATIVE Urine Ketones 1+ H NEGATIVE Urine Nitrite NEGATIVE NEGATIVE Urine Bilirubin NEGATIVE NEGATIVE Urine Urobilinogen 0.2 < = 1.0 MG/DL Urine Leukocyte Esterase NEGATIVE NEGATIVE Urine RBC (Auto) NEGATIVE NEGATIVE Urine RBC NONE /HPF Urine WBC NONE /HPF Urine Squamous Epithelial Cells 0-2 /HPF Urine Crystals NONE /LPF Urine Bacteria NEGATIVE /HPF Urine Casts NONE /LPF Urine Mucus NEGATIVE /LPF Urine Culture Indicated NO Urine Opiates Screen POSITIVE H NEGATIVE Urine Oxycodone Screen NEGATIVE NEGATIVE Urine Methadone Screen NEGATIVE NEGATIVE Urine Propoxyphene Screen NEGATIVE NEGATIVE Urine Barbiturates Screen NEGATIVE NEGATIVE Ur Tricyclic Antidepressants Screen NEGATIVE NEGATIVE Urine Phencyclidine Screen NEGATIVE NEGATIVE Urine Amphetamines Screen NEGATIVE NEGATIVE Urine Methamphetamines Screen NEGATIVE NEGATIVE Urine Benzodiazepines Screen NEGATIVE NEGATIVE Urine Cocaine Screen NEGATIVE NEGATIVE Urine Cannabinoids Screen NEGATIVE NEGATIVE Micro Results Microbiology 01/09/21 Influenza Types A,B Antigen (AYANNA) - Final, Complete My Orders Orders - LAYNE SIM DO Cbc With Automated Diff (01/09/21 17:51) Magnesium (01/09/21 17:51) Chest 1 View, Ap/Pa Only (01/09/21 17:51) Ekg Tracing (01/09/21 17:51) Comprehensive Metabolic Panel (01/09/21 17:51) Myoglobin Serum (01/09/21 17:51) Protime With Inr (01/09/21 17:51) Partial Thromboplastin Time (01/09/21 17:51) O2 (01/09/21 17:51) Monitor-Rhythm Ecg Trace Only (01/09/21 17:51) Ed Iv/Invasive Line Start (01/09/21 17:51) Creatine Kinase (01/09/21 17:51) Creatine Kinase Mb (01/09/21 17:51) Lipase (01/09/21 17:51) Amylase (01/09/21 17:51) BNP (01/09/21 17:51) Fibrin Degradation Products (01/09/21 17:51) Troponin I (01/09/21 17:51) Nitroglycerin 0.4 Mg Btl 25's (Nitrostat (01/09/21 18:00) Aspirin Chewable Tablet (Baby Aspirin Ch (01/09/21 18:00) Acetaminophen (01/09/21 17:58) Alcohol (01/09/21 17:58) Hs C Reactive Protein (01/09/21 17:58) Erythrocyte Sedimentation Rate (01/09/21 17:58) Drug Screen Stat (Urine) (01/09/21 17:58) Hcg,Qualitative Serum (01/09/21 17:58) Lactic Acid Analyzer (01/09/21 17:58) Ua Culture If Indicated (01/09/21 17:58) Blood Culture (01/09/21 17:58) Influenza A And B Antigens (01/09/21 17:58) LDH (01/09/21 17:58) Covid 19 Inhouse Test (01/09/21 17:58) Ondansetron Injection (Zofran Injectio (01/09/21 18:30) Lidocaine 2% Viscous 15 Ml (Xylocaine Vi (01/09/21 18:30) Antacid Suspension (Mylanta Suspension (01/09/21 18:30) Pantoprazole Injection (Protonix Injecti (01/09/21 18:30) Antacid Suspension (Mylanta Suspension (01/09/21 18:17) Lidocaine 2% Viscous 15 Ml (Xylocaine Vi (01/09/21 18:17) Ondansetron Injection (Zofran Injectio (01/09/21 18:18) Pantoprazole Injection (Protonix Injecti (01/09/21 18:18) Oseltamivir 75 Mg Capsule (Tamiflu 75 (01/09/21 18:45) Thyroid Analyzer (01/09/21 18:41) Ibuprofen Tablet (Motrin Tablet) (01/09/21 19:15) Acetaminophen Tablet (Tylenol Tablet) (01/09/21 19:15) Ct Chest Wo (01/09/21 19:20) Free T4 (Free Thyroxine) (01/09/21 17:50) Lidocaine 2% Viscous 15 Ml (Xylocaine Vi (01/09/21 19:45) Antacid Suspension (Mylanta Suspension (01/09/21 19:45) Medications Given in ED Current Medications Medications Dose Ordered Sig/Yelitza Route Start Time Stop Time Status Last Admin Dose Admin Acetaminophen 1,000 mg ONCE ONCE PO 01/09/21 19:15 01/09/21 19:16 DC 01/09/21 19:13 1,000 MG Al Hydrox/Mg Hydrox/Simethicone 30 ml ONCE ONCE PO 01/09/21 18:30 01/09/21 18:31 DC 01/09/21 18:32 30 ML Al Hydrox/Mg Hydrox/Simethicone 30 ml ONCE ONCE PO 01/09/21 19:45 01/09/21 19:46 DC 01/09/21 19:46 30 ML Aspirin 324 mg ONCE ONCE PO 01/09/21 18:00 01/09/21 18:01 DC 01/09/21 18:17 324 MG Ibuprofen 800 mg ONCE ONCE PO 01/09/21 19:15 01/09/21 19:16 DC 01/09/21 19:12 800 MG Lidocaine HCl 15 ml ONCE ONCE PO 01/09/21 18:30 01/09/21 18:31 DC 01/09/21 18:33 15 ML Lidocaine HCl 15 ml ONCE ONCE PO 01/09/21 19:45 01/09/21 19:46 DC 01/09/21 19:46 15 ML Nitroglycerin 0.4 mg UD PRN SL 01/09/21 18:00 01/10/21 00:02 DC 01/10/21 00:02 0.4 MG Ondansetron HCl 4 mg ONCE ONCE IVP 01/09/21 18:30 01/09/21 18:31 DC 01/09/21 18:29 4 MG Oseltamivir Phosphate 75 mg ONCE ONCE PO 01/09/21 18:45 01/09/21 18:46 DC 01/09/21 18:45 75 MG Pantoprazole 40 mg ONCE ONCE IV 01/09/21 18:30 01/09/21 18:31 DC 01/09/21 18:30 40 MG Vital Signs/I&O 01/09/21 01/09/21 17:30 17:30 Temp 37.3 Pulse 81 Resp 16 B/P (MAP) 157/100 (119) O2 Delivery Room Air Room Air Blood Pressure Mean: 119 Progress Progress Note : Progress Note PLACED IN ISOLATION ROOM PPE WORN AT ALL TIMES COVID-19 TESTING PERFORMED GIVEN ASPIRIN GIVEN NTG X 2 WITH RELIEF OF CHEST PAIN GIVEN GI COCKTAIL FOR MOUTH AND CHEST PAIN GAVE TAMIFLU FOR + INFLUENZA B GAVE IBUPROFEN AND TYLENOL FOR MOUTH PAIN AND FOR HEADACHE AFTER NTG. PT IS FIXATED ON MOUTH PAIN FOR ENTIRE ER STAY PT DID HAVE IMPROVEMENT IN MOUTH PAIN WITH THE ABOVE MEASURES. PT IS ABLE TO SWALLOW AND HANDLE SECRETIONS, NO DROOLING PT WITH MULTIPLE DEMANDS THROUGHOUT ER STAY INITIALLY REFUSED ANYTHING BY MOUTH BECAUSE SHE SAID SHE "COULDN'T SWALLOW" ANYTHING DUE TO MOUTH PAIN--THIS WAS RELIEVED BY THE ABOVE MEASURES THEN WHEN SHE AGREED TO ADMIT, SHE IS NOW DEMANDING SOMETHING TO EAT "BECAUSE SHE IS STARVING AND HASN'T EATEN IN A WEEK" AND SHE WANTS SOMETHING TO EAT IMMEDIATELY. ADVISED PT THAT SHE WOULD HAVE A MEAL TRAY WHEN SHE GETS ADMITTED TO THE FLOOR SHE IS NOW FIXATED ON WANTING SOMETHING TO EAT AT TIME OF ADMIT ALSO WANTING NICOTINE PATCH ALSO WANTING HER HYDROCODONE Initial ECG Impression Date: Jan 09, 2021 Initial ECG Impression Time: 17:37 Initial ECG Rate: 82 Initial ECG Rhythm: Normal Sinus Initial ECG Impression: Normal Diagnostic Imaging Comments CXR--PER RADIOLOGIST REPORT AT 1927 FINDINGS: Stable prominent cardiac silhouette with post CABG changes noted. Loop recorder is seen overlying the cardiac silhouette. No focal consolidation. No large pleural effusion or pneumothorax. No acute osseous abnormalities. IMPRESSION: 1. Cardiomegaly. No overt pulmonary edema. CT CHEST- ( PT STATES ALLERGIC TO IV DYE, SO UNABLE TO DO ANGIOGRAM ) --PER RADIOLOGIST REPORT AT 1959 IMPRESSION: 1. Mild cardiomegaly. No overt pulmonary edema. 2. No focal consolidation or suspicious pulmonary nodules. No pleural effusions. 3. Hepatomegaly with hepatic steatosis. Reviewed: Reviewed by Me Departure Communication (Admissions) 2007--SPOKE WITH DR. MCGRAW, HOSPITALIST FOR [facility] [place], ORDERS NOTED 2010--SPOKE WITH DR. HERNANDEZ, SURGEON, FOR POSSIBLE EGD. ORDERS NOTED 2012--SPOKE WITH DR. FARIA, FIRE TECHNICIAN, ORDERS NOTED. HE DOES NOT ADVISE ADDITIONAL NITROGLYCERIN AT THIS TIME, ADVISES PAIN MEDICATION NEEDED. Impression Primary Impression: Chest pain Additional Impressions: Influenza B Oral thrush RECENT DENTAL EXTRACTIONS RECENT MULTIPLE ANTIBIOTIC USE HTN (hypertension) Chronic, continuous use of opioids Disposition: ADMITTED INPATIENT Condition: Improved Admissions Decision to Admit Reason: Admit from ER (General) Decision to Admit/Date: Jan 09, 2021 Time/Decision to Admit Time: 20:10 Departure-Patient Inst. Referrals: [facility] (PCP) Primary Care Physician KINDRA DOZIER (Family) Primary Care Physician LAYNE SIM DO Jan 09, 2021 18:23
[2021-01-09 18:24] LABS: CREATINE KINASE 116 U/L (29-168); LIPASE 7 U/L (8-78)
[2021-01-09 18:29] LABS: ACETAMINOPHEN < 10 UG/ML (10-30)
[2021-01-09] MEDS ORDERED: PANTOPRAZOLE 40 MG (PROTONIX) VIAL IV ONE (18:30)
[2021-01-09] MEDS ORDERED: ONDANSETRON 4 MG/2 ML (SDV) Z0FRAN IVP ONE (18:30)
[2021-01-09] MEDS ORDERED: ANTACID SUSP 30 ML UDC (MYLANTA) PO ONE ×2 (18:30→19:45)
[2021-01-09] MEDS ORDERED: LIDOCAINE 2% VISCOUS 15 ML UDC PO ONE ×2 (18:30→19:45)
[2021-01-09 18:32] LABS: CREATINE KINASE MB 1.2 NG/ML (<6.6)
[2021-01-09] MEDS ORDERED: OSELTAMIVIR 75 MG (TAMIFLU) CAPSULE PO ONE (18:45)
[2021-01-09 19:04] LABS: BILIRUBIN,URINE NEGATIVE (NEGATIVE); CLARITY,URINE CLEAR; COLOR,URINE YELLOW; GLUCOSE, URINE (UA) NEGATIVE (NEGATIVE); KETONES,URINE 1+ (NEGATIVE); LEUKOCYTE ESTERASE ,URINE NEGATIVE (NEGATIVE); NITRITE,URINE NEGATIVE (NEGATIVE); PH,URINE 6.5 (5-9); PROTEIN,URINE NEGATIVE (NEGATIVE)
[2021-01-09 19:10] LABS: BACTERIA,URINE NEGATIVE /HPF; SQUAMOUS EPITHELIAL CELL,UR 0-2 /HPF
[2021-01-09 19:14] LABS: BENZODIAZEPINES SCREEN URINE NEGATIVE (NEGATIVE)
[2021-01-09 19:15] LABS: AMPHETAMINE SCREEN, URINE NEGATIVE (NEGATIVE); BARBITURATE SCREEN URINE NEGATIVE (NEGATIVE); CANNABINOID SCREEN, URINE NEGATIVE (NEGATIVE); COCAINE SCREEN URINE NEGATIVE (NEGATIVE); METHADONE STAT NEGATIVE (NEGATIVE); METHAMPHETAMINE SCREEN URINE S NEGATIVE (NEGATIVE); OPIATE SCREEN URINE POSITIVE (NEGATIVE); OXYCODONE STAT NEGATIVE (NEGATIVE); PROPOXYPHENE STAT NEGATIVE (NEGATIVE); TRICYCLIC ANTIDEPRESSANTS SCRE NEGATIVE (NEGATIVE)
[2021-01-09] MEDS ORDERED: IBUPROFEN 800 MG (MOTRIN) TAB PO ONE (19:15)
[2021-01-09] MEDS ORDERED: ACETAMINOPHEN 500 MG TAB (TYLENOL) PO ONE (19:15)
--- NOTE | 2021-01-09 19:23 | Diagnostic Imaging Report ---
EXAMINATION: Chest 1 view HISTORY: Chest pain. COMPARISON: 03/20/2020. FINDINGS: Stable prominent cardiac silhouette with post CABG changes noted. Loop recorder is seen overlying the cardiac silhouette. No focal consolidation. No large pleural effusion or pneumothorax. No acute osseous abnormalities. IMPRESSION: 1. Cardiomegaly. No overt pulmonary edema. Dictated by: Dictated on workstation # [id number]
[2021-01-09 19:32] LABS: TSH (THYROID ANALYZER) 17.03 UIU/ML (0.35-4.94)
--- NOTE | 2021-01-09 19:53 | Diagnostic Imaging Report ---
EXAMINATION: CT Chest without contrast. TECHNIQUE: Multiple contiguous axial images were obtained through the chest without the use of intravenous contrast. All CT scans use one or more of the following dose optimizing techniques: automated exposure control, MA and/or KvP adjustment based on a patient size and exam type, or iterative reconstruction. HISTORY: Chest pain. Prior masses removed from the heart. COMPARISON: 08/25/2020. FINDINGS: The heart size is prominent with post-CABG changes noted. No pericardial effusion is present. There is no mediastinal, hilar, or axillary lymphadenopathy. The lungs demonstrate no pulmonary nodules or masses. There are no focal areas of consolidation. No central endobronchial obstructing lesions are identified. There is no pleural effusion or pneumothorax. The osseous structures demonstrate no acute abnormalities. There is hepatic steatosis with hepatomegaly. Both adrenal glands are unremarkable. IMPRESSION: 1. Mild cardiomegaly. No overt pulmonary edema. 2. No focal consolidation or suspicious pulmonary nodules. No pleural effusions. 3. Hepatomegaly with hepatic steatosis. Dictated by: Dictated on workstation # [id number]
[2021-01-09 20:09] LABS: FREE T4 (FREE THYROXINE) 0.57 NG/DL (0.70-1.48)
[2021-01-09] MEDS ORDERED: ACETAMINOPHEN 500 MG TAB (TYLENOL) PO PRN (21:30)
[2021-01-09] MEDS ORDERED: ONDANSETRON 4 MG/2 ML (SDV) Z0FRAN IV PRN (21:30)
[2021-01-09] MEDS ORDERED: IBUPROFEN 800 MG (MOTRIN) TAB PO PRN (21:45)
[2021-01-09] MEDS ORDERED: LIDOCAINE 2% PO PRN ×2 (21:45)
[2021-01-09] MEDS ORDERED: [UNRECOGNIZED DRUG - OTHER] PO PRN ×2 (21:45)
[2021-01-09] MEDS ORDERED: FLUCONAZOLE 100 MG/50 ML IVPB IV SCH ×2 (22:00)
[2021-01-09] MEDS: HYDROcodone/APAP 5 MG/325 MG (LORTAB) TAB PO PRN (22:28)
[2021-01-09] MEDS: NYSTATIN ORAL SUSP 5 ML UDC PO SCH (22:28)
[2021-01-09] MEDS: NICOTINE 21 MG (NICODERM) PATCH TD SCH (22:28)
[2021-01-09] MEDS: D5 1/2 NS W/KCL 20 MEQ/L 1,000 ML IV SCH (22:29)
[2021-01-09] MEDS: LIDOCAINE 2% PO PRN ×2 (22:42)
[2021-01-09] MEDS: [UNRECOGNIZED DRUG - OTHER] PO PRN ×2 (22:42)
[2021-01-09] MEDS ORDERED: SERTRALINE 100 MG (ZOLOFT) TAB PO ONE (23:25)
[2021-01-09] MEDS ORDERED: METHOCARBAMOL 750 MG (ROBAXIN) TAB PO ONE (23:25)
[2021-01-09] MEDS ORDERED: clonazePAM 0.5 MG (KlonoPIN) TAB PO ONE (23:25)
[2021-01-09] MEDS ORDERED: RAMELTEON 8 MG (ROZEREM) TAB PO ONE (23:25)
[2021-01-09] MEDS ORDERED: MECLIZINE 25 MG (ANTIVERT) TAB PO ONE (23:25)
[2021-01-10] VITALS (9 sets, daily range): BP systolic 135–157; BP diastolic 81–103
[2021-01-10] MEDS: NITROGLYCERIN 0.4 MG SL TABS BTL 25'S SL PRN (00:02)
[2021-01-10] MEDS: [UNRECOGNIZED DRUG - OTHER] PO PRN ×4 (02:44→06:51)
[2021-01-10] MEDS: LIDOCAINE 2% PO PRN ×4 (02:44→06:51)
[2021-01-10] MEDS: HYDROcodone/APAP 5 MG/325 MG (LORTAB) TAB PO PRN ×2 (03:07→16:11)
[2021-01-10 03:38] LABS: CHLORIDE 106 MMOL/L (98-107); POTASSIUM 3.9 MMOL/L (3.6-5.0); SODIUM 139 MMOL/L (135-145)
[2021-01-10 03:39] LABS: ALBUMIN 3.7 GM/DL (3.2-4.5)
[2021-01-10 03:40] LABS: CALCIUM 8.1 MG/DL (8.5-10.1); TRIGLYCERIDES 256 MG/DL (<150); VLDL CHOLESTEROL 51 MG/DL (5-40)
[2021-01-10 03:41] LABS: GLUCOSE 106 MG/DL (70-105); TOTAL PROTEIN 6.8 GM/DL (6.4-8.2)
[2021-01-10 03:42] LABS: CARBON DIOXIDE 19 MMOL/L (21-32)
[2021-01-10 03:43] LABS: BILIRUBIN,TOTAL 0.2 MG/DL (0.1-1.0)
[2021-01-10 03:44] LABS: ALKALINE PHOSPHATASE 85 U/L (40-136)
[2021-01-10 03:45] LABS: CHOLESTEROL 159 MG/DL (< 200); CREATININE SERUM 0.74 MG/DL (0.60-1.30); GFR ESTIMATED > 60
[2021-01-10 03:46] LABS: BUN/CREATININE RATIO 14
[2021-01-10 03:47] LABS: HDL CHOLESTEROL 31 MG/DL (40-60)
[2021-01-10 03:48] LABS: ALANINE AMINOTRANSFERASE 45 U/L (0-55)
[2021-01-10] MEDS: morphine INJ 4 MG/ML 1 ML (VIAL/SYRINGE) IV PRN ×5 (04:32→20:08)
[2021-01-10] MEDS: D5 1/2 NS W/KCL 20 MEQ/L 1,000 ML IV SCH ×2 (04:34→10:55)
[2021-01-10 04:54] LABS: BASOPHILS % (AUTO) 1 % (0-10); EOSINOPHILS # (AUTO) 0.2 10^3/uL (0.0-0.3); EOSINOPHILS % (AUTO) 3 % (0-10); HEMATOCRIT 41 % (35-52); HEMOGLOBIN 12.6 g/dL (11.5-16.0); LYMPHOCYTES # (AUTO) 2.4 10^3/uL (1.0-4.0); LYMPHOCYTES % (AUTO) 29 % (12-44); MEAN CORPUSCULAR HEMOGLOBIN 29 pg (25-34); MEAN CORPUSCULAR HGB CONC 31 g/dL (32-36); MEAN CORPUSCULAR VOLUME 93 fL (80-99); MEAN PLATELET VOLUME 10.6 fL (9.0-12.2); MONOCYTES # (AUTO) 0.5 10^3/uL (0.0-1.0); MONOCYTES % (AUTO) 6 % (0-12); NEUTROPHILS # (AUTO) 5.2 10^3/uL (1.8-7.8); NEUTROPHILS % (AUTO) 62 % (42-75); PLATELET COUNT 163 10^3/uL (130-400); WHITE BLOOD COUNT 8.5 10^3/uL (4.3-11.0)
[2021-01-10] MEDS: SUCRALFATE 1 GM (CARAFATE) TAB PO SCH ×4 (05:37→20:07)
[2021-01-10] MEDS ORDERED: ANTACID SUSP 30 ML UDC (MYLANTA) PO PRN (07:15)
[2021-01-10] MEDS ORDERED: LIDOCAINE 2% VISCOUS 15 ML UDC PO PRN ×2 (07:15→20:15)
[2021-01-10] MEDS ORDERED: MECLIZINE 25 MG (ANTIVERT) TAB PO PRN (07:45)
[2021-01-10] MEDS: ASPIRIN E.C. 81 MG (ECOTRIN) TAB PO SCH (08:14)
[2021-01-10] MEDS: OSELTAMIVIR 75 MG (TAMIFLU) CAPSULE PO SCH ×2 (08:15→20:06)
[2021-01-10] MEDS: NYSTATIN ORAL SUSP 5 ML UDC PO SCH (08:15)
[2021-01-10] MEDS: clonazePAM 0.5 MG (KlonoPIN) TAB PO SCH ×2 (08:15→20:06)
[2021-01-10] MEDS: METHOCARBAMOL 750 MG (ROBAXIN) TAB PO SCH ×5 (08:15→20:29)
--- NOTE | 2021-01-10 08:29 | Consultation-Cardiology ---
HPI-Cardiology Cardiology Consultation: Date of Consultation 01/10/21 Time Seen by a Provider: 08:30 Date of Admission 01-09-21 Attending Physician Ketty Eden DO Admitting Physician [facility] Consulting Physician Niki Lewis MD Primary Broke Beater: Dr. Torres HPI: Chief Complaint: Chest pain SOB Ms. Spears is a 45 yr old female admitted to [facility] from the ED with c/o mid- sternal chest pain which developed yesterday. She describes it as a squeezing sensation that would come and go. She has chronic SOB, which did not change with the chest pain. She reports the chest pain lasted off and on for several days. She reports the chest pain is worse with deep breathing. She states she continues to have chest pain and nothing has relieved it. She reports she has chronic nausea which is unchanged. She states she had dental extractions over 7 days ago and has had a fever off and on since then. She reports she has significant mouth pain and is requesting a 'dental block" for her pain. She reports she takes Hydrocodone and Ibuprofen several times a day for chronic yvette n. She reports she has had a non-productive cough. She did swab (+) for influenza. She has chronic bilat LE swelling which is unchanged in the recent past. She denies any diarrhea. She denies any syncope or near syncope. Review of Systems-Cardiology Review of Systems Constitutional: chills, fever, malaise Ears/Nose/Throat: As described under HPI; No epistaxis; mouth pain Respiratory: As described under HPI Cardiovascular: As described under HPI Gastrointestinal: As described under HPI Genitourinary: No dysuria, No hematuria Musculoskeletal: As describe under HPI, back pain, joint pain, joint swelling, muscle pain Skin: No rash on exposed areas, No ulcerations on exposed areas Psychiatric/Neurological: anxiety; No focal weakness, No syncope Hematologic: No bleeding abnormalities MOU-Xvthqq-Zudrol Hx Patient Social History Smoking Status: Current Everyday Smoker Have you traveled recently?: No Alcohol Use?: No Pt feels they are or have been: No Immunizations Up To Date Tetanus Booster (TDap): More than 5yrs Past Medical History PMH As described under Assessment. Family Medical History Family Medical History: No reported family h/o CAD. Allergies and Home Medications Allergies Coded Allergies: Iodinated Contrast Media (Verified Allergy, Unknown, 09/27/19) cephalexin (Verified Allergy, Unknown, 09/27/19) fentanyl (Verified Allergy, Unknown, 09/27/19) ketamine (Verified Allergy, Unknown, 09/27/19) ketorolac (Verified Allergy, Unknown, 09/27/19) lamotrigine (Verified Allergy, Unknown, 09/27/19) levofloxacin (Verified Allergy, Unknown, 09/27/19) propoxyphene (Verified Allergy, Unknown, 09/27/19) sulfamethoxazole (Verified Allergy, Unknown, 09/27/19) trimethoprim (Verified Allergy, Unknown, 09/27/19) hydromorphone (Verified Adverse Reaction, Unknown, Nausea, 01/09/21) Per patient. Home Medications Amoxicillin 500 Mg Capsule, 500 MG PO TID, (Reported) FILLED 01-03-2021 #30/10 DAY SUPPLY Last Action: Continued Atorvastatin Calcium 20 Mg Tablet, 20 MG PO HS, (Reported) Last Action: Continued Cetirizine HCl 10 Mg Capsule, 10 MG PO HS, (Reported) Last Action: Converted Clonazepam 0.5 Mg Tablet, 0.5 MG PO BID, (Reported) Last Action: Continued Doxycycline Hyclate 100 Mg Capsule, 100 MG PO BID, (Reported) Last Action: Converted Fluconazole 100 Mg Tablet, 100 MG PO DAILY, (Reported) FILLED 01-08-2021 #10 Last Action: Continued Fremanezumab-Vfrm 225 Mg/1.5 Ml Syringe, 225 MG INJ MONTHLY, (Reported) Last Action: Converted Furosemide 40 Mg Tablet, 40-80 MG PO DAILY PRN for FLUID RETENTION, (Reported) Last Action: Continued Hydrocodone/Acetaminophen 1 Each Tablet, 1 EA PO TID PRN for PAIN-MODERATE (5- 7), (Reported) Last Action: Continued Ibuprofen 800 Mg Tablet, 800 MG PO TID PRN for PAIN-MILD (1-4), (Reported) Last Action: Continued Isosorbide Mononitrate 30 Mg Tab.er.24h, 30 MG PO DAILY, (Reported) Last Action: Continued Levetiracetam 500 Mg Tablet, 500 MG PO BID, (Reported) Last Action: Continued Levothyroxine Sodium 200 Mcg Tablet, 200 MCG PO DAILY, (Reported) Last Action: Converted Lidocaine HCl 15 Ml Solution, ML PO PRN PRN for SORE MOUTH, (Reported) Last Action: Continued Meclizine HCl 25 Mg Tablet, 25 MG PO TID, (Reported) Last Action: Continued Methocarbamol 750 Mg Tablet, 1,500 MG PO TID, (Reported) TAKES 2 (750MHG) TABS Last Action: Continued Methotrexate Sodium 25 Mg/1 Ml Vial, 0.6 MG INJ WED, (Reported) Last Action: Held Naloxegol Oxalate 12.5 Mg Tablet, 12.5 MG PO DAILY, (Reported) Last Action: Converted Omeprazole 40 Mg Capsule.dr, 40 MG PO DAILY, (Reported) Last Action: Converted Ondansetron HCl 4 Mg Tablet, 4 MG PO TID PRN for NAUSEA/VOMITING-1ST LINE, (Reported) Last Action: Converted Ramelteon 8 Mg Tablet, 8 MG PO HS, (Reported) Last Action: Continued Sucralfate 1 Gm Tablet, 1 GM PO QID, (Reported) Last Action: Continued Physical Exam-Cardiology Physical Exam Vital Signs/I&O 01/11/21 01/11/21 01/11/21 00:02 04:59 08:03 Temp 36.0 36.2 36.6 Pulse 74 66 71 Resp 18 18 18 B/P (MAP) 142/79 (100) 161/95 (117) 138/82 (100) Pulse Ox 96 95 94 O2 Delivery Room Air Room Air Room Air 01/11/21 00:00 Intake Total 1260 ml Balance 1260 ml Capillary Refill : Less Than 3 Seconds Constitutional: AAO x 3, well-developed, well-nourished HEENT: other (edentulous), hearing is well preserved Respiratory: No accessory muscle use, No respiratory distress; chest expansion is symmetric, chest is bilaterally symmetric, lungs clear to auscultation Cardiovascular: regular rate-rhythm; No JVD; S1 and S2 Gastrointestinal: tender (epigastric tenderness with palpation), soft, round Extremities: other (mild bilat LE swelling) Neurologic/Psychiatric: grossly intact (moves all extremities) Skin: No rash on exposed areas, No ulcerations on exposed areas Data Review Labs Laboratory Tests 01/11/21 05:20: White Blood Count 8.9, Red Blood Count 4.46, Hemoglobin 12.7, Hematocrit 41, Mean Corpuscular Volume 93, Mean Corpuscular Hemoglobin 29, Mean Corpuscular Hemoglobin Concent 31L, Red Cell Distribution Width 17.1H, Platelet Count 285, Mean Platelet Volume 9.6, Immature Granulocyte % (Auto) 1, Neutrophils (%) (Auto) 55, Lymphocytes (%) (Auto) 34, Monocytes (%) (Auto) 7, Eosinophils (%) (Auto) 3, Basophils (%) (Auto) 0, Neutrophils # (Auto) 4.9, Lymphocytes # (Auto) 3.1, Monocytes # (Auto) 0.6, Eosinophils # (Auto) 0.3, Basophils # (Auto) 0.0, Immature Granulocyte # (Auto) 0.1, Sodium Level 140, Potassium Level 4.0, Chloride Level 104, Carbon Dioxide Level 24, Anion Gap 12, Blood Urea Nitrogen 5L, Creatinine 0.74, Estimat Glomerular Filtration Rate > 60, BUN/Creatinine Ratio 7, Glucose Level 103, Calcium Level 8.5, Corrected Calcium 8.5, Total Bilirubin 0.2, Aspartate Amino Transf (AST/SGOT) 18, Alanine Aminotransferase (ALT/SGPT) 38, Alkaline Phosphatase 110, Total Protein 7.3, Albumin 4.0 Microbiology 01/09/21 Blood Culture - Preliminary, Resulted No growth 01/09/21 Influenza Types A,B Antigen (AYANNA) - Final, Complete Radiology NAME: SPEARSLAYNE FINNEGAN [facility] REC#: [id number] PT STATUS: REG ER : 1975 PHYSICIAN: LAYNE SIM DO ADMIT DATE: 01/09/21/ER Signed Date of Exam:01/09/21 CHEST 1 VIEW, AP/PA ONLY EXAMINATION: Chest 1 view HISTORY: Chest pain. COMPARISON: 03/20/2020. FINDINGS: Stable prominent cardiac silhouette with post CABG changes noted. Loop recorder is seen overlying the cardiac silhouette. No focal consolidation. No large pleural effusion or pneumothorax. No acute osseous abnormalities. IMPRESSION: 1. Cardiomegaly. No overt pulmonary edema. Dictated by: Dictated on workstation # [id number] Dict: 01/09/211919 Trans: 01/09/211924 [facility] [id number] Interpreted by: ZEKE WHITESIDE DO Electronically signed by: ZEKE WHITESIDE DO 01/09/211924 NAME: SPEARSLAYNE FINNEGAN [facility] REC#: [id number] PT STATUS: REG ER : 1975 PHYSICIAN: LAYNE SIM DO ADMIT DATE: 01/09/21/ER Signed Date of Exam:01/09/21 CT CHEST WO EXAMINATION: CT Chest without contrast. TECHNIQUE: Multiple contiguous axial images were obtained through the chest without the use of intravenous contrast. All CT scans use one or more of the following dose optimizing techniques: automated exposure control, MA and/or KvP adjustment based on a patient size and exam type, or iterative reconstruction. HISTORY: Chest pain. Prior masses removed from the heart. COMPARISON: 08/25/2020. FINDINGS: The heart size is prominent with post-CABG changes noted. No pericardial effusion is present. There is no mediastinal, hilar, or axillary lymphadenopathy. The lungs demonstrate no pulmonary nodules or masses. There are no focal areas of consolidation. No central endobronchial obstructing lesions are identified. There is no pleural effusion or pneumothorax. The osseous structures demonstrate no acute abnormalities. There is hepatic steatosis with hepatomegaly. Both adrenal glands are unremarkable. IMPRESSION: 1. Mild cardiomegaly. No overt pulmonary edema. 2. No focal consolidation or suspicious pulmonary nodules. No pleural effusions. 3. Hepatomegaly with hepatic steatosis. Dictated by: Dictated on workstation # [id number] Dict: 01/09/211947 Trans: 01/09/211957 [facility] [id number] Interpreted by: ZEKE WHITESIDE DO Electronically signed by: ZEKE WHITESIDE DO 01/09/211957 ECG Impression ECG Initial ECG Rhythm: Normal Sinus A/P-Cardiology Assessment/Admission Diagnosis Chest pain of undetermined etiology - no evidence of ACS (+) Influenza B GERD Chronic pain syndrome for which she is on chronic narcotic/NSAIDs Implantable loop recorder done on 05/2019 in [place] - followed by Dr. Torres Sinus tachycardia, still having generalized fatigue, loss of energy Near syncopal episode on March 09, 2020 was not associated with pause or bradycardia Intolerant to BB d/t 4 second pause in February 2020 when on BB tx, no further episodes since stopping Cardiac cath done 09/[address] Angela which shows normal arteries. Echocardiogram 09/[address] Angela shows normal systolic and diastolic function No evidence of carotid arterial dz H/O mediastinal and supraglottic mass with resection in 2019 in [place], [place] H/O sternotomy with mediastinal mass post resection done at [place], [place] in 2018 Lupus, Fibromyalgia, Sjogren's syndrome, Yudith's Tobaccoism H/O amphetamine abuse and cocaine abuse in the past Discussion and Recomendations Chest pain of undetermined etiology with no evidence of ACS Continue PPI d/t symptoms of GERD, reported use of chronic narcotics and NSAIDs Intolerant to BB in the past d/t bradycardia Start amlodipine for BP control Management of influenza per medical services Management of hypothyroidism per medical services Monitor lab Further recs will be based on her hospital course We would like to thank medical services for this consult SHELLEY GARCÍA Jan 10, 2021 08:29
[2021-01-10] MEDS ORDERED: PANTOPRAZOLE 40 MG (PROTONIX) VIAL IV SCH (09:00)
--- NOTE | 2021-01-10 10:49 | Consultation - Surgery ---
History of Present Illness History of Present Illness Patient Consulted On(walter/time) 01/10/21 10:43 Date Seen by Provider: Jan 10, 2021 Time Seen by Provider: 10:43 History of Present Illness Consult requested by Dr. Eden for possible EGD Patient is a 45-year-old female who presented to the emergency department with chest pain and shortness of breath. Patient states she is always have a little shortness of breath but slightly worsening. She has chest pains in the middle of her chest without any radiation. This has improved slightly she states. Patient has pain with swallowing she recently approximately a week ago had dental surgery removing teeth. Unable to swallow. She has been on multiple antibiotics and after surgery has developed thrush which is causing her pain and discomfort and difficulty swallowing. She states the GI cocktail helped. Patient states she typically takes omeprazole for GERD and she has history of ulcer. She was just recently scoped by Dr. Funes she states in [place]. She follows with him. Patient with no significant abdominal pain at this time. She tested positive for flu B. She denies any nausea vomiting, abdominal pain, blood in stools, any other complaints at this time. CT of the chest and abdomen no acute issue. Allergies and Home Medications Allergies Coded Allergies: Iodinated Contrast Media (Verified Allergy, Unknown, 09/27/19) cephalexin (Verified Allergy, Unknown, 09/27/19) fentanyl (Verified Allergy, Unknown, 09/27/19) ketamine (Verified Allergy, Unknown, 09/27/19) ketorolac (Verified Allergy, Unknown, 09/27/19) lamotrigine (Verified Allergy, Unknown, 09/27/19) levofloxacin (Verified Allergy, Unknown, 09/27/19) propoxyphene (Verified Allergy, Unknown, 09/27/19) sulfamethoxazole (Verified Allergy, Unknown, 09/27/19) trimethoprim (Verified Allergy, Unknown, 09/27/19) hydromorphone (Verified Adverse Reaction, Unknown, Nausea, 01/09/21) Per patient. Home Medications Cetirizine HCl 10 Mg Capsule, 10 MG PO DAILY, (Reported) Clonazepam 0.5 Mg Tablet, 0.5 MG PO BID, (Reported) Fluticasone Propionate 16 Gm [place].susp, 1 SPRAY NSEACH BID, (Reported) Hydrocodone Bit/Acetaminophen 1 Each Tablet, 1 EACH PO TID PRN for PAIN- MODERATE, (Reported) Levothyroxine Sodium 200 Mcg Tablet, 200 MCG PO DAILY, (Reported) Meclizine HCl 25 Mg Tablet, 25 MG PO TID, (Reported) Meloxicam 15 Mg Tablet, 15 MG PO DAILY, (Reported) Methocarbamol 750 Mg Tablet, 750 MG PO Q8H PRN for SPASMS Prescribed by: MARGAUX OSBORN on 03/20/20 1523 Metoprolol Tartrate 25 Mg Tablet, 25 MG PO DAILY, (Reported) Naloxegol Oxalate 25 Mg Tablet, 25 MG PO DAILY, (Reported) Nitroglycerin 1 Each Patch.td24, 1 EACH TD DAILY, (Reported) APPLY IN AM REMOVE IN PM Nitroglycerin 0.4 Mg Tab.subl, 0.4 MG SL UD PRN for CHEST PAIN, (Reported) DISSOLVE UNDER TONGUE 1 Q 5 MIN X3 IF NO RELIEF CALL 911 Ondansetron HCl 4 Mg Tablet, 4 MG PO DAILY, (Reported) Sertraline HCl 100 Mg Tablet, 100 MG PO DAILY, (Reported) [Lidocaine] , 15 ML PO TID PRN for Throat Irritation, (Reported) Patient Home Medication List Home Medication List Reviewed: Yes Past Dvdfqlp-Mpvxic-Xwivzs Hx Patient Social History Smoking Status: Current Everyday Smoker Type Used: Cigarettes Recent Hopitalizations: No Alcohol Use?: No Have you traveled recently?: No Immunizations Up To Date Tetanus Booster (TDap): More than 5yrs PED Vaccines UTD: Yes Seasonal Allergies Seasonal Allergies: No Surgeries History of Surgeries: Yes (THYMOMA REMOVALX2, INTERNAL MONITOR, LT SHOULDER, ORAL SURGERY) Surgeries: Appendectomy, Bladder Surgery, Hysterectomy, Orthopedic, Tubal Ligation Respiratory History of Respiratory Disorde: Yes Respiratory Disorders: Asthma, COPD Cardiovascular History of Cardiac Disorders: Yes (SVT;CLAIMS "5 HEART ATTACKS"NORMAL EKG'S/NORMAL CARD. 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: Hysterectomy, Tubal Ligation Genitourinary History of Genitourinary Disor: Yes Genitourinary Disorders: Kidney Stones Gastrointestinal History of Gastrointestinal Di: Yes (OPOID INDUCED CONSTIPATION) Gastrointestinal Disorders: Irritable Bowel Musculoskeletal History of Musculoskeletal Dis: Yes (LUPUS) Musculoskeletal Disorders: Fibromyalgia, Rheumatoid Arthritis Endocrine History of Endocrine Disorders: Yes (AMMON'S; SJOGREN'S; THYMUS REMOVED; OBESITY) Endocrine Disorders: Hypothyroidsim, Lupus HEENT History of HEENT Disorders: Yes (POOR DENTITION) Cancer History of Cancer: No Psychosocial History of Psychiatric Problem: Yes Behavioral Health Disorders: Sleep Difficulties, Anxiety, Depression Integumentary History of Skin or Integumenta: No Blood Transfusions History of Blood Disorders: No Reviewed Nursing Assessment Reviewed/Agree w Nursing PMH: Yes Family Medical History Significant Family History: No Pertinent Family Hx Review of Systems-General Constitutional: No chills, No diaphoresis EENTM: No blurred vision, No double vision Respiratory: No cough; short of breath Cardiovascular: chest pain; No edema, No palpitations Gastrointestinal: No abdominal pain; nausea, vomiting Genitourinary: No decreased output, No discharge Musculoskeletal: No back pain, No joint pain Skin: No change in color, No change in hair/nails Psychiatric/Neurological: Denies Anxiety, Denies Depressed, Denies Emotional Problems All Other Systems Reviewed Negative Unless Noted: Yes (Negative excepted noted.) Physical Exam-General Problems Physical Exam Vital Signs Vital Signs - First Documented 01/09/21 20:46 Pulse Ox 96 Capillary Refill : Less Than 3 Seconds General Appearance: WD/WN, no apparent distress HEENT: PERRL/EOMI, other (Gums with stitches, thrush apparent on tongue) Neck: non-tender, supple, normal inspection Respiratory: chest non-tender, no respiratory distress, no accessory muscle use Cardiovascular: regular rate, rhythm, no JVD Gastrointestinal: non tender, soft, no organomegaly Rectal: deferred Back: no CVA tenderness, no vertebral tenderness Extremities: non-tender, no pedal edema, no calf tenderness Neurologic/Psychiatric: medical practice manager II-XII nml as tested, alert, normal mood/affect, oriented x 3 Skin: normal color, warm/dry Lymphatic: no adenopathy Data Review Labs Laboratory Tests 01/09/21 17:50: White Blood Count 8.2, Red Blood Count 4.75, Hemoglobin 13.6, Hematocrit 44, Mean Corpuscular Volume 92, Mean Corpuscular Hemoglobin 29, Mean Corpuscular Hemoglobin Concent 31L, Red Cell Distribution Width 16.8H, Platelet Count 283, Mean Platelet Volume 9.9, Immature Granulocyte % (Auto) 1, Neutrophils (%) (Auto) 67, Lymphocytes (%) (Auto) 24, Monocytes (%) (Auto) 5, Eosinophils (%) (Auto) 3, Basophils (%) (Auto) 1, Neutrophils # (Auto) 5.5, Lymphocytes # (Auto) 2.0, Monocytes # (Auto) 0.4, Eosinophils # (Auto) 0.2, Basophils # (Auto) 0.1, Immature Granulocyte # (Auto) 0.1, Erythrocyte Sedimentation Rate 36H, Prothrombin Time 12.7, INR Comment 0.9, Activated Partial Thromboplast Time 30, D-Dimer 0.79H, Sodium Level 140, Potassium Level 4.1, Chloride Level 103, Carbon Dioxide Level 22, Anion Gap 15H, Blood Urea Nitrogen 7, Creatinine 0.70, Estimat Glomerular Filtration Rate > 60, BUN/Creatinine Ratio 10, Glucose Level 95, Calcium Level 8.8, Corrected Calcium 8.6, Magnesium Level 2.1, Total Bilirubin 0.2, Aspartate Amino Transf (AST/SGOT) 20, Alanine Aminotransferase (ALT/SGPT) 58H, Alkaline Phosphatase 111, Lactate Dehydrogenase 219, Total Creatine Kinase 116, Creatine Kinase MB 1.2, Myoglobin 34.5, Troponin I < 0.028, C-Reactive Protein High Sensitivity 3.30H, B-Type Natriuretic Peptide 13.7, Total Protein 7.9, Albumin 4.3, Amylase Level 25, Lipase 7L, Free Thyroxine 0.57L, TSH [place] Testing 17.03H, Serum Test, Qualitative NEGATIVE, Acetaminophen Level < 10L, Serum Alcohol < 10 01/09/21 18:05: Lactic Acid Level 0.83 01/09/21 18:20: Coronavirus 2019 (ML) Not Detected 01/09/21 18:50: Urine Color YELLOW, Urine Clarity CLEAR, Urine pH 6.5, Urine Specific [place] 1.010L, Urine Protein NEGATIVE, Urine Glucose (UA) NEGATIVE, Urine Ketones 1+H, Urine Nitrite NEGATIVE, Urine Bilirubin NEGATIVE, Urine Urobilinogen 0.2, Urine Leukocyte Esterase NEGATIVE, Urine RBC (Auto) NEGATIVE, Urine RBC NONE, Urine WBC NONE, Urine Squamous Epithelial Cells 0-2, Urine Crystals NONE, Urine Bacteria NEGATIVE, Urine Casts NONE, Urine Mucus NEGATIVE, Urine Culture Indicated NO, Urine Opiates Screen POSITIVEH, Urine Oxycodone Screen NEGATIVE, Urine Methadone Screen NEGATIVE, Urine Propoxyphene Screen NEGATIVE, Urine Barbiturates Screen NEGATIVE, Ur Tricyclic Antidepressants Screen NEGATIVE, Urine Phencyclidine Screen NEGATIVE, Urine Amphetamines Screen NEGATIVE, Urine Methamphetamines Screen NEGATIVE, Urine Benzodiazepines Screen NEGATIVE, Urine Cocaine Screen NEGATIVE, Urine Cannabinoids Screen NEGATIVE 01/09/21 21:40: Troponin I < 0.028 01/10/21 03:12: Sodium Level 139, Potassium Level 3.9, Chloride Level 106, Carbon Dioxide Level 19L, Anion Gap 14, Blood Urea Nitrogen 10, Creatinine 0.74, Estimat Glomerular Filtration Rate > 60, BUN/Creatinine Ratio 14, Glucose Level 106H, Calcium Level 8.1L, Corrected Calcium 8.3L, Total Bilirubin 0.2, Aspartate Amino Transf ( T/SGOT) 21, Alanine Aminotransferase (ALT/SGPT) 45, Alkaline Phosphatase 85, Total Protein 6.8, Albumin 3.7, Triglycerides Level 256H, Cholesterol Level 159, LDL Cholesterol Direct 101, VLDL Cholesterol 51H, HDL Cholesterol 31L 01/10/21 04:35: White Blood Count 8.5, Red Blood Count 4.38, Hemoglobin 12.6, Hematocrit 41, Mean Corpuscular Volume 93, Mean Corpuscular Hemoglobin 29, Mean Corpuscular Hemoglobin Concent 31L, Red Cell Distribution Width 16.9H, Platelet Count 163, Mean Platelet Volume 10.6, Immature Granulocyte % (Auto) 1, Neutrophils (%) (Auto) 62, Lymphocytes (%) (Auto) 29, Monocytes (%) (Auto) 6, Eosinophils (%) (Auto) 3, Basophils (%) (Auto) 1, Neutrophils # (Auto) 5.2, Lymphocytes # (Auto) 2.4, Monocytes # (Auto) 0.5, Eosinophils # (Auto) 0.2, Basophils # (Auto) 0.0, Immature Granulocyte # (Auto) 0.0 Microbiology 01/09/21 Influenza Types A,B Antigen (AYANNA) - Final, Complete Assessment/Plan Assessment/Plan Assessment/Plan Chest pain Influenza B Thrush Shortness of breath GERD with history of ulcers Patient is a 45-year-old female admitted for her chest pain and other symptoms. Would recommend treatment of thrush, patient had a recent EGD by Dr. 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 No need for repeating EGD at this time. Recommend being on Protonix 4 mg daily and Carafate 1 g four times a day. Will sign off call if needed. CHAGO HERNANDEZ DO Jan 10, 2021 10:48
--- NOTE | 2021-01-10 11:21 | History & Physical-Hospitalist ---
RAHUL JOHNSON, MED STUDENT 01/10/21 1121: History of Present Illness HPI/Chief Complaint Kay Garcia is a 45 y/o F w/ PMH of Asthma, COPD, fibromyalgia, RA, and lupus who is presenting for chest pain. The chest pain started 5-7 days ago, is located mid sternum a little off to the left side. The pain is described as a squeezing sensation that waxes and wanes in intensity and is a 10/10 at its worst. The pain is made worse with cough or deep breathing. Troponin x2 and EKG were unremarkable in the ED. Ms. Garcia also had a heart cath and echo done with Dr. Angela on 09/2019 and both were unremarkable. While in the ED, Ms. Garcia was found to have oral thrush and tested positive for Influenza A. She was subsequently started on oseltamivir and fluconazole and transferred to the medicine team. She was also hypertensive on admission w/ BP 157/100. She r eported that she had recently had an oral procedure done where her teeth were removed and she was subsequently placed on penicillin for. She also routinely takes doxycycline for her lupus facial rash. She also reported being on azithromycin for an unclear reason. Source: patient Exam Limitations: no limitations Date Seen 01/10/21 Attending Physician Ketty Mcgraw DO [facility]Pending [facility] To [facility] Referring Physician Date of Admission Jan 09, 2021 at 20:10 Home Medications & Allergies Home Medications Reviewed patient Home Medication Reconciliation performed by pharmacy medication reconciliations chief ophthalmic technician and/or nursing. Patients Allergies have been reviewed. Allergies Allergies Coded Allergies Iodinated Contrast Media (Verified Allergy, Unknown, 09/27/19) cephalexin (Verified Allergy, Unknown, 09/27/19) fentanyl (Verified Allergy, Unknown, 09/27/19) ketamine (Verified Allergy, Unknown, 09/27/19) ketorolac (Verified Allergy, Unknown, 09/27/19) lamotrigine (Verified Allergy, Unknown, 09/27/19) levofloxacin (Verified Allergy, Unknown, 09/27/19) propoxyphene (Verified Allergy, Unknown, 09/27/19) sulfamethoxazole (Verified Allergy, Unknown, 09/27/19) trimethoprim (Verified Allergy, Unknown, 09/27/19) hydromorphone (Verified Adverse Reaction, Unknown, Nausea, 01/09/21) Per patient. Patient Social History Tobacco Use?: Yes Smoking Status: Current Everyday Smoker Substance use?: No Alcohol Use?: No Pt stated abuse/neglect: No Immunizations Up To Date Influenza Vaccine Up-to-Date: No; Not Current Current Status Do you have an Advance Directi: No Communicates: Verbally Primary Language: Syriac Family Medical History Family Hx: SOCIAL HISTORY: -ETOH--RARELY USES -DRUGS--DENIES USE -SMOKES 2 PPD PAST SURGICAL HISTORY: -THYMOMA REMOVED X 2 SURGERIES -CARDIAC CATHS--NO INTERVENTION -MOST RECENT CARDIAC CATH DONE HERE 11/18/[address] ANGELA: FINDINGS: 1.Left main: Patent. 2.LAD: Patent. 3.Left circumflex artery: Patent. 4.RCA: Patent. 5.Left heart catheterization: LV pressure 95/3 mmHg. LVEDP 11 mmHg. Aortic pressure 108/71 mmHg. Normal LV function with no wall motion abnormalities. No gradient across the aortic valve. 6. Aortic arch angiogram: Medical necessity: Previous history of mediastinal/thoracic surgery. No evidence of proximal aortic dissection or aneurysm. Patent proximal segments of the great arteries. CONCLUSIONS: Patent epicardial coronary arteries. Continue primary prevention for atherosclerotic heart disease. Normal LVEDP and normal LV function -HYSTERECTOMY -BILATERAL TUBAL LIGATION -APPENDECTOMY -ALL TEETH PULLED 01/03/21 -LOOP RECORDER Review of Systems Constitutional: fever, weakness EENTM: dental problems, hoarseness, mouth pain, mouth swelling, throat pain Respiratory: no symptoms reported Cardiovascular: chest pain Gastrointestinal: dysphagia, heartburn, loss of appetite, nausea Genitourinary: no symptoms reported Physical Exam Physical Exam Vital Signs Vital Signs - First Documented 01/09/21 20:46 Pulse Ox 96 Capillary Refill : Less Than 3 Seconds Height, Weight, BMI Height: '" Weight: lbs. oz. kg; 53.62 BMI Method: General Appearance: WD/WN, Mild Distress Eyes: Bilateral Eye Normal Inspection, Bilateral Eye EOMI HEENT: Other (Thrush on tongue) Neck: Full Range of Motion, Normal Inspection Respiratory: Chest Non Tender, Lungs Clear, Normal Breath Sounds, No Accessory Muscle Use, No Respiratory Distress Cardiovascular: Regular Rate, Rhythm, No Edema, No Gallop, No JVD, No Murmur, Normal Peripheral Pulses Gastrointestinal: Normal Bowel Sounds, Non Tender, Soft Rectal: Deferred Back: Normal Inspection, No CVA Tenderness Extremity: Pedal Edema Neurologic/Psychiatric: Alert, Oriented x3 Results Results/Procedures Labs Laboratory Tests 01/09/21 17:50 01/10/21 03:12 01/10/21 04:35 Patient resulted labs reviewed. Imaging: Reviewed Imaging Report Assessment/Plan Admission Diagnosis Chest pain, thrush, influenza A, hypertension Admission Status: Inpatient Order (span 2 midnights) Assessment and Plan 45 y/o F w/ PMH of recent dental procedure and antibiotic use presenting for new onset chest pain and thrush; chest pain is likely 2/2 to the thrush #Chest pain - EKG w/o ischemic changes - Troponin negative x2 - Echo and LHC normal on 09/2019 - Has thrush Plan: > Cardiology following > Likely not cardiac in origin > Likely 2/2 to thrush #Thrush - New onset over the past 2 days Plan: > Fluconozole > F/u o/p EGD w/ her GI doctor #Influenza A - Viral panel positive Plan: > Oseltamivir 75mg BID > Droplet precautions #Hypertension - Home Metoprolol 25mg - Hx of 4sec pauses w/ beta agustin use - Loop recorder in place Plan: > Watch BP for now, will likely restart home medication #Hypothyroidism - T4 of 0.57 - Hx of thymoma s/p resectoin - 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 Pt had a normal cardiac catheterization, echocardiogram one week ago. She was found to have significant thrush, Nystatin swish and swallow and Diflucan was started. Cardiology evaluated her to be stable and no evidence of any acute coronary syndrome with EKG and Troponin with no acute changes. She does also have Influenza A, she was started on antivirals of Tamiflu. At this current time, Pt is complaining of pain, we will move her down t fourth floor and try to help her as much as possible but the pain will be a challenge since she has chronic pain and has an opioid addiction. Source: patient Exam Limitations: no limitations Time Seen by a Provider: 10:00 Patient Social History Marrital Status: single Employed/Student: unemployed Tobacco Use?: Yes Past Medical History Sjogren's GERD Family Medical History Family Hx: [place] Review of Systems Constitutional: see HPI EENTM: dental problems, throat pain Cardiovascular: chest pain Physical Exam Physical Exam General Appearance: No Apparent Distress, Chronically ill, Obese Eyes: Right Eye Normal Inspection, Right Eye PERRL HEENT: PERRL/EOMI, Normal ENT Inspection, Pharynx Normal, Moist Mucous Membranes Neck: Full Range of Motion, Normal Inspection, Non Tender Respiratory: Chest Non Tender, Lungs Clear, Normal Breath Sounds, No Accessory Muscle Use, No Respiratory Distress Cardiovascular: Regular Rate, Rhythm, No Edema, No Gallop, No JVD, No Murmur, Normal Peripheral Pulses Gastrointestinal: Normal Bowel Sounds, No Organomegaly, No Pulsatile Mass, Non Tender, Soft Back: Normal Inspection, No CVA Tenderness, No Vertebral Tenderness Extremity: Normal Capillary Refill, Normal Inspection, Normal Range of Motion, Non Tender, No Calf Tenderness, No Pedal Edema Neurologic/Psychiatric: Alert, Oriented x3, No Motor/Sensory Deficits, Normal Mood/Affect Skin: Normal Color, Warm/Dry Lymphatic: No Adenopathy Assessment/Plan Admission Diagnosis Assessment: Chest pain no evidence of ACS Candidal esophagitis Recent teeth extraction Obesity Autoimmune disorder Plan: Move to 4 th floor Home meds Diflucan Admission Status: Observation Supervisory-Addendum Brief Verification & Attestation Participated in pt care: history, MDM, physical Personally performed: exam, history, MDM, supervision of care Care discussed with: Medical Student Procedures: n/a Results interpretation: Verified all documentation Verification and Attestation of Medical Student E/M Service A medical student performed and documented this service in my presence. I reviewed and verified all information documented by the medical student and made modifications to such information, when appropriate. I personally performed the physical exam and medical decision making. Ketty Mcgraw, Jan 11, 2021,05:36 RAHUL JOHNSON, MED STUDENT Jan 10, 2021 11:21 KETTY MCGRAW DO Jan 11, 2021 05:36
[2021-01-10] MEDS: ENOXAPARIN 60 MG/0.6 ML (LOVENOX) SYR SC SCH ×2 (12:23→23:06)
[2021-01-10] MEDS: MAGIC MOUTHWASH (ADULT) PO SCH ×12 (12:23→20:07)
[2021-01-10] MEDS ORDERED: MAGIC MOUTHWASH, ADULT 155 ML BOTTLE PO SCH (13:00)
--- NOTE | 2021-01-10 13:34 | Physical Therapy Evaluation ---
PT Evaluation-General Medical Diagnosis Admission Date Jan 09, 2021 at 20:10 Medical Diagnosis: chest pain Onset Date: Jan 09, 2021 Therapy Diagnosis Therapy Diagnosis: impaired balance Precautions Precautions/Isolations: Droplet Isolation Referral Physician: Meek Reason for Referral: Evaluation/Treatment Medical History Additional Medical History Surgeries History of Surgeries: Yes (THYMOMA REMOVALX2, INTERNAL MONITOR, LT SHOULDER, ORAL SURGERY) Surgeries: Appendectomy, Bladder Surgery, Hysterectomy, Orthopedic, Tubal Ligation Respiratory History of Respiratory Disorde: Yes Respiratory Disorders: Asthma, COPD Cardiovascular History of Cardiac Disorders: Yes (SVT;CLAIMS "5 HEART ATTACKS"NORMAL EKG'S/NORMAL CARD. 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: Hysterectomy, Tubal Ligation Genitourinary History of Genitourinary Disor: Yes Genitourinary Disorders: Kidney Stones Gastrointestinal History of Gastrointestinal Di: Yes (OPOID INDUCED CONSTIPATION) Gastrointestinal Disorders: Irritable Bowel Musculoskeletal History of Musculoskeletal Dis: Yes (LUPUS) Musculoskeletal Disorders: Fibromyalgia, Rheumatoid Arthritis Endocrine History of Endocrine Disorders: Yes (AMMON'S; SJOGREN'S; THYMUS REMOVED; OBESITY) Endocrine Disorders: Hypothyroidsim, Lupus Prior Prior Level of Function SCALE: Activities may be completed with or without assistive devices. 8-Bswyiugyer-qbvhumw completes the activity by him/herself with no assistance from a helper. 5-Set-up or Clean-up Assistance-helper sets up or cleans up; patient completes activity. [place] assists only prior to or following the activity. 4-Supervision or Touching Assistance-helper provides verbal cues and/or touching/steadying and/or contact guard assistance as patient completes activity. Assistance may be provided throughout the activity or intermittently. 3-Partial/Moderate Assistance-helper does LESS THAN HALF the effort. [place] lifts, holds or supports trunk or limbs, but provides less than half the effort. 2-Substantial/Maximal Assistance-helper does MORE THAN HALF the effort. [place] lifts or holds trunk or limbs and provides more than half the effort. 7-Obxyqwkru-ozlylz does ALL the effort. Patient does none of the effort to complete the activity. Or, the assistance of 2 or more helpers is required for the patient to complete the activity. If activity was not attempted, code reason: 7-Patient Refused. 9-Not Applicable-not attempted and the patient did not perform the activity before the current illness, exacerbation or injury. 10-Not Attempted due to Environmental Limitations-(lack of equipment, weather restraints, etc.). 88-Not Attempted due to Medical Conditions or Safety Concerns. Bed Mobility: 6 Transfers (B,C,W/C): 6 Gait: 6 Indoor Mobility (Ambulation): Independent PT Evaluation-Current Subjective Patient in bed pre tx, reluctantly agrees to participate but doesn't want to get out of bed. She says she feels horrible (patient has influenza) and has 7/10 pain in her chest and head. She finally agrees to get up but is irritated Pt/Family Goals none stated Objective Patient Orientation: Person, Place, Situation Attachments: IV ROM/Strength ROM Lower Extremities generally slightly limited due to obesity Strength Lower Extremities 5/5 gross BLE Sensory Vision: Functional Hearing: Functional Transfers Roll Left to Right (QC): 6 Sit to Lying (QC): 6 Lying to Sitting/Side of Bed(Q: 6 Sit to Stand (QC): 6 Nurse states patient has been ambulating to the restroom on her own. Gait Does the Patient Walk?: Yes Mode of Locomotion: Walk Walk 10 feet (QC): 6 Distance: 10' Gait Assistive Device: None Comments/Gait Description Patient ambulates a few feet forward and back, doesn't want to ambulate any more. She does so independently. Balance Sitting Static: Normal Sitting Dynamic: Normal Standing Static: Normal Standing Dynamic: Fair Treatment While patient is up she performs a couple of heel raises and is unsteady but no LOB Assessment/Needs Patient has impaired balance but it could be because of her illness and having just woke up. Patient in bed post tx with nurse call, phone, tray, all needs met. Rehab Potential: Fair PT Shelter Goals Property Preservation Specialist Goals PT Property Preservation Specialist Goals Time Frame: Jan 17, 2021 Roll Left & Right (QC): 6 Sit to Lying (QC): 6 Lying-Sitting on Side/Bed(QC): 6 Sit to Stand (QC): 6 Chair/Ypv-gd-Uesrs Xfer(QC): 6 Toilet Transfer (QC): 6 Walk 10 feet (QC): 6 Walk 50ft with 2 Turns (QC): 6 PT Plan Problem List Problem List: Activity Tolerance, Functional Strength, Safety, Balance, Gait, Transfer, ROM Treatment/Plan Treatment Plan: Continue Plan of Care Treatment Plan: Education, Functional Activity Shine, Functional Strength, Gait, Safety, Therapeutic Exercise, Transfers Treatment Duration: Jan 17, 2021 Frequency: 6 times per week Estimated Hrs Per Day: .25 hour per day Patient and/or Family Agrees t: Yes Safety Risks/Education Patient Education: Gait Training, Transfer Techniques, Correct Positioning, Safety Issues Teaching Recipient: Patient Teaching Methods: Demonstration, Discussion Response to Teaching: Reinforcement Needed Educated patient on the use of ankle pumps for DVT prevention. Discharge Recommendations Plan Patient will perform bed mobility and transfer training, balance and endurance training, functional strengthening, stair training, gait training, and education, to improve functional mobility and independence at home. Therapy Discharge Recommendati: Home & Family Time/GCodes Time In: 1314 Time Out: 1322 Total Billed Treatment Time: 8 Total Billed Treatment 1 visit KARLEY CUMMINGS PT Jan 10, 2021 13:34
[2021-01-10] MEDS ORDERED: ATOR20TA66 PO (14:05)
[2021-01-10] MEDS ORDERED: METH-732 PO (14:05)
[2021-01-10] MEDS ORDERED: AMOX500C2 PO (14:05)
[2021-01-10] MEDS ORDERED: DOXY100C2 PO (14:05)
[2021-01-10] MEDS ORDERED: FREM225S INJ (14:05)
[2021-01-10] MEDS ORDERED: SUCR1TAB PO (14:05)
[2021-01-10] MEDS ORDERED: LIDO20SO23 PO (14:05)
[2021-01-10] MEDS ORDERED: HYDR-3817 PO (14:05)
[2021-01-10] MEDS ORDERED: IBUP-1780 PO (14:05)
[2021-01-10] MEDS ORDERED: FLUC100T6 PO (14:05)
[2021-01-10] MEDS ORDERED: ISOS30TA82 PO (14:05)
[2021-01-10] MEDS ORDERED: METH25VI57 INJ (14:05)
[2021-01-10] MEDS ORDERED: LEVE500T6 PO (14:05)
[2021-01-10] MEDS ORDERED: OMEP40CA27 PO (14:05)
[2021-01-10] MEDS ORDERED: NALO12.52 PO (14:05)
[2021-01-10] MEDS ORDERED: RAME8TAB24 PO (14:05)
[2021-01-10] MEDS ORDERED: FURO40TA4 PO (14:06)
[2021-01-10] MEDS ORDERED: FLUCONAZOLE 100 MG/50 ML IVPB IV SCH ×2 (15:30)
--- NOTE | 2021-01-10 15:53 | Consultation-Cardiology ---
HPI-Cardiology Cardiology Consultation: Date of Consultation 01/10/21 Time Seen by a Provider: 08:45 Date of Admission Attending Physician Ketty Eden DO Admitting Physician [place] Consulting Physician WALLACE FARIA MD, MA, FACP, FACC, FSCAI, CCDS HPI: Chief Complaint: CC: Chest pain, SOB HPI Ms. Garcia is a 45 yr old female admitted to [facility] from the ED with c/o mid- sternal chest pain which developed yesterday. She describes it as a squeezing sensation that would come and go. She has chronic SOB, which did not change with the chest pain. She reports the chest pain lasted off and on for several days. She reports the chest pain is worse with deep breathing. She states she continues to have chest pain and nothing has relieved it. She reports she has chronic nausea which is unchanged. She states she had dental extractions over 7 days ago and has had a fever off and on since then. She reports she has significant mouth pain and is requesting a 'dental block" for her pain. She reports she takes Hydrocodone and Ibuprofen several times a day for chronic pain. She reports she has had a non-productive cough. She did swab (+) for influenza. She has chronic bilat LE swelling which is unchanged in the recent past. She denies any diarrhea. She denies any syncope or near syncope. Review of Systems-Cardiology Review of Systems Constitutional: chills, fever, malaise Ears/Nose/Throat: As described under HPI; No epistaxis; mouth pain Respiratory: As described under HPI Cardiovascular: As described under HPI Gastrointestinal: As described under HPI Genitourinary: No dysuria, No hematuria Musculoskeletal: As describe under HPI, back pain, joint pain, joint swelling, muscle pain Skin: No rash on exposed areas, No ulcerations on exposed areas Psychiatric/Neurological: anxiety; No focal weakness, No syncope Hematologic: No bleeding abnormalities All Other Systems Reviewed Negative Unless Noted: Yes (Negative excepted noted.) ABJ-Rtvccm-Yibmog Hx Patient Social History Smoking Status: Current Everyday Smoker Have you traveled recently?: No Alcohol Use?: No Pt feels they are or have been: No Immunizations Up To Date Tetanus Booster (TDap): More than 5yrs Past Medical History PMH As described under Assessment. Family Medical History Family Medical History: No reported family h/o CAD. Allergies and Home Medications Allergies Coded Allergies: Iodinated Contrast Media (Verified Allergy, Unknown, 09/27/19) cephalexin (Verified Allergy, Unknown, 09/27/19) fentanyl (Verified Allergy, Unknown, 09/27/19) ketamine (Verified Allergy, Unknown, 09/27/19) ketorolac (Verified Allergy, Unknown, 09/27/19) lamotrigine (Verified Allergy, Unknown, 09/27/19) levofloxacin (Verified Allergy, Unknown, 09/27/19) propoxyphene (Verified Allergy, Unknown, 09/27/19) sulfamethoxazole (Verified Allergy, Unknown, 09/27/19) trimethoprim (Verified Allergy, Unknown, 09/27/19) hydromorphone (Verified Adverse Reaction, Unknown, Nausea, 01/09/21) Per patient. Home Medications Amoxicillin 500 Mg Capsule, 500 MG PO TID, (Reported) FILLED 01-03-2021 #30/10 DAY SUPPLY Last Action: Reviewed Atorvastatin Calcium 20 Mg Tablet, 20 MG PO HS, (Reported) Last Action: Reviewed Cetirizine HCl 10 Mg Capsule, 10 MG PO HS, (Reported) Last Action: Reviewed Clonazepam 0.5 Mg Tablet, 0.5 MG PO BID, (Reported) Last Action: Reviewed Doxycycline Hyclate 100 Mg Capsule, 100 MG PO BID, (Reported) Last Action: Reviewed Fluconazole 100 Mg Tablet, 100 MG PO DAILY, (Reported) FILLED 01-08-2021 #10 Last Action: Reviewed Fremanezumab-Vfrm 225 Mg/1.5 Ml Syringe, 225 MG INJ MONTHLY, (Reported) Last Action: Reviewed Furosemide 40 Mg Tablet, 40-80 MG PO DAILY PRN for FLUID RETENTION, (Reported) Last Action: Reviewed Hydrocodone/Acetaminophen 1 Each Tablet, 1 EA PO TID PRN for PAIN-MODERATE (5- 7), (Reported) Last Action: Reviewed Ibuprofen 800 Mg Tablet, 800 MG PO TID PRN for PAIN-MILD (1-4), (Reported) Last Action: Reviewed Isosorbide Mononitrate 30 Mg Tab.er.24h, 30 MG PO DAILY, (Reported) Last Action: Reviewed Levetiracetam 500 Mg Tablet, 500 MG PO BID, (Reported) Last Action: Reviewed Levothyroxine Sodium 200 Mcg Tablet, 200 MCG PO DAILY, (Reported) Last Action: Reviewed Lidocaine HCl 15 Ml Solution, ML PO PRN PRN for SORE MOUTH, (Reported) Last Action: Reviewed Meclizine HCl 25 Mg Tablet, 25 MG PO TID, (Reported) Last Action: Reviewed Methocarbamol 750 Mg Tablet, 1,500 MG PO TID, (Reported) TAKES 2 (750MHG) TABS Last Action: Reviewed Methotrexate Sodium 25 Mg/1 Ml Vial, 0.6 MG INJ WED, (Reported) Last Action: Reviewed Naloxegol Oxalate 12.5 Mg Tablet, 12.5 MG PO DAILY, (Reported) Last Action: Reviewed Omeprazole 40 Mg Capsule.dr, 40 MG PO DAILY, (Reported) Last Action: Reviewed Ondansetron HCl 4 Mg Tablet, 4 MG PO TID PRN for NAUSEA/VOMITING-1ST LINE, ( Reported) Last Action: Reviewed Ramelteon 8 Mg Tablet, 8 MG PO HS, (Reported) Last Action: Reviewed Sucralfate 1 Gm Tablet, 1 GM PO QID, (Reported) Last Action: Reviewed Patient Home Medication List Home Medication List Reviewed: Yes Physical Exam-Cardiology Physical Exam Vital Signs/I&O 01/10/21 01/10/21 01/10/21 01/10/21 04:00 04:23 06:38 08:00 Temp 36.6 Pulse 77 71 Resp 19 B/P (MAP) 151/89 (109) Pulse Ox 94 96 O2 Delivery Room Air Room Air 01/10/21 01/10/21 01/10/21 01/10/21 08:25 11:50 12:51 15:36 Temp 36.6 36.4 Pulse 76 67 66 Resp 16 11 B/P (MAP) 157/100 (119) 153/87 (109) Pulse Ox 96 95 O2 Delivery Room Air Room Air Room Air 01/10/21 00:00 Intake Total 350 ml Output Total 100 ml Balance 250 ml Capillary Refill : Less Than 3 Seconds Constitutional: AAO x 3, well-developed, well-nourished HEENT: other (edentulous), hearing is well preserved Respiratory: No accessory muscle use, No respiratory distress; chest expansion is symmetric, chest is bilaterally symmetric, lungs clear to auscultation Cardiovascular: regular rate-rhythm; No JVD; S1 and S2 Gastrointestinal: tender (epigastric tenderness with palpation), soft, round Rectal: deferred Extremities: other (mild bilat LE swelling) Neurologic/Psychiatric: grossly intact (moves all extremities) Skin: No rash on exposed areas, No ulcerations on exposed areas Lymphatic: no adenopathy Data Review Labs Laboratory Tests 01/09/21 17:50: White Blood Count 8.2, Red Blood Count 4.75, Hemoglobin 13.6, Hematocrit 44, Mean Corpuscular Volume 92, Mean Corpuscular Hemoglobin 29, Mean Corpuscular Hemoglobin Concent 31L, Red Cell Distribution Width 16.8H, Platelet Count 283, Mean Platelet Volume 9.9, Immature Granulocyte % (Auto) 1, Neutrophils (%) (Auto) 67, Lymphocytes (%) (Auto) 24, Monocytes (%) (Auto) 5, Eosinophils (%) (Auto) 3, Basophils (%) (Auto) 1, Neutrophils # (Auto) 5.5, Lymphocytes # (Auto) 2.0, Monocytes # (Auto) 0.4, Eosinophils # (Auto) 0.2, Basophils # (Auto) 0.1, Immature Granulocyte # (Auto) 0.1, Erythrocyte Sedimentation Rate 36H, Prothrombin Time 12.7, INR Comment 0.9, Activated Partial Thromboplast Time 30, D-Dimer 0.79H, Sodium Level 140, Potassium Level 4.1, Chloride Level 103, Carbon Dioxide Level 22, Anion Gap 15H, Blood Urea Nitrogen 7, Creatinine 0.70, Estimat Glomerular Filtration Rate > 60, BUN/Creatinine Ratio 10, Glucose Level 95, Calcium Level 8.8, Corrected Calcium 8.6, Magnesium Level 2.1, Total Bilirubin 0.2, Aspartate Amino Transf (AST/SGOT) 20, Alanine Aminotransferase (ALT/SGPT) 58H, Alkaline Phosphatase 111, Lactate Dehydrogenase 219, Total Creatine Kinase 116, Creatine Kinase MB 1.2, Myoglobin 34.5, Troponin I < 0.028, C-Reactive Protein High Sensitivity 3.30H, B-Type Natriuretic Peptide 13.7, Total Protein 7.9, Albumin 4.3, Amylase Level 25, Lipase 7L, Free Thyroxine 0.57L, TSH [place] Testing 17.03H, Serum Test, Qualitative NEGATIVE, Acetaminophen Level < 10L, Serum Alcohol < 10 01/09/21 18:05: Lactic Acid Level 0.83 01/09/21 18:20: Coronavirus 2019 (ML) Not Detected 01/09/21 18:50: Urine Color YELLOW, Urine Clarity CLEAR, Urine pH 6.5, Urine Specific [place] 1.010L, Urine Protein NEGATIVE, Urine Glucose (UA) NEGATIVE, Urine Ketones 1+H, Urine Nitrite NEGATIVE, Urine Bilirubin NEGATIVE, Urine Urobilinogen 0.2, Urine Leukocyte Esterase NEGATIVE, Urine RBC (Auto) NEGATIVE, Urine RBC NONE, Urine WBC NONE, Urine Squamous Epithelial Cells 0-2, Urine Crystals NONE, Urine Bacteria NEGATIVE, Urine Casts NONE, Urine Mucus NEGATIVE, Urine Culture Indicated NO, Urine Opiates Screen POSITIVEH, Urine Oxycodone Screen NEGATIVE, Urine Methadone Screen NEGATIVE, Urine Propoxyphene Screen NEGATIVE, Urine Barbiturates Screen NEGATIVE, Ur Tricyclic Antidepressants Screen NEGATIVE, Urine Phencyclidine Screen NEGATIVE, Urine Amphetamines Screen NEGATIVE, Urine Methamphetamines Screen NEGATIVE, Urine Benzodiazepines Screen NEGATIVE, Urine Cocaine Screen NEGATIVE, Urine Cannabinoids Screen NEGATIVE 01/09/21 21:40: Troponin I < 0.028 01/10/21 03:12: Sodium Level 139, Potassium Level 3.9, Chloride Level 106, Carbon Dioxide Level 19L, Anion Gap 14, Blood Urea Nitrogen 10, Creatinine 0.74, Estimat Glomerular Filtration Rate > 60, BUN/Creatinine Ratio 14, Glucose Level 106H, Calcium Level 8.1L, Corrected Calcium 8.3L, Total Bilirubin 0.2, Aspartate Amino Transf (AST/SGOT) 21, Alanine Aminotransferase (ALT/SGPT) 45, Alkaline Phosphatase 85, Total Protein 6.8, Albumin 3.7, Triglycerides Level 256H, Cholesterol Level 159, LDL Cholesterol Direct 101, VLDL Cholesterol 51H, HDL Cholesterol 31L 01/10/21 04:35: White Blood Count 8.5, Red Blood Count 4.38, Hemoglobin 12.6, Hematocrit 41, Mean Corpuscular Volume 93, Mean Corpuscular Hemoglobin 29, Mean Corpuscular He moglobin Concent 31L, Red Cell Distribution Width 16.9H, Platelet Count 163, Mean Platelet Volume 10.6, Immature Granulocyte % (Auto) 1, Neutrophils (%) (Auto) 62, Lymphocytes (%) (Auto) 29, Monocytes (%) (Auto) 6, Eosinophils (%) (Auto) 3, Basophils (%) (Auto) 1, Neutrophils # (Auto) 5.2, Lymphocytes # (Auto) 2.4, Monocytes # (Auto) 0.5, Eosinophils # (Auto) 0.2, Basophils # (Auto) 0.0, Immature Granulocyte # (Auto) 0.0 Microbiology 01/09/21 Blood Culture - Preliminary, Resulted No growth 01/09/21 Influenza Types A,B Antigen (AYANNA) - Final, Complete A/P-Cardiology Assessment/Admission Diagnosis Chest pain of undetermined etiology - no evidence of ACS (+) Influenza B GERD Chronic pain syndrome for which she is on chronic narcotic/NSAIDs Implantable loop recorder done on 05/2019 in [place] - followed by Dr. Torres Sinus tachycardia, still having generalized fatigue, loss of energy Near syncopal episode on March 09, 2020 was not associated with pause or bradycardia Intolerant to BB d/t 4 second pause in February 2020 when on BB tx, no further episodes since stopping Cardiac cath done 09/[address] Angela which shows normal arteries. Echocardiogram 09/[address] 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
[2021-01-10] MEDS: NICOTINE 21 MG (NICODERM) PATCH TD SCH (20:07)
[2021-01-10] MEDS ORDERED: IBUPROFEN 800 MG (MOTRIN) TAB PO PRN (20:15)
[2021-01-10] MEDS ORDERED: FUROSEMIDE 40 MG (LASIX) TAB PO PRN (20:15)
[2021-01-10] MEDS ORDERED: NON-FORMULARY MEDICATION 1 EA EA (Ondansetron HCl 4 MG) PO PRN (20:15)
[2021-01-10] MEDS ORDERED: FREMANEZUMAB VFRM 225 MG INJ SCH (20:15)
[2021-01-10] MEDS ORDERED: ONDANSETRON 4 MG (ZOFRAN) ORAL DISSOLVE TAB PO PRN (20:30)
[2021-01-10] MEDS ORDERED: SUCRALFATE 1 GM (CARAFATE) TAB PO SCH (21:00)
[2021-01-10] MEDS ORDERED: clonazePAM 0.5 MG (KlonoPIN) TAB PO SCH (21:00)
[2021-01-10] MEDS ORDERED: NON-FORMULARY MEDICATION 1 EA EA (Cetirizine HCl (Zyrtec) 10 MG) PO SCH (21:00)
[2021-01-10] MEDS ORDERED: RAMELTEON 8 MG (ROZEREM) TAB PO SCH ×2 (21:00)
[2021-01-10] MEDS ORDERED: LORATADINE (CLARITIN) 10 MG TAB PO SCH (21:00)
[2021-01-10] MEDS ORDERED: MECLIZINE 25 MG (ANTIVERT) TAB PO SCH (21:00)
[2021-01-10] MEDS ORDERED: SERTRALINE 100 MG (ZOLOFT) TAB PO SCH (21:00)
[2021-01-10] MEDS: HYDROcodone/APAP 7.5 MG/325 MG (LORTAB, LORCET PLUS) TABLET PO PRN (22:34)
[2021-01-11 00:02] VITALS: BP 142/79
[2021-01-11] MEDS: morphine INJ 4 MG/ML 1 ML (VIAL/SYRINGE) IV PRN ×2 (00:39→08:35)
[2021-01-11 04:59] VITALS: BP 161/95
[2021-01-11] MEDS: HYDROcodone/APAP 7.5 MG/325 MG (LORTAB, LORCET PLUS) TABLET PO PRN ×2 (05:35→11:38)
[2021-01-11] MEDS: SUCRALFATE 1 GM (CARAFATE) TAB PO SCH ×2 (05:35→11:37)
[2021-01-11 05:54] LABS: BASOPHILS % (AUTO) 0 % (0-10); EOSINOPHILS # (AUTO) 0.3 10^3/uL (0.0-0.3); EOSINOPHILS % (AUTO) 3 % (0-10); HEMATOCRIT 41 % (35-52); HEMOGLOBIN 12.7 g/dL (11.5-16.0); LYMPHOCYTES # (AUTO) 3.1 10^3/uL (1.0-4.0); LYMPHOCYTES % (AUTO) 34 % (12-44); MEAN CORPUSCULAR HEMOGLOBIN 29 pg (25-34); MEAN CORPUSCULAR HGB CONC 31 g/dL (32-36); MEAN CORPUSCULAR VOLUME 93 fL (80-99); MEAN PLATELET VOLUME 9.6 fL (9.0-12.2); MONOCYTES # (AUTO) 0.6 10^3/uL (0.0-1.0); MONOCYTES % (AUTO) 7 % (0-12); NEUTROPHILS # (AUTO) 4.9 10^3/uL (1.8-7.8); NEUTROPHILS % (AUTO) 55 % (42-75); PLATELET COUNT 285 10^3/uL (130-400); WHITE BLOOD COUNT 8.9 10^3/uL (4.3-11.0)
[2021-01-11 06:13] LABS: CHLORIDE 104 MMOL/L (98-107); SODIUM 140 MMOL/L (135-145)
[2021-01-11 06:14] LABS: CALCIUM 8.5 MG/DL (8.5-10.1)
[2021-01-11 06:15] LABS: GLUCOSE 103 MG/DL (70-105); TOTAL PROTEIN 7.3 GM/DL (6.4-8.2)
[2021-01-11 06:16] LABS: CARBON DIOXIDE 24 MMOL/L (21-32)
[2021-01-11 06:17] LABS: BILIRUBIN,TOTAL 0.2 MG/DL (0.1-1.0)
[2021-01-11 06:18] LABS: ALKALINE PHOSPHATASE 110 U/L (40-136)
[2021-01-11 06:19] LABS: CREATININE SERUM 0.74 MG/DL (0.60-1.30); GFR ESTIMATED > 60
[2021-01-11 06:20] LABS: BUN/CREATININE RATIO 7
[2021-01-11 06:22] LABS: ALANINE AMINOTRANSFERASE 38 U/L (0-55)
[2021-01-11] MEDS ORDERED: LEVOTHYROXINE 100 MCG (LEVOTHROID) TAB PO SCH (06:30)
[2021-01-11] MEDS ORDERED: fluCOnazole (DIFLUCAN) 100 MG TAB PO SCH (08:00)
[2021-01-11 08:03] VITALS: BP 138/82
[2021-01-11] MEDS: ASPIRIN E.C. 81 MG (ECOTRIN) TAB PO SCH (08:32)
[2021-01-11] MEDS: AMOXICILLIN 500 MG (POLYMOX) CAP PO SCH ×2 (08:32→12:44)
[2021-01-11] MEDS: METHOCARBAMOL 750 MG (ROBAXIN) TAB PO SCH ×2 (08:33→12:44)
[2021-01-11] MEDS: clonazePAM 0.5 MG (KlonoPIN) TAB PO SCH (08:33)
[2021-01-11] MEDS: MAGIC MOUTHWASH (ADULT) PO SCH ×8 (08:36→12:45)
[2021-01-11] MEDS: OSELTAMIVIR 75 MG (TAMIFLU) CAPSULE PO SCH (08:39)
[2021-01-11] MEDS ORDERED: NON-FORMULARY MEDICATION 1 EA EA (Levothyroxine Sodium 200 MCG) PO SCH (09:00)
[2021-01-11] MEDS ORDERED: PANTOPRAZOLE 40 MG (PROTONIX) TAB PO SCH (09:00)
[2021-01-11] MEDS ORDERED: NON-FORMULARY MEDICATION 1 EA EA (Omeprazole 40 MG) PO SCH (09:00)
[2021-01-11] MEDS ORDERED: DOXYCYCLINE 100 MG (VIBRAMYCIN) TABLET PO SCH (09:00)
[2021-01-11] MEDS ORDERED: NALOXEGOL OXALATE 12.5 MG PO SCH (09:00)
[2021-01-11] MEDS ORDERED: ISOSORBIDE MONONITRATE 30 MG (IMDUR) TAB PO SCH (09:00)
--- NOTE | 2021-01-11 10:43 | Progress Note - Cardiology ---
Cardiology SOAP Progress Note Subjective: Shortness of breath modestly improved No cp or palp or syncope Gen malaise and weakness No n/v/d Objective: I&O/Vital Signs 01/11/21 01/11/21 01/11/21 01/11/21 00:02 04:59 08:00 08:03 Temp 36.0 36.2 36.6 Pulse 74 66 71 Resp 18 18 18 B/P (MAP) 142/79 (100) 161/95 (117) 138/82 (100) Pulse Ox 96 95 94 94 O2 Delivery Room Air Room Air Room Air Room Air 01/11/21 00:00 Intake Total 1260 ml Balance 1260 ml Constitutional: AAO x 3, well-developed, well-nourished Respiratory: No accessory muscle use, No respiratory distress; chest expansion is symmetric, chest is bilaterally symmetric, lungs clear to auscultation Cardiovascular: regular rate-rhythm; No JVD; S1 and S2 Gastrointestional: tender (epigastric tenderness with palpation), soft, round Extremities: other (mild bilat LE swelling) Neurologic/Psychiatric: oriented x 3, other (moves all limbs equally) Skin: No rash on exposed areas, No ulcerations on exposed areas Results/Procedures: Labs Laboratory Tests 01/11/21 05:20: White Blood Count 8.9, Red Blood Count 4.46, Hemoglobin 12.7, Hematocrit 41, Mean Corpuscular Volume 93, Mean Corpuscular Hemoglobin 29, Mean Corpuscular Hemoglobin Concent 31L, Red Cell Distribution Width 17.1H, Platelet Count 285, Mean Platelet Volume 9.6, Immature Granulocyte % (Auto) 1, Neutrophils (%) (Auto) 55, Lymphocytes (%) (Auto) 34, Monocytes (%) (Auto) 7, Eosinophils (%) (Auto) 3, Basophils (%) (Auto) 0, Neutrophils # (Auto) 4.9, Lymphocytes # (Auto) 3.1, Monocytes # (Auto) 0.6, Eosinophils # (Auto) 0.3, Basophils # (Auto) 0.0, Immature Granulocyte # (Auto) 0.1, Sodium Level 140, Potassium Level 4.0, Chloride Level 104, Carbon Dioxide Level 24, Anion Gap 12, Blood Urea Nitrogen 5L, Creatinine 0.74, Estimat Glomerular Filtration Rate > 60, BUN/Creatinine Ratio 7, Glucose Level 103, Calcium Level 8.5, Corrected Calcium 8.5, Total Bilirubin 0.2, Aspartate Amino Transf (AST/SGOT) 18, Alanine Aminotransferase ( ALT/SGPT) 38, Alkaline Phosphatase 110, Total Protein 7.3, Albumin 4.0 Microbiology 01/09/21 Blood Culture - Preliminary, Resulted No growth 01/09/21 Influenza Types A,B Antigen (AYANNA) - Final, Complete Laboratory Tests 01/09/21 17:50 01/10/21 03:12 01/10/21 04:35 01/11/21 05:20 A/P: Assessment: Chest pain of undetermined etiology - no evidence of ACS (+) Influenza B GERD Chronic pain syndrome for which she is on chronic narcotic/NSAIDs Implantable loop recorder done on 05/2019 in [place] - followed by Dr. Torres Sinus tachycardia, still having generalized fatigue, loss of energy Near syncopal episode on March 09, 2020 was not associated with pause or bradycardia Intolerant to BB d/t 4 second pause in February 2020 when on BB tx, no further episodes since stopping Cardiac cath done 09/[address] Angela which shows normal arteries. Echocardiogram 09/[address] Angela shows normal systolic and diastolic function No evidence of carotid arterial dz H/O mediastinal and supraglottic mass with resection in 2019 in [place], [place] H/O sternotomy with mediastinal mass post resection done at [place], [place] in 2018 Lupus, Fibromyalgia, Sjogren's syndrome, Yudith's Tobaccoism H/O amphetamine abuse and cocaine abuse in the past Plan: Intolerant to BB in the past d/t bradycardia Tolerating amlodipine and bp better controlled Management of influenza per Medical services Management of hypothyroidism per Medical services Monitor labs WALLACE FARIA MD FACP FAC CCDS Jan 11, 2021 10:43
--- NOTE | 2021-01-11 10:47 | Physical Therapy Daily Note ---
PT Daily Note-Current Subjective Patient agrees to PT. She reports she is up independently in room without difficulty. Mental Status Patient Orientation: Normal For Age Transfers SCALE: Activities may be completed with or without assistive devices. 1-Wpnkheibbw-ycxgijz completes the activity by him/herself with no assistance from a helper. 5-Set-up or Clean-up Assistance-helper sets up or cleans up; patient completes activity. [place] assists only prior to or following the activity. 4-Supervision or Touching Assistance-helper provides verbal cues and/or touching/steadying and/or contact guard assistance as patient completes activity. Assistance may be provided throughout the activity or intermittently. 3-Partial/Moderate Assistance-helper does LESS THAN HALF the effort. [place] lifts, holds or supports trunk or limbs, but provides less than half the effort. 2-Substantial/Maximal Assistance-helper does MORE THAN HALF the effort. [place] lifts or holds trunk or limbs and provides more than half the effort. 3-Yvknhvqfs-labrgy does ALL the effort. Patient does none of the effort to complete the activity. Or, the assistance of 2 or more helpers is required for the patient to complete the activity. If activity was not attempted, code reason: 7-Patient Refused. 9-Not Applicable-not attempted and the patient did not perform the activity before the current illness, exacerbation or injury. 10-Not Attempted due to Environmental Limitations-(lack of equipment, weather restraints, etc.). 88-Not Attempted due to Medical Conditions or Safety Concerns. Roll Left & Right (QC): 6 Lying to Sitting/Side of Bed(Q: 6 Sit to Stand (QC): 6 Chair/Bru-sn-Hgbbu Xfer(QC): 6 Gait Training Does the Patient Walk?: Yes Distance: 175' Walk 10 feet (QC): 6 Walk 50 ft with 2 Turns(QC): 6 Walk 150 ft (QC): 6 Gait Assistive Device: None safe and functional with no deviation Assessment Patient is currently at independent PLOF with all gross motor skills and does not require skilled therapy intervention. PT Detention Goals Shear Operator Helper Goals PT Shear Operator Helper Goals Time Frame: Jan 17, 2021 Roll Left & Right (QC): 6 Sit to Lying (QC): 6 Lying-Sitting on Side/Bed(QC): 6 Sit to Stand (QC): 6 Chair/Ust-pq-Rohrc Xfer(QC): 6 Toilet Transfer (QC): 6 Walk 10 feet (QC): 6 Walk 50ft with 2 Turns (QC): 6 PT Plan Treatment/Plan Treatment Plan: Discontinue PT, goals met Treatment Plan: Education, Functional Activity Shine, Functional Strength, Gait, Safety, Therapeutic Exercise, Transfers Treatment Duration: Jan 17, 2021 Frequency: 6 times per week Estimated Hrs Per Day: .25 hour per day Patient and/or Family Agrees t: Yes Time/GCodes Time In: 914 Time Out: 922 Total Billed Treatment Time: 8 Total Billed Treatment 1 visit FA 8 min SAUL BURNETT PT Jan 11, 2021 10:47
[2021-01-11] MEDS: ENOXAPARIN 60 MG/0.6 ML (LOVENOX) SYR SC SCH (11:38)
[2021-01-11 11:49] VITALS: BP 125/72
[2021-01-11] MEDS ORDERED: OXYC1TAB12 PO (12:01)
[2021-01-11] MEDS ORDERED: OSLT75C PO (12:01)
[2021-01-11] MEDS ORDERED: NYST1000 PO (12:01)
[2021-01-11] MEDS ORDERED: METH25VI57 INJ (12:01)
--- NOTE | 2021-01-11 12:02 | Discharge Summary ---
Discharge Summary Hospital Course Was the Problem List Reviewed?: Yes Problems/Dx: (1) Chest pain Status: Acute (2) Influenza B Status: Acute (3) HTN (hypertension) Status: Acute (4) Oral thrush Status: Acute Hospital Course Date of Admission: Jan 09, 2021 at 20:10 Admission Diagnosis : Family Physician/Provider: Carlos Richter Date of Discharge: 01/11/21 Discharge Diagnosis: chest pain no evidence of ACS, yeast esophagitis, thrush, teeth extraction Hospital Course: Hospital Course: Pt had a brief hospital course. She was admitted for chest pain, no evidence of a true coronary syndrome per cardiology. Yeast esophagitis and thrush was treated with Nystatin Swish and Swallow and Diflucan and Amoxicillin was restarted s/p dental work treatment antibiotic prophylaxis. She was given Percocet, a small supply for the severity of her pain. Labs and Pending Lab Test: Laboratory Tests 01/11/21 05:20: White Blood Count 8.9, Red Blood Count 4.46, Hemoglobin 12.7, Hematocrit 41, Mean Corpuscular Volume 93, Mean Corpuscular Hemoglobin 29, Mean Corpuscular Hemoglobin Concent 31L, Red Cell Distribution Width 17.1H, Platelet Count 285, Mean Platelet Volume 9.6, Immature Granulocyte % (Auto) 1, Neutrophils (%) (Auto) 55, Lymphocytes (%) (Auto) 34, Monocytes (%) (Auto) 7, Eosinophils (%) (A uto) 3, Basophils (%) (Auto) 0, Neutrophils # (Auto) 4.9, Lymphocytes # (Auto) 3.1, Monocytes # (Auto) 0.6, Eosinophils # (Auto) 0.3, Basophils # (Auto) 0.0, Immature Granulocyte # (Auto) 0.1, Sodium Level 140, Potassium Level 4.0, Chloride Level 104, Carbon Dioxide Level 24, Anion Gap 12, Blood Urea Nitrogen 5L, Creatinine 0.74, Estimat Glomerular Filtration Rate > 60, BUN/Creatinine Ratio 7, Glucose Level 103, Calcium Level 8.5, Corrected Calcium 8.5, Total Bilirubin 0.2, Aspartate Amino Transf (AST/SGOT) 18, Alanine Aminotransferase (ALT/SGPT) 38, Alkaline Phosphatase 110, Total Protein 7.3, Albumin 4.0 Microbiology 01/09/21 Blood Culture - Preliminary, Resulted No growth 01/09/21 Influenza Types A,B Antigen (AYANNA) - Final, Complete Home Meds Active Percocet 10-325 mg Tablet (Oxycodone HCl/Acetaminophen) 1 Each Tablet 1 Tab PO Q8H PRN MDD 3 TABS Nystatin 100,000 Unit/1 Ml Oral.susp 100,000 Unit PO QID Tamiflu (Oseltamivir Phosphate) 75 Mg Cap 75 Mg PO BID Methotrexate (Methotrexate Sodium) 25 Mg/1 Ml Vial 0.6 Mg INJ FRI 7 Days Resume this medicine on 01/17/21 Reported Furosemide 40 Mg Tablet 40-80 Mg PO DAILY PRN Levetiracetam 500 Mg Tablet 500 Mg PO BID Ibuprofen 800 Mg Tablet 800 Mg PO TID PRN Doxycycline Hyclate 100 Mg Capsule 100 Mg PO BID Atorvastatin Calcium 20 Mg Tablet 20 Mg PO HS Isosorbide Mononitrate ER (Isosorbide Mononitrate) 30 Mg Tab.er.24h 30 Mg PO DAILY Sucralfate 1 Gm Tablet 1 Gm PO QID Methocarbamol 750 Mg Tablet 1,500 Mg PO TID TAKES 2 (750MHG) TABS Lidocaine HCl Viscous (Lidocaine HCl) 15 Ml Solution Ml PO PRN PRN Ramelteon 8 Mg Tablet 8 Mg PO HS Hydrocodone-Acetamin 7.5-325 (Hydrocodone/Acetaminophen) 1 Each Tablet 1 Ea PO TID PRN [place] (Fremanezumab-Vfrm) 225 Mg/1.5 Ml Syringe 225 Mg INJ MONTHLY Movantik (Naloxegol Oxalate) 12.5 Mg Tablet 12.5 Mg PO DAILY Omeprazole 40 Mg Capsule.dr 40 Mg PO DAILY Amoxicillin 500 Mg Capsule 500 Mg PO TID FILLED 01-03-2021 #30/10 DAY SUPPLY Fluconazole 100 Mg Tablet 100 Mg PO DAILY FILLED 01-08-2021 #10 Ondansetron HCl 4 Mg Tablet 4 Mg PO TID PRN Meclizine HCl 25 Mg Tablet 25 Mg PO TID Clonazepam 0.5 Mg Tablet 0.5 Mg PO BID Levothyroxine Sodium 200 Mcg Tablet 200 Mcg PO DAILY Zyrtec (Cetirizine HCl) 10 Mg Capsule 10 Mg PO HS Assessment/Pt Instructions [facility] 1 week Discharge Planning: <30 minutes discharge planning Discharge Instructions Discharge Diet: No Restrictions Activity as Tolerated: Yes Discharge Physical Examination Vital Signs Vital Signs Date Time Temp Pulse Resp B/P (MAP) Pulse Ox O2 Delivery O2 Flow Rate FiO2 01/11/21 11:49 35.6 76 18 125/72 (89) 95 Room Air General Appearance: No Apparent Distress, WD/WN Respiratory: Lungs Clear Cardiovascular: Regular Rate, Rhythm Neurologic/Psychiatric: Alert, Oriented x3 Allergies: Coded Allergies: Iodinated Contrast Media (Verified Allergy, Unknown, 09/27/19) cephalexin (Verified Allergy, Unknown, 09/27/19) fentanyl (Verified Allergy, Unknown, 09/27/19) ketamine (Verified Allergy, Unknown, 09/27/19) ketorolac (Verified Allergy, Unknown, 09/27/19) lamotrigine (Verified Allergy, Unknown, 09/27/19) levofloxacin (Verified Allergy, Unknown, 09/27/19) propoxyphene (Verified Allergy, Unknown, 09/27/19) sulfamethoxazole (Verified Allergy, Unknown, 09/27/19) trimethoprim (Verified Allergy, Unknown, 09/27/19) hydromorphone (Verified Adverse Reaction, Unknown, Nausea, 01/09/21) Per patient. Discharge Summary Date of Admission Jan 09, 2021 at 20:10 Date of Discharge Discharge Date: Jan 11, 2021 Admission Diagnosis Assessment: Chest pain no evidence of ACS Candidal esophagitis Recent teeth extraction Obesity Autoimmune disorder Plan: Move to 4 th floor Home meds CAYETANO Winter DO Jan 11, 2021 12:02
--- NOTE | 2021-01-11 12:17 | Progress Note ---
RAHUL JOHNSON, MED STUDENT 01/11/21 1217: Progress Note Kay Garcia is a 45 y/o F w/ PMH of Asthma, COPD, fibromyalgia, RA, and lupus who is presenting for chest pain. The chest pain started 5-7 days ago, is located mid sternum a little off to the left side. The pain is described as a squeezing sensation that waxes and wanes in intensity and is a 10/10 at its worst. The pain is made worse with cough or deep breathing. Troponin x2 and EKG were unremarkable in the ED. Ms. Garcia also had a heart cath and echo done with Dr. Angela on 09/2019 and both were unremarkable. While in the ED, Ms. Garcia was found to have oral thrush and tested positive for Influenza A. She was subsequently started on oseltamivir and fluconazole and transferred to the medicine team. She was also hypertensive on admission w/ BP 157/100. She reported that she had recently had an oral procedure done where her teeth were removed and she was subsequently placed on penicillin for. She also routinely takes doxycycline for her lupus facial rash. She also reported being on azithromycin for an unclear reason. While on the medicine service, Ms. Garcia's fluconazole and oseltamivir was continued and she was started on a nystatin oral swish. Her pain was subjectively not well controlled on Hydrocodone 7.5/325 mg. Chest pain was likely secondary to candidal esophagitis. On the day of discharge she did report right sided ear pain. On exam the tympanic membranes were clear but she did appear to have an acne like rash on the outside of her ear. She is being discharged with stable vitals, and improvement in her oral thrush but no apparent resolution. She is to continue fluconazole, diflucan, oseltamivir, and amoxicillin outpatient. She is also being discharged on oxycodone 10/325mg (15 tablets) for pain control of her oropharyngeal and likely esophageal candidiasis. Her primary care physician is Travis Richter NP from [facility]. She will need an outpatient endoscopy for candidal esophagitis resolution outpatient with her GI physician. She is to come back in if her thrush does not continue to improve, her chest pain returns and is associated with shortness of breath, sweating, resolves with rest, or is central. KETTY MCGRAW DO 01/12/21 0530: Supervisory-Addendum Brief Verification & Attestation Participated in pt care: history, MDM, physical Personally performed: exam, history, MDM, supervision of care Care discussed with: Medical Student Procedures: n/a Results interpretation: Verified all documentation Verification and Attestation of Medical Student E/M Service A medical student performed and documented this service in my presence. I reviewed and verified all information documented by the medical student and made modifications to such information, when appropriate. I personally performed the physical exam and medical decision making. Ketty Mcgraw, Jan 12, 2021,05:30 RAHUL JOHNSON, MED STUDENT Jan 11, 2021 12:17 KETTY MCGRAW DO Jan 12, 2021 05:30
[2021-01-11 13:14] VITALS: BP 125/72
== END 2021-01-11 13:00 | disposition home or self-care (01) ==
LOC: EDUNIT# 17:14 → ER 17:15 → CSD 20:10 → 4TH 01-10 15:30
PROVIDERS: ADMIT Internal Medicine; ATTEND Internal Medicine
DX: R07.9 Chest pain, unspecified (principal); J10.1 Influenza due to other identified influenza virus with other respiratory manifestations; I10 Essential (primary) hypertension; B37.0 Candidal stomatitis; E66.9 Obesity, unspecified; G43.909 Migraine, unspecified, not intractable, without status migrainosus; M06.9 Rheumatoid arthritis, unspecified; F41.9 Anxiety disorder, unspecified; F32.9 Major depressive disorder, single episode, unspecified; F17.210 Nicotine dependence, cigarettes, uncomplicated; Z79.899 Other long term (current) drug therapy; Z20.822 Contact with and (suspected) exposure to COVID-19; Z79.890 Hormone replacement therapy; Z91.041 Radiographic dye allergy status; Z88.2 Allergy status to sulfonamides; Z88.1 Allergy status to other antibiotic agents; Z88.8 Allergy status to other drugs, medicaments and biological substances; Z88.5 Allergy status to narcotic agent; Z90.710 Acquired absence of both cervix and uterus
CPT/HCPCS: 36415; 71045; 71250; 80053; 80061; 80306; 80320; 80329; 81000; 82150; 82550; 82553; 83605; 83615; 83690; 83735; 83874; 83880; 84439; 84443; 84484; 84703; 85025; 85379; 85610; 85652; 85730; 86141; 87040; 87635; 87804; 93005; 93041

== ENCOUNTER → 2021-03-02 | Outpatient (CLI) | payer MEDICAID ==
[~2021-03-02] MED LIST changes: +AMOX500C2 PO; +ATOR20TA66 PO; +DOXY100C2 PO; +FLUC100T6 PO; +FREM225S INJ; +FURO40TA4 PO; +HYDR-3817 PO; +IBUP-1780 PO; +ISOS30TA82 PO; +LEVE500T6 PO; +LIDO20SO23 PO; +METH-732 PO; +METH25VI57 INJ; +NALO12.52 PO; +NYST1000 PO; +OMEP40CA27 PO; +OSLT75C PO; +OXYC1TAB12 PO; +RAME8TAB24 PO; +SUCR1TAB PO
--- NOTE | 2021-03-02 10:36 | Diagnostic Imaging Report ---
PROCEDURE: MRI right joint lower extremity without contrast. TECHNIQUE: Multiplanar, multisequence non contrast-enhanced MRI of the right lower extremity was accomplished. INDICATION: Pain in the posterior right knee. No known injury. COMPARISON: None. FINDINGS: No acute fracture or dislocation is seen in the right knee. There is a small right knee joint effusion. There is mild lateral patellar tilt. Subcortical cyst-like change is noted at the median ridge of the patella. The signal on the fluid-sensitive imaging is somewhat low, may be due to use of the body coil from body habitus. The articular cartilage in the patellofemoral compartment demonstrates a small full-thickness defect at the median ridge. The articular cartilage in the medial compartment appears thinned with no definite full-thickness defects seen. No defects are seen in the lateral compartment. The medial meniscus and the lateral meniscus are difficult to evaluate due to the low signal. No definite tear is seen extending to the articular surface, however there does appear to be blunting of the medial meniscus body which could be due to a tear at the free edge. The anterior and posterior cruciate ligaments are intact. The medial collateral ligament demonstrates mild adjacent edema. The lateral collateral ligamentous complex appears to be intact. The extensor mechanism is intact. The medial and lateral retinacula are intact. Soft tissues about the knee are otherwise unremarkable. IMPRESSION: 1. Suboptimal examination due to motion artifact and decreased signal. 2. Questionable tear at the free edge of the medial meniscus body. 3. Low-grade sprain of the medial collateral ligament. 4. Small right knee joint effusion. 5. Mild cartilage loss in the right knee, particularly at the patella and medial compartment. Dictated by: Dictated on workstation # [id number]
== END ==
LOC: RAD 08:45
PROVIDERS: ATTEND Student in an Organized Health Care Education/Training Program
DX: S83.411A Sprain of medial collateral ligament of right knee, initial encounter (principal); X58.XXXA Exposure to other specified factors, initial encounter
CPT/HCPCS: 73721

== ENCOUNTER 2021-04-01 15:00 | Emergency (ER) | payer MEDICAID ==
[~2021-04-01] VITALS: Ht 165 cm; Wt 119.0 kg
[~2021-04-01 15:00] MED LIST changes: -OMEP40CA27 PO; +OMEP40CA6 PO
--- NOTE | 2021-04-01 15:25 | ED GI ---
General Chief Complaint: Abdominal/GI Problems Stated Complaint: CONSTIPATION X 1 MONTH Source of Information: Patient Exam Limitations: No Limitations History of Present Illness Date Seen by Provider: Apr 01, 2021 Time Seen by Provider: 15:24 Initial Comments To ER with constipation for 1 month despite trying mag citrate, enemas and suppositories at home. She is on Movantik for opioid-induced constipation. She is on Suboxone. Timing/Duration: 1-2 Days Severity/Quality: Moderate Location: Generalized Abdomen Radiation: No Radiation Activities at Onset: None Associated Symptoms: Nausea/Vomiting Allergies and Home Medications Allergies Coded Allergies: Iodinated Contrast Media (Verified Allergy, Unknown, 09/27/19) cephalexin (Verified Allergy, Unknown, 09/27/19) fentanyl (Verified Allergy, Unknown, 09/27/19) ketamine (Verified Allergy, Unknown, 09/27/19) ketorolac (Verified Allergy, Unknown, 09/27/19) lamotrigine (Verified Allergy, Unknown, 09/27/19) levofloxacin (Verified Allergy, Unknown, 09/27/19) propoxyphene (Verified Allergy, Unknown, 09/27/19) sulfamethoxazole (Verified Allergy, Unknown, 09/27/19) trimethoprim (Verified Allergy, Unknown, 09/27/19) hydromorphone (Verified Adverse Reaction, Unknown, Nausea, 01/09/21) Per patient. Home Medications Amoxicillin 500 Mg Capsule, 500 MG PO TID, (Reported) FILLED 01-03-2021 #30/10 DAY SUPPLY Atorvastatin Calcium 20 Mg Tablet, 20 MG PO HS, (Reported) Cetirizine HCl 10 Mg Capsule, 10 MG PO HS, (Reported) Clonazepam 0.5 Mg Tablet, 0.5 MG PO BID, (Reported) Doxycycline Hyclate 100 Mg Capsule, 100 MG PO BID, (Reported) Fluconazole 100 Mg Tablet, 100 MG PO DAILY, (Reported) FILLED 01-08-2021 #10 Fremanezumab-Vfrm 225 Mg/1.5 Ml Syringe, 225 MG INJ MONTHLY, (Reported) Furosemide 40 Mg Tablet, 40-80 MG PO DAILY PRN for FLUID RETENTION, (Reported) Ibuprofen 800 Mg Tablet, 800 MG PO TID PRN for PAIN-MILD (1-4), (Reported) Isosorbide Mononitrate 30 Mg Tab.er.24h, 30 MG PO DAILY, (Reported) Levetiracetam 500 Mg Tablet, 500 MG PO BID, (Reported) Levothyroxine Sodium 200 Mcg Tablet, 200 MCG PO DAILY, (Reported) Lidocaine HCl 15 Ml Solution, ML PO PRN PRN for SORE MOUTH, (Reported) Meclizine HCl 25 Mg Tablet, 25 MG PO TID, (Reported) Methocarbamol 750 Mg Tablet, 1,500 MG PO TID, (Reported) TAKES 2 (750MHG) TABS Methotrexate Sodium 25 Mg/1 Ml Vial, 0.6 MG INJ FRI Resume this medicine on 01/17/21 Prescribed by: CAYETANO MCGRAW on 01/11/21 1201 Naloxegol Oxalate 12.5 Mg Tablet, 12.5 MG PO DAILY, (Reported) Nystatin 100,000 Unit/1 Ml Oral.susp, 100,000 UNIT PO QID Prescribed by: CAYETANO MCGRAW on 01/11/21 1201 Omeprazole 40 Mg Capsule.dr, 40 MG PO DAILY, (Reported) Ondansetron HCl 4 Mg Tablet, 4 MG PO TID PRN for NAUSEA/VOMITING-1ST LINE, (Reported) Oseltamivir Phosphate 75 Mg Cap, 75 MG PO BID Prescribed by: CAYETANO MCGRAW on 01/11/21 1201 Oxycodone HCl/Acetaminophen 1 Each Tablet, 1 TAB PO Q8H PRN for PAIN-MODERATE Prescribed by: CAYETANO MCGRAW on 01/11/21 1201 Ramelteon 8 Mg Tablet, 8 MG PO HS, (Reported) Sucralfate 1 Gm Tablet, 1 GM PO QID, (Reported) Patient Home Medication List Home Medication List Reviewed: Yes Review of Systems Review of Systems Constitutional: see HPI EENTM: No Symptoms Reported Respiratory: No Symptoms Reported Cardiovascular: No Symptoms Reported Gastrointestinal: See HPI, Constipated Genitourinary: No Symptoms Reported Musculoskeletal: no symptoms reported Skin: no symptoms reported Psychiatric/Neurological: No Symptoms Reported Endocrine: No Symptoms Reported Hematologic/Lymphatic: No Symptoms Reported Past Ufmxnoz-Cqocch-Unmcob Hx Immunizations Up To Date Tetanus Booster (TDap): More than 5yrs PED Vaccines UTD: Yes Seasonal Allergies Seasonal Allergies: No Past Medical History Surgeries: Yes (THYMOMA REMOVALX2, INTERNAL MONITOR, LT SHOULDER, ORAL SURGERY) Appendectomy, Bladder Surgery, Hysterectomy, Orthopedic, Tubal Ligation Respiratory: Yes Asthma, COPD Cardiac: Yes (SVT;CLAIMS "5 HEART ATTACKS"NORMAL EKG'S/NORMAL CARD. 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 Disorders: Menstrual Problems INVESTMENT DIRECTOR History: Hysterectomy, Tubal Ligation Genitourinary: Yes Kidney Stones Gastrointestinal: Yes (OPOID INDUCED CONSTIPATION) Irritable Bowel Musculoskeletal: Yes (LUPUS) Fibromyalgia, Rheumatoid Arthritis Endocrine: Yes (AMMON'S; SJOGREN'S; THYMUS REMOVED; OBESITY) Hypothyroidsim, Lupus HEENT: Yes (POOR DENTITION) Cancer: No Psychosocial: Yes Sleep Difficulties, Anxiety, Depression Integumentary: No Blood Disorders: No Family Medical History No Pertinent Family Hx NC Physical Exam Vital Signs Vital Signs - First Documented 04/01/21 15:19 Temp 36.1 Pulse 80 Resp 20 B/P (MAP) 155/99 (117) Pulse Ox 96 O2 Delivery Room Air Capillary Refill : Height/Weight/BMI Height: '" Weight: lbs. oz. kg; 53.62 BMI Method: General Appearance: WD/WN, no apparent distress Respiratory: no respiratory distress, no accessory muscle use Cardiovascular: regular rate, rhythm, no murmur Gastrointestinal: normal bowel sounds, non tender, soft Extremities: normal range of motion, non-tender Neurologic/Psychiatric: alert, normal mood/affect, oriented x 3 Skin: normal color, warm/dry Progress/Results/Core Measures Results/Orders Lab Results Laboratory Tests Test 04/01/21 15:17 04/01/21 15:30 Range/Units Urine Color YELLOW Urine Clarity CLEAR Urine pH 6.5 5-9 Urine Specific Alexis 1.010 L 1.016-1.022 Urine Protein NEGATIVE NEGATIVE Urine Glucose (UA) NEGATIVE NEGATIVE Urine Ketones NEGATIVE NEGATIVE Urine Nitrite POSITIVE H NEGATIVE Urine Bilirubin NEGATIVE NEGATIVE Urine Urobilinogen 0.2 < = 1.0 MG/DL Urine Leukocyte Esterase TRACE H NEGATIVE Urine RBC (Auto) NEGATIVE NEGATIVE Urine RBC NONE /HPF Urine WBC 0-2 /HPF Urine Squamous Epithelial Cells 0-2 /HPF Urine Crystals NONE /LPF Urine Bacteria MODERATE H /HPF Urine Casts NONE /LPF Urine Mucus NEGATIVE /LPF Urine Culture Indicated YES Urine Opiates Screen NEGATIVE NEGATIVE Urine Oxycodone Screen NEGATIVE NEGATIVE Urine Methadone Screen NEGATIVE NEGATIVE Urine Propoxyphene Screen NEGATIVE NEGATIVE Urine Barbiturates Screen NEGATIVE NEGATIVE Ur Tricyclic Antidepressants Screen NEGATIVE NEGATIVE Urine Phencyclidine Screen NEGATIVE NEGATIVE Urine Amphetamines Screen NEGATIVE NEGATIVE Urine Methamphetamines Screen NEGATIVE NEGATIVE Urine Benzodiazepines Screen NEGATIVE NEGATIVE Urine Cocaine Screen NEGATIVE NEGATIVE Urine Cannabinoids Screen NEGATIVE NEGATIVE White Blood Count 7.8 4.3-11.0 10^3/uL Red Blood Count 4.48 3.80-5.11 10^6/uL Hemoglobin 12.5 11.5-16.0 g/dL Hematocrit 42 35-52 % Mean Corpuscular Volume 93 80-99 fL Mean Corpuscular Hemoglobin 28 25-34 pg Mean Corpuscular Hemoglobin Concent 30 L 32-36 g/dL Red Cell Distribution Width 17.6 H 10.0-14.5 % Platelet Count 260 130-400 10^3/uL Mean Platelet Volume 10.1 9.0-12.2 fL Immature Granulocyte % (Auto) 0 % Neutrophils (%) (Auto) 62 42-75 % Lymphocytes (%) (Auto) 29 12-44 % Monocytes (%) (Auto) 5 0-12 % Eosinophils (%) (Auto) 3 0-10 % Basophils (%) (Auto) 1 0-10 % Neutrophils # (Auto) 4.8 1.8-7.8 10^3/uL Lymphocytes # (Auto) 2.3 1.0-4.0 10^3/uL Monocytes # (Auto) 0.4 0.0-1.0 10^3/uL Eosinophils # (Auto) 0.2 0.0-0.3 10^3/uL Basophils # (Auto) 0.0 0.0-0.1 10^3/uL Immature Granulocyte # (Auto) 0.0 0.0-0.1 10^3/uL My Orders Orders - CHUCK FELIX APRN Ua Culture If Indicated (04/01/21 15:18) Drug Screen Stat (Urine) (04/01/21 15:18) Acute Abd Series (04/01/21 15:18) Cbc With Automated Diff (04/01/21 15:22) Comprehensive Metabolic Panel (04/01/21 15:22) Magnesium (04/01/21 15:22) Thyroid Stimulating Hormone (04/01/21 15:22) Free T4 (Free Thyroxine) (04/01/21 15:22) Urine Culture (04/01/21 15:17) Vital Signs/I&O 04/01/21 15:19 Temp 36.1 Pulse 80 Resp 20 B/P (MAP) 155/99 (117) Pulse Ox 96 O2 Delivery Room Air Diagnostic Imaging Diagonstic Imaging: CT Comments NAME: LAYNE SPEARS [facility] REC#: [id number] PT STATUS: REG ER : 1975 PHYSICIAN: CHUCK FELIX APRN ADMIT DATE: 04/01/21/ER Draft Date of Exam:04/01/21 ACUTE ABD SERIES INDICATION: Constipation. TECHNIQUE: Single view of chest with supine and upright radiographs of the abdomen. CORRELATION STUDY: Chest 01/09/2021. FINDINGS: Poststernotomy change. Loop recorder device over the left heart. Heart size is borderline enlarged. Vasculature overall within normal limits. No consolidating infiltrate. Supine and upright radiographs of the abdomen demonstrates the bowel gas pattern to be unremarkable and without evidence for obstruction. Moderate stool within the colon. No large fecal impaction. No free air is seen under the diaphragms. No pathologic intraabdominal calcifications. Question pars articularis defect on the left L5 level. IMPRESSION: 1. Negative for acute cardiopulmonary abnormality. 2. Moderate stool throughout the colon. No large fecal impaction or evidence for obstruction. Dictated on workstation # [id number] Dict: 04/01/21 1547 Trans: 04/01/21 1551 [facility] [id number] Interpreted by: SHAYY CARVAJAL DO Electronically signed by: Departure Impression Primary Impression: Chronic, continuous use of opioids Additional Impression: Constipation Disposition: HOME, SELF-CARE Condition: Stable Departure-Patient Inst. Decision time for Depature: 15:55 Referrals: [facility] (PCP/Family) Primary Care Physician Patient Instructions: No Instuctions Given Add. Discharge Instructions: . Mix 1 capful of MiraLAX powder into a glass of water and drink 1 of these every 20 minutes until you have a bowel movement. All discharge instructions reviewed with patient and/or family. Voiced understanding. Scripts Peg/Electrolytes (Golytely Solution) 4,000 Ml Soln 4000 ML PO UD, #1 EA Prov: CHUCK FELIX APRN 04/01/21 CHUCK FELIX APRN Apr 01, 2021 15:25
[2021-04-01 15:27] LABS: BILIRUBIN,URINE NEGATIVE (NEGATIVE); CLARITY,URINE CLEAR; COLOR,URINE YELLOW; GLUCOSE, URINE (UA) NEGATIVE (NEGATIVE); KETONES,URINE NEGATIVE (NEGATIVE); LEUKOCYTE ESTERASE ,URINE TRACE (NEGATIVE); NITRITE,URINE POSITIVE (NEGATIVE); PH,URINE 6.5 (5-9); PROTEIN,URINE NEGATIVE (NEGATIVE)
[2021-04-01 15:39] LABS: BASOPHILS % (AUTO) 1 % (0-10); EOSINOPHILS # (AUTO) 0.2 10^3/uL (0.0-0.3); EOSINOPHILS % (AUTO) 3 % (0-10); HEMATOCRIT 42 % (35-52); HEMOGLOBIN 12.5 g/dL (11.5-16.0); LYMPHOCYTES # (AUTO) 2.3 10^3/uL (1.0-4.0); LYMPHOCYTES % (AUTO) 29 % (12-44); MEAN CORPUSCULAR HEMOGLOBIN 28 pg (25-34); MEAN CORPUSCULAR HGB CONC 30 g/dL (32-36); MEAN CORPUSCULAR VOLUME 93 fL (80-99); MEAN PLATELET VOLUME 10.1 fL (9.0-12.2); MONOCYTES # (AUTO) 0.4 10^3/uL (0.0-1.0); MONOCYTES % (AUTO) 5 % (0-12); NEUTROPHILS # (AUTO) 4.8 10^3/uL (1.8-7.8); NEUTROPHILS % (AUTO) 62 % (42-75); PLATELET COUNT 260 10^3/uL (130-400); WHITE BLOOD COUNT 7.8 10^3/uL (4.3-11.0)
[2021-04-01 15:45] LABS: AMPHETAMINE SCREEN, URINE NEGATIVE (NEGATIVE); BARBITURATE SCREEN URINE NEGATIVE (NEGATIVE); BENZODIAZEPINES SCREEN URINE NEGATIVE (NEGATIVE); CANNABINOID SCREEN, URINE NEGATIVE (NEGATIVE); COCAINE SCREEN URINE NEGATIVE (NEGATIVE); METHADONE STAT NEGATIVE (NEGATIVE); METHAMPHETAMINE SCREEN URINE S NEGATIVE (NEGATIVE); OPIATE SCREEN URINE NEGATIVE (NEGATIVE); OXYCODONE STAT NEGATIVE (NEGATIVE); PROPOXYPHENE STAT NEGATIVE (NEGATIVE); TRICYCLIC ANTIDEPRESSANTS SCRE NEGATIVE (NEGATIVE)
[2021-04-01 15:49] LABS: BACTERIA,URINE MODERATE /HPF; SQUAMOUS EPITHELIAL CELL,UR 0-2 /HPF; WBC,URINE 0-2 /HPF
--- NOTE | 2021-04-01 15:51 | Diagnostic Imaging Report ---
INDICATION: Constipation. TECHNIQUE: Single view of chest with supine and upright radiographs of the abdomen. CORRELATION STUDY: Chest 01/09/2021. FINDINGS: Poststernotomy change. Loop recorder device over the left heart. Heart size is borderline enlarged. Vasculature overall within normal limits. No consolidating infiltrate. Supine and upright radiographs of the abdomen demonstrates the bowel gas pattern to be unremarkable and without evidence for obstruction. Moderate stool within the colon. No large fecal impaction. No free air is seen under the diaphragms. No pathologic intraabdominal calcifications. Question pars articularis defect on the left L5 level. IMPRESSION: 1. Negative for acute cardiopulmonary abnormality. 2. Moderate stool throughout the colon. No large fecal impaction or evidence for obstruction. Dictated by: Dictated on workstation # [id number]
[2021-04-01 15:54] LABS: ALBUMIN 3.9 GM/DL (3.2-4.5); CHLORIDE 105 MMOL/L (98-107); POTASSIUM 4.3 MMOL/L (3.6-5.0); SODIUM 141 MMOL/L (135-145)
[2021-04-01 15:55] LABS: CALCIUM 8.2 MG/DL (8.5-10.1)
[2021-04-01 15:56] LABS: GLUCOSE 105 MG/DL (70-105)
[2021-04-01 15:57] LABS: TOTAL PROTEIN 6.9 GM/DL (6.4-8.2)
[2021-04-01] MEDS ORDERED: CLT4KB PO (15:57)
[2021-04-01 15:58] LABS: BILIRUBIN,TOTAL 0.2 MG/DL (0.1-1.0); CARBON DIOXIDE 27 MMOL/L (21-32)
[2021-04-01 16:00] LABS: ALKALINE PHOSPHATASE 120 U/L (40-136); CREATININE SERUM 0.74 MG/DL (0.60-1.30); GFR ESTIMATED > 60
[2021-04-01] MEDS ORDERED: METHYLNALTREXONE 12 MG/0.6 ML (RELISTOR) VIAL SQ ONE (16:00)
[2021-04-01 16:01] LABS: BUN/CREATININE RATIO 12
[2021-04-01 16:03] LABS: ALANINE AMINOTRANSFERASE 23 U/L (0-55); MAGNESIUM 2.3 MG/DL (1.6-2.4)
[2021-04-01 16:17] LABS: FREE T4 (FREE THYROXINE) 0.82 NG/DL (0.70-1.48)
[2021-04-01 16:40] VITALS: BP 136/88
== END 2021-04-01 16:43 | disposition home or self-care (01) ==
LOC: EDUNIT# 15:00 → ER 15:02
DX: F11.90 Opioid use, unspecified, uncomplicated (principal); K59.00 Constipation, unspecified; J44.9 Chronic obstructive pulmonary disease, unspecified; I25.2 Old myocardial infarction; G40.909 Epilepsy, unspecified, not intractable, without status epilepticus; E03.9 Hypothyroidism, unspecified; F41.9 Anxiety disorder, unspecified; Z79.899 Other long term (current) drug therapy; Z79.890 Hormone replacement therapy
CPT/HCPCS: 36415; 74022; 80053; 80306; 81000; 83735; 84439; 84443; 85025; 87077; 87088; 87186

== ENCOUNTER → 2021-06-15 | Outpatient (CLI) | payer MEDICAID ==
[~2021-06-15] MED LIST changes: +CLT4KB PO; -DOXY100C2 PO; +DOXY100C5 PO
== END ==
LOC: CARD 14:00
PROVIDERS: ATTEND Internal Medicine Cardiovascular Disease
DX: I11.9 Hypertensive heart disease without heart failure (principal); I25.10 Atherosclerotic heart disease of native coronary artery without angina pectoris
CPT/HCPCS: 93306

== ENCOUNTER 2021-09-11 14:31 | Emergency (ER) | payer MEDICAID ==
[~2021-09-11] VITALS: Ht 165.1 cm; Wt 119.3 kg
--- OUTSIDE RECORDS SUMMARY | 2021-09-11 14:35 | XMS REPORT | Clinical Summary ---
Author Author [facility] Organization [facility] Address Unknown Phone Unavailable Care Team Providers Care Mainframe Programmer Analyst Name Role Phone Carlos Richter NP PCP Source Comments Some departments are not documenting in the electronic medical record. If you d o not see the information that you expected, contact Release of Information in [facility] [employer] Information Management department at [phone] for further assistan ce in locating additional records.[facility] Allergies Comments Active Allergy Reactions Severity Noted Date Sulfamethoxazole-Trimetho UNKNOWN Low 05/2016 prim Iodinated Contrast Media UNKNOWN Low 07/31 Hydromorphone UNKNOWN Low 07/31/2016 Levofloxacin UNKNOWN Low 07/31/2016 Ketorolac UNKNOWN Low 07/31/2016 Medications End Date Status Medication Sig Dispensed Refills Start Date Active furosemide (LASIX PO) Take 60 mg by 0 mouth daily. Active lidocaine (LIDODERM) 5 % 0 topical patch Active OXYGEN-AIR DELIVERY Apply into 0 SYSTEMS MISC nose as directed. Active diclofenac (VOLTAREN) 1 % 0 topical gel Active albuterol sulfate (PROAIR Inhale 2 0 HFA) 90 mcg/actuation puffs by aerosol inhaler mouth into the lungs every 4 hours as needed. Active atorvastatin (LIPITOR) 20 Take 20 mg by 0 03/22 mg tablet mouth daily. 0 Active cetirizine (ZYRTEC) 10 mg 0 tablet 0 Active dilTIAZem HCL (CARDIZEM) Take 120 mg 0 120 mg tablet by mouth daily. Active fluticasone propionate Apply 2 0 (FLONASE) 50 sprays into mcg/actuation nasal nose as spray, suspension directed daily. Active levothyroxine (SYNTHROID) 0 200 mcg tablet 0 Active methocarbamoL (ROBAXIN) 0 750 mg tablet 0 Active MOVANTIK 12.5 mg tablet 0 0 Active nitroglycerin (NITROSTAT) 0 0.4 mg tablet [address] (PRILOSEC) 0 40 mg capsule 0 Active ondansetron (ZOFRAN) 4 mg 0 tablet 0 Active ramelteon (ROZEREM) 8 mg 0 tab 0 Active sertraline (ZOLOFT) 100 0 mg tablet 0 Active DOXYCYCLINE HYCLATE PO Take 100 mg 0 by mouth. Active clindamycin (CLINDA-DERM) Apply 0 1 % topical solution topically to affected area twice daily. Active Insulin Syringe-Needle For 12 each 1 U-100 (BD INSULIN SYRINGE Methotrexate 1 ULTRA-FINE) 1 mL 31 gauge use x 02/04 syrg Active folic acid (FOLVITE) 1 mg Take one 90 tablet 1 tablet tablet by 1 mouth daily. Active amoxicillin (AMOXIL) 500 Take 500 mg 0 mg capsule by mouth every 12 hours. Active buprenorphine-naloxone Place 1 0 (SUBOXONE) 8-2 mg tablet under sublingual tablet tongue daily. Active ketoconazole (NIZORAL) 2 Apply 0 % topical cream topically to affected area daily. Active clobetasoL (TEMOVATE) Apply 0 0.05 % topical cream topically to affected area twice daily. Active mupirocin (BACTROBAN) 2 % Apply 0 topical ointment topically to affected area three times daily. Active methotrexate (presrv) 25 Inject 1 mL 4 mL 1 mg/mL injection under the 1 skin every 7 days. 08/27/2021 Discontinued (Reorder) methotrexate sodium Inject 0.6 mL 4 mL 1 11/20 (METHOTREXATE (PRESRV)) under the 1 25 mg/mL injection skin every 7 days. Active Problems Problem Noted Date Oropharyngeal dysphagia 07/31/2016 Encounters Care Team Description Date Type Specialty Catarino Sigala MD long-term current use of immunosuppressi ve drug (Primary Dx) 08/27/2021 Office Visit Rheumatology Telehealth Olga House MA long term care administrator current use of immunosuppressi ve drug 08/22/2021 Orders Only Rheumatology from Last 3 Months Immunizations Name Administration Dates Next Due Surgical History Surgery Date Site/Laterality Comments HX APPENDECTOMY HX TUBAL LIGATION HX HYSTERECTOMY KIDNEY SURGERY SHOULDER SURGERY Medical History Medical History Date Comments Anxiety disorder Asthma 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) Cancer (HCC) Generalized headaches High cholesterol Hypertension Hypothyroid Migraines Myocardial infarction (HCC) Seasonal allergic reaction Seizures (HCC) Strep throat Tobacco abuse Ulcer Family History Relation Name Status Comments Father Mother Alive Social History Date Tobacco Use Types Packs/Day Years Used Current Every Day Smoker Cigarettes 2 Smokeless Tobacco: Never Used Comments Alcohol Use Standard Drinks/Week Not Currently 0 (1 standard drink = 0.6 o z pure alcohol) Sex Assigned at Date Recorded Female 03/29/2020 10:16 AM CDT Last Filed Vital Signs Reading Time Taken Comments Vital Sign 126/87 12/01/2020 12:58 PM [facility] Blood Pressure 88 12/01/2020 12:58 PM [facility] Pulse 36.6 C (97.9 F) 12/01/2020 12:58 PM [facility] Temperature 18 12/01/2020 12:58 PM [facility] Respiratory Rate 100% 12/01/2020 12:58 PM [facility] Oxygen Saturation - - Inhaled Oxygen Concentration 127 kg (280 lb) 12/01/2020 12:58 PM [facility] Weight 165.1 cm (5' 5") 12/01/2020 12:58 PM [facility] Height 46.59 12/01/2020 12:58 PM [facility] Body Mass Index Plan of Treatment Health Maintenance Due Date Last Done Comments HIV SCREENING 1989 DTAP/TDAP VACCINES (1 - 1992 Tdap) PHYSICAL (COMPREHENSIVE) 1992 EXAM CERVICAL CANCER SCREENING 1995 BREAST CANCER SCREENING 2014 COVID-19 VACCINE (3 - 02/05/2021 01/08/2021, Moderna risk 4-dose 12/08/2020 series) INFLUENZA VACCINE 04/22/2021 HEPATITIS C SCREENING Completed 04/04/2020 Procedures Comments Procedure Name Priority Date/Time Associated Diag nosis CBC AND DIFF Routine 08/09/2021 long term care administrator curre nt use of immunosuppressive drug COMPREHENSIVE METABOLIC Routine 08/09/2021 Long t erm current use of PANEL immunosuppressive drug from Last 3 Months Results * CBC AND DIFF (08/09/2021) White Blood OTHER OUTSIDE Cells LAB RBC OTHER OUTSIDE LAB Hemoglobin OTHER OUTSIDE LAB Hematocrit OTHER OUTSIDE LAB MCV OTHER OUTSIDE LAB MCH OTHER OUTSIDE LAB MCHC OTHER OUTSIDE LAB Platelet Count OTHER OUTSIDE LAB MPV OTHER OUTSIDE LAB RDW OTHER OUTSIDE LAB Neutrophils OTHER OUTSIDE LAB Absolute OTHER OUTSIDE Neutrophil LAB Count Lymphocytes OTHER OUTSIDE LAB Absolute Lymph OTHER OUTSIDE Count LAB Monocytes OTHER OUTSIDE LAB Absolute OTHER OUTSIDE Monocyte Count LAB Eosinophil OTHER OUTSIDE LAB Absolute OTHER OUTSIDE Eosinophil LAB Count Basophils OTHER OUTSIDE LAB Absolute OTHER OUTSIDE Basophil Count LAB Atypical Lym OTHER OUTSIDE LAB Metamyelocyte OTHER OUTSIDE LAB Myelocyte OTHER OUTSIDE LAB Promyelocyte OTHER OUTSIDE LAB Blast OTHER OUTSIDE LAB RBC Morph OTHER OUTSIDE LAB WBC Morphology OTHER OUTSIDE LAB Specimen Blood - Blood Narrative Performing Organization Address City/State/ZIP Code P jon Number OTHER OUTSIDE LAB * COMPREHENSIVE METABOLIC PANEL (08/09/2021) Sodium OTHER OUTSIDE LAB Potassium OTHER OUTSIDE LAB Chloride OTHER OUTSIDE LAB CO2 OTHER OUTSIDE LAB Blood Urea OTHER OUTSIDE Nitrogen LAB Creatinine OTHER OUTSIDE LAB Glucose OTHER OUTSIDE LAB Calcium OTHER OUTSIDE LAB Total Protein OTHER OUTSIDE LAB Total Bilirubin OTHER OUTSIDE LAB Albumin OTHER OUTSIDE LAB Alk Phosphatase OTHER OUTSIDE LAB AST (SGOT) OTHER OUTSIDE LAB ALT (SGPT) OTHER OUTSIDE LAB eGFR Non OTHER OUTSIDE LAB [place]e eGFR OTHER OUTSIDE [place] LAB Anion Gap OTHER OUTSIDE LAB Specimen Blood - Blood Narrative Performing Organization Address City/State/ZIP Code P jon Number OTHER OUTSIDE LAB from Last 3 Months Insurance Type Payer Benefit Subscriber ID Effective Phone Address Plan / Dates Group Medicaid [facility] MEDICAID [facility] [id number] [address] [facility] [address] [place] [address] Advance Directives 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
--- OUTSIDE RECORDS SUMMARY | 2021-09-11 14:36 | XMS REPORT | Encounter Summary ---
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 [place] [address] Social History Date Tobacco Use Types Packs/Day Years Used Current Every Day Smoker Cigarettes 2 Smokeless Tobacco: Never Used Comments Alcohol Use Standard Drinks/Week Not Currently 0 (1 standard drink = 0.6 o z pure alcohol) Sex Assigned at Date Recorded Female 03/29/2020 10:16 AM CDT documented as of this encounter Functional Status Date of Assessment Functional Status Response 04/09/2021 Does the patient have a hearing impairment: No 04/09/2021 Does the patient have a visual impairment: Yes 04/09/2021 Does the patient have impaired ambulation: No 04/09/2021 Does the patient have an activity of daily living No (ADL) impairment: 04/09/2021 Does the patient have an instrumental activity of No daily living (IADL) impairment: Date of Assessment Cognitive Status Response 04/09/2021 Does the patient have a cognitive impairment: No documented as of this encounter Plan of Treatment Not on filedocumented as of this encounter Procedures Comments Procedure Name Priority Date/Time Associated Diag nosis CBC AND DIFF Routine 08/09/2021 [facility] curre nt use of immunosuppressive drug COMPREHENSIVE METABOLIC Routine 08/09/2021 Long t erm current use of PANEL immunosuppressive drug documented in this encounter Results * CBC AND DIFF (08/09/2021) White [...] OUTSIDE LAB eGFR Non OTHER OUTSIDE LAB [place] eGFR OTHER OUTSIDE [place] LAB Anion Gap OTHER OUTSIDE LAB Specimen Blood - Blood Narrative Performing Organization Address City/State/ZIP Code P jon Number OTHER OUTSIDE LAB documented in this encounter Visit Diagnoses Diagnosis [facility] current use of immunosuppress rosey drug documented in this encounter Additional Health Concerns Noted Time Assessment 04/09/2021 8:17 AM CDT PHQ-2 Depression Total Score: 0 documented as of this encounter Care Teams Start Date End Date Movement Therapist Relationship Specialty 03/29/20 Carlos Richter NP PCP - General Nurse [address] [facility] [place] [address] documented as of this encounter
--- OUTSIDE RECORDS SUMMARY | 2021-09-11 14:36 | XMS REPORT | Encounter Summary ---
Author Author [facility] Organization [facility] Address Unknown Phone Unavailable Care Team Providers Care Core Paster Name Role Phone Carlos Richter RESOURCES REPRESENTATIVE PCP Reason for Visit * Reason Comments Gregory's Encounter Details Care Team Description Date Type Department Catarino Sigala MD [address] [place] [address] long-term current use of immunosuppressi ve drug (Primary Dx) 08/27/2021 Office Visit Rheumatology: [facility] [address] [place] [address] Social History Date Tobacco Use [...] impairment: No documented as of this encounter Ordered Prescriptions Start Date End Date Prescription Sig Dispensed Refills 08/27/2021 methotrexate (presrv) 25 Inject 1 mL 4 mL 1 mg/mL injection under the skin every 7 days. documented in this encounter Progress Notes * Catarino Sigala MD - 08/27/2021 8:40 AM MASH GRINDER Obtained patient's verbal consent to treat them and their agreement to MALIKA balderrama policy and NPP via this telehealth visit during the Coronavirus Public [facility] Emergency Kay is a 45 year old female here for a follow-up visit Chief complaint: Management of Sjogren's syndrome Interval history: Last seen in March at which time we resume methotrexate for management of inflamm atory arthritis in the context of Sjogren's, she now tells me that 2 weeks ago s he was seen by a vault installer who diagnosed her with hidradenitis suppurativa, she was started on prednisone 10 mg daily and was advised to remain on this for 6 weeks, she also started some antibiotics for secondary infection, prednisone h as not helped her joint pain much, she has been compliant with methotrexate but reports 30 pound weight loss in 1 month despite normal appetite, no oral ulcers are reported, no abdominal pain, she has not discussed her weight loss with any other provider, she tells me that Humira was considered for potential management of her HS She previously had excellent response when she was switched from hydrocodone to Suboxone in terms of her generalized pain No other complaints Follow-up laboratory testing in July revealed acceptable CBC and CMP She now reports Past Medical History: Reviewed in O2 Past surgical History: Reviewed in O2 Family History: Family history reviewed, Daughter was diagnosed with Sjogren's syndrome and Sjo gren's syndrome Social History: Reviewed in O2 Allergies: Reviewed in the records Current medication list: Reviewed Assessment: 1. Sjogren's syndrome, the symptoms include joint pain, fatigue, positive Hashim padmini and SSA and EMELIA Rest of the serologies and none and a encouraged her to contact the lab to reque st the records to be sent to us as soon as possible She had good response to hydroxychloroquine but had to stop due to GI side effec ts Leflunomide was not effective We started methotrexate in November 2020, therapy was interrupted in January due to inf luenza B infection, in which she reports as shingles, treated in the hospital fo r 2 days before discharge, we resumed therapy with significant improvement of he r joint pain, however more recently she has been reporting recurrent pain and 2 hours of morning stiffness involving her hands and shoulders, we elected to incr ease the dose of methotrexate today, we will use 25 mg weekly dose, she was advi sed to remain on therapy with methotrexate despite the recent initiation of anti biotics for management of hidradenitis suppurativa, diagnosed about 2 weeks ago, and was treated also with prednisone 10 mg daily. At this point in time I told her that adalimumab remains an option not only for her HS but also her arthritis, we will explore this in light of her response to the higher dose of methotrexate 2. Fibromyalgia syndrome Treatment options are limited which we previously discussed Recently she was started on Suboxone after she had stopped hydrocodone and clona zepam, her pain significantly improved since 3. Recent diagnosis of hidradenitis suppurativa as above 4. Yudith's thyroiditis 5. Her daughter was diagnosed with Sjogren's and SLE and is on hydroxychloroquin e 6. Previously she was given prednisone for management of edema but did not find that to be helpful in managing her pain or fatigue 7. Hydroxychloroquine provided some relief of pain cause GI disturbances, leflu nomide was not effective Plan: Increase Methotrexate to 25 mg weekly May hold folic acid for now given her insurance company did not cover therapy, w e may explore using [id number] multivitamins containing folic acid if she reports side effects CBC CMP monthly Consider adalimumab moving forward Return to the clinic in 3 months Catarino Sigala MD Because this dictation was prepared with voice recognition software, there remai ns a potential for typographical errors or incorrect word choices by the system. We apologize for any inadvertent inconvenience from such an error. GRINDER documented in this encounter Miscellaneous Notes * Patient Instructions - Catarino Sigala MD - 08/27/2021 8:40 AM MASH GRINDER Increase methotrexate to 25 mg/week May try to stop folic acid since your insurance company did not cover it, but se e what happens, if you notice side effects, we may have to give you [id number] nter multivitamins that have some folic acid in them Monthly CBC and CMP for now, the nurse will send you the orders via MyChart We will consider Humira moving forward, this can be prescribed by your dermatolo gist as well, from my perspective I would use it for the joint pain if needed Follow-up with me in about 3 months in person for a full examination GRINDER documented in this encounter Plan of Treatment Order Schedule Name Type Priority Associated Diag noses Every 4 Weeks Auto for 4 Occurrences sta rting 08/27/2021 until 08/27/2022 CBC AND DIFF Lab Routine truck terminal manager curre nt use of immunosuppressive drug Every 4 Weeks Auto for 4 Occurrences sta rting 08/27/2021 until 08/27/2022 COMPREHENSIVE METABOLIC Lab Routine Long t erm current use of PANEL immunosuppressive drug documented as of this encounter Visit Diagnoses Diagnosis truck terminal manager current use of immunosuppress rosey drug - Primary documented in this encounter Discontinued Medications Start Date End Date Medication Sig Discontinue Reason 12/05/2020 08/27/2021 methotrexate sodium Inject 0.6 Reorder (METHOTREXATE (PRESRV)) mL under the 25 mg/mL injection skin every 7 days. documented as of this encounter Historical Medications * This list may reflect changes made after this encounter. Start Date End Date Medication Sig Dispensed Refills mupirocin (BACTROBAN) 2 % Apply 0 topical ointment topically to affected area three times daily. clobetasoL (TEMOVATE) Apply 0 0.05 % topical cream topically to affected area twice daily. ketoconazole (NIZORAL) 2 Apply 0 % topical cream topically to affected area daily. buprenorphine-naloxone Place 1 0 (SUBOXONE) 8-2 mg tablet under sublingual tablet tongue daily. amoxicillin (AMOXIL) 500 Take 500 mg 0 mg capsule by mouth every 12 hours. added in this encounter Additional Health Concerns Noted Time Assessment 08/27/2021 8:28 AM MASH GRINDER A fall risk assessment has been complet ed for the patient 04/09/2021 8:17 AM CDT PHQ-2 Depression Total Score: 0 documented as of this encounter Care Teams Start Date End Date Core Paster Relationship Specialty 03/29/20 Carlos Richter NP PCP - General Nurse [address] [place] [id number] documented as of this encounter
[2021-09-11 14:38] VITALS: BP 168/90
== END 2021-09-11 14:46 | disposition left against medical advice (07) ==
LOC: EDUNIT# 14:31 → ER 14:32
DX: J02.9 Acute pharyngitis, unspecified (principal)
CPT/HCPCS: 99285

== ENCOUNTER → 2021-09-11 | Outpatient (CLI) | payer MEDICAID ==
--- NOTE | 2021-09-11 17:46 | Diagnostic Imaging Report ---
PROCEDURE: CT chest without contrast. TECHNIQUE: Multiple contiguous axial images were obtained through the chest without the use of intravenous contrast. Auto Exposure Controls were utilized during the CT exam to meet ALARA standards for radiation dose reduction. INDICATION: Hemoptysis. COMPARISON: January 09, 2021, and May 31, 2016. FINDINGS: Postsurgical changes of a median sternotomy are again identified. Postsurgical changes within the anterior mediastinum are again seen. Loop recorder is noted within the anterior left chest. No significant adenopathy within the chest. No aneurysmal dilatation of the thoracic aorta. The heart is within normal limits in size. No pericardial effusion. No significant pleural effusion. No significant hiatal hernia. The trachea is patent. No pneumothorax. Subpleural 0.4 cm left lower lobe pulmonary nodule is unchanged since 2016 and benign. Minimal lingular scarring and/or atelectasis. 0.3 cm left upper lobe pulmonary nodule is unchanged since 2016 and benign. The right lung is clear of suspicious pulmonary nodule or mass. The liver is enlarged. Visualized portions of the unenhanced upper abdomen are otherwise unremarkable. No acute osseous abnormality. IMPRESSION: No acute abnormality. Tiny 0.4 cm pulmonary nodules are present and unchanged since 2016, therefore benign. No new pulmonary nodule. Hepatomegaly, partially visualized. Additional postsurgical and chronic findings as above. Dictated by: Dictated on workstation # [id number]
== END ==
LOC: RAD 14:15
PROVIDERS: ATTEND Internal Medicine Critical Care Medicine
DX: R91.8 Other nonspecific abnormal finding of lung field (principal); R16.0 Hepatomegaly, not elsewhere classified; R04.2 Hemoptysis; F17.210 Nicotine dependence, cigarettes, uncomplicated; Z98.890 Other specified postprocedural states
CPT/HCPCS: 71250

== ENCOUNTER → 2021-10-31 | Outpatient (CLI) | payer MEDICAID | LOC: LABNPT 06:57 | PROVIDERS: ATTEND Internal Medicine Critical Care Medicine | DX: Z53.9 Procedure and treatment not carried out, unspecified reason (principal) ==

== ENCOUNTER 2021-11-15 10:44 | Emergency (ER) | payer MEDICAID ==
[~2021-11-15] VITALS: Ht 165 cm; Wt 124.0 kg
[~2021-11-15 10:44] MED LIST changes: +FLUC100T10 PO; -FLUC100T6 PO
--- NOTE | 2021-11-15 10:57 | ED General ---
General Chief Complaint: General Problems/Pain Stated Complaint: BACK PAIN Source of Information: Patient Exam Limitations: No Limitations (CHUCK FELIX APRN) History of Present Illness Date Seen by Provider: Nov 15, 2021 Time Seen by Provider: 10:55 Initial Comments To ER by [facility] from home in [place] with reports of left low back pain that radiates around the left abdomen for 3 days. She had COVID 2.5 weeks ago. She had both COVID vaccines and a booster. She reports no fevers until last night at 1 AM when she had a fever of 104 degrees. She reports an allergy to many pain medications and is on Suboxone at home for pain management. She denies any trauma to the back. Pain does not radiate down her legs. No loss of bowel or bladder control or saddle numbness Timing/Duration: 2-3 Days Severity: Moderate Associated Systoms: Fever/Chills (CHUCK FELIX APRN) Allergies and Home Medications Allergies Coded Allergies: Iodinated Contrast Media (Verified Allergy, Unknown, 09/27/19) cephalexin (Verified Allergy, Unknown, 09/27/19) fentanyl (Verified Allergy, Unknown, 09/27/19) ketamine (Verified Allergy, Unknown, 09/27/19) ketorolac (Verified Allergy, Unknown, 09/27/19) lamotrigine (Verified Allergy, Unknown, 09/27/19) levofloxacin (Verified Allergy, Unknown, 09/27/19) propoxyphene (Verified Allergy, Unknown, 09/27/19) sulfamethoxazole (Verified Allergy, Unknown, 09/27/19) trimethoprim (Verified Allergy, Unknown, 09/27/19) hydromorphone (Verified Adverse Reaction, Unknown, Nausea, 01/09/21) Per patient. Patient Home Medication List Home Medication List Reviewed: Yes (CHUCK FELIX APRN) Amoxicillin (Amoxicillin) 500 Mg Capsule, 500 MG PO TID, (Reported) Entered as Reported by: LISSETH PADILLA on 01/10/21 1405 Atorvastatin Calcium (Atorvastatin Calcium) 20 Mg Tablet, 20 MG PO HS, (Reported) Entered as Reported by: LISSETH PADILLA on 01/10/21 1405 Cetirizine HCl (Zyrtec) 10 Mg Capsule, 10 MG PO HS, (Reported) Entered as Reported by: SHAHBAZ RIVERA on 11/18/19 141 Clonazepam (Clonazepam) 0.5 Mg Tablet, 0.5 MG PO BID, (Reported) Entered as Reported by: SHAHBAZ RIVERA on 11/18/19 141 Doxycycline Hyclate (Doxycycline Hyclate) 100 Mg Capsule, 100 MG PO BID, (Reported) Entered as Reported by: LISSETH PADILLA on 01/10/21 140 Fluconazole (Fluconazole) 100 Mg Tablet, 100 MG PO DAILY, (Reported) Entered as Reported by: LISSETH PADILLA on 01/10/21 140 Fremanezumab-Vfrm (Ajovy) 225 Mg/1.5 Ml Syringe, 225 MG INJ MONTHLY, (Reported) Entered as Reported by: LISSETH PADILLA on 01/10/211404 Furosemide (Furosemide) 40 Mg Tablet, 40-80 MG PO DAILY PRN for FLUID RETENTION, (Reported) Entered as Reported by: LISSETH PADILLA on 01/10/21 140 Ibuprofen (Ibuprofen) 800 Mg Tablet, 800 MG PO TID PRN for PAIN-MILD (1-4), (Reported) Entered as Reported by: LISSETH PADILLA on 01/10/211404 Isosorbide Mononitrate (Isosorbide Mononitrate ER) 30 Mg Tab.er.24h, 30 MG PO DAILY, (Reported) Entered as Reported by: LISSETH PADILLA on 01/10/211404 Levetiracetam (Levetiracetam) 500 Mg Tablet, 500 MG PO BID, (Reported) Entered as Reported by: LISSETH PADILLA on 01/10/211404 Levothyroxine Sodium (Levothyroxine Sodium) 200 Mcg Tablet, 200 MCG PO DAILY, (Reported) Entered as Reported by: SHAHBAZ RIVERA on 11/18/19 141 Lidocaine HCl (Lidocaine HCl Viscous) 15 Ml Solution, ML PO PRN PRN for SORE MOUTH, (Reported) Entered as Reported by: LISSETH PADILLA on 01/10/211404 Meclizine HCl (Meclizine HCl) 25 Mg Tablet, 25 MG PO TID, (Reported) Entered as Reported by: SHAHBAZ RIVERA on 11/18/19 141 Methocarbamol (Methocarbamol) 750 Mg Tablet, 1,500 MG PO TID, (Reported) Entered as Reported by: LISSETH PADILLA on 01/10/21 1405 Methotrexate Sodium (Methotrexate) 25 Mg/1 Ml Vial, 0.6 MG INJ WED Prescribed by: CAYETANO MCGRAW on 01/11/21 1201 Naloxegol Oxalate (Movantik) 12.5 Mg Tablet, 12.5 MG PO DAILY, (Reported) Entered as Reported by: LISSETH PADILLA on 01/10/21 1405 Nystatin (Nystatin) 100,000 Unit/1 Ml Oral.susp, 100,000 UNIT PO QID Prescribed by: CAYETANO MCGRAW on 01/11/21 1201 Nystatin (Nystatin) 100,000 Unit/1 Ml Oral.susp, 5 ML PO Q6H Prescribed by: CHUCK FELIX on 11/15/21 1151 Omeprazole (Omeprazole) 40 Mg Capsule.dr, 40 MG PO DAILY, (Reported) Entered as Reported by: LISSETH PADILLA on 01/10/21 1405 Ondansetron HCl (Ondansetron HCl) 4 Mg Tablet, 4 MG PO TID PRN for NAUSEA/VOMITING-1ST LINE, (Reported) Entered as Reported by: SHAHBAZ RIVERA on 11/18/19 1410 Oseltamivir Phosphate (Tamiflu) 75 Mg Cap, 75 MG PO BID Prescribed by: CAYETANO MCGRAW on 01/11/21 1201 Oxycodone HCl/Acetaminophen (Percocet 10-325 mg Tablet) 1 Each Tablet, 1 TAB PO Q8H PRN for PAIN-MODERATE Prescribed by: CAYETANO MCGRAW on 01/11/21 1201 Peg/Electrolytes (Golytely Solution) 4,000 Ml Soln, 4,000 ML PO UD Prescribed by: CHUCK FELIX on 04/01/21 1557 Ramelteon (Ramelteon) 8 Mg Tablet, 8 MG PO HS, (Reported) Entered as Reported by: LISSETH PADILLA on 01/10/21 1405 Sucralfate (Sucralfate) 1 Gm Tablet, 1 GM PO QID, (Reported) Entered as Reported by: LISSETH PADILLA on 01/10/21 1405 Discontinued Medications Amoxicillin/Potassium Clav (Augmentin 875-125 Tablet) 1 Each Tablet, 1 EACH PO BID Prescribed by: CHUCK FELIX on 11/15/21 1137 Review of Systems Review of Systems Constitutional: see HPI EENTM: see HPI Respiratory: no symptoms reported Cardiovascular: no symptoms reported Genitourinary: no symptoms reported Musculoskeletal: see HPI, back pain Skin: no symptoms reported Psychiatric/Neurological: No Symptoms Reported Hematologic/Lymphatic: No Symptoms Reported Immunological/Allergic: no symptoms reported (CHUCK FELIX APRN) Past Luaxozz-Mrjsei-Pwuazu Hx Immunizations Up To Date Tetanus Booster (TDap): More than 5yrs PED Vaccines UTD: Yes First/Initial COVID19 Vaccinat: 2020 - A Second COVID19 Vaccination [place]: 2020 - Third COVID19 Vaccination Date: 2020 - PFIZER (CHUCK FELIX APRN) Seasonal Allergies Seasonal Allergies: No (CHUCK FELIX APRN) Past Medical History Surgeries: Yes (THYMOMA REMOVALX2, INTERNAL MONITOR, LT SHOULDER, ORAL SURGERY) Appendectomy, Bladder Surgery, Hysterectomy, Orthopedic, Tubal Ligation Respiratory: Yes Asthma, COPD Cardiac: Yes (SVT;CLAIMS "5 HEART ATTACKS"NORMAL EKG'S/NORMAL CARD. 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, Tubal Ligation Genitourinary: Yes Kidney Stones Gastrointestinal: Yes (OPOID INDUCED CONSTIPATION) Irritable Bowel Musculoskeletal: Yes (LUPUS) Fibromyalgia, Rheumatoid Arthritis Endocrine: Yes (AMMON'S; SJOGREN'S; THYMUS REMOVED; OBESITY) Hypothyroidsim, Lupus HEENT: Yes (POOR DENTITION) Cancer: No Psychosocial: Yes Sleep Difficulties, Anxiety, Depression Integumentary: No Blood Disorders: No (CHUCK FELIX APRN) Family Medical History No Pertinent Family Hx NC (CHUCK FELIX APRN) Physical Exam Vital Signs Vital Signs - First Documented 11/15/21 10:46 Temp 36.9 Pulse 92 Resp 18 B/P (MAP) 169/99 (122) Pulse Ox 96 O2 Delivery Room Air (DUYEN OLIVER MD) Vital Signs Capillary Refill : (CHUCK FELIX APRN) Height, Weight, BMI Height: '" Weight: lbs. oz. kg; 43.00 BMI Method: General Appearance: No Apparent Distress, WD/WN, Obese Eyes: Bilateral Eye Normal Inspection, Bilateral Eye PERRL, Bilateral Eye Abnormal EOM HEENT: Other (Complains of throat pain there is some erythema of the throat with whitish patches on the soft palate and oropharynx consistent with oropharyngeal candidiasis) Neck: Full Range of Motion, Normal Inspection Respiratory: Normal Breath Sounds, No Accessory Muscle Use, No Respiratory Distress Cardiovascular: Regular Rate, Rhythm, Normal Peripheral Pulses Gastrointestinal: Non Tender, Soft Extremity: Normal Capillary Refill, Normal Inspection Neurologic/Psychiatric: Alert, Oriented x3 Skin: Normal Color, Warm/Dry, Other (Multiple sores to the dorsal aspect of her forearms.) (CHUCK FELIX APRN) Progress/Results/Core Measures Suspected Sepsis SIRS Temperature: Pulse: Respiratory Rate: Laboratory Tests 11/15/21 10:55: White Blood Count 13.0H Blood Pressure / Mean: Laboratory Tests 11/15/21 10:55: Creatinine 0.74, Platelet Count 299 (CHUCK FELIX APRN) Results/Orders Lab Results Laboratory Tests Test 11/15/21 10:55 11/15/21 11:32 Range/Units White Blood Count 13.0 H 4.3-11.0 10^3/uL Red Blood Count 4.67 3.80-5.11 10^6/uL Hemoglobin 13.4 11.5-16.0 g/dL Hematocrit 44 35-52 % Mean Corpuscular Volume 93 80-99 fL Mean Corpuscular Hemoglobin 29 25-34 pg Mean Corpuscular Hemoglobin Concent 31 L 32-36 g/dL Red Cell Distribution Width 18.0 H 10.0-14.5 % Platelet Count 299 130-400 10^3/uL Mean Platelet Volume 10.4 9.0-12.2 fL Immature Granulocyte % (Auto) 1 % Neutrophils (%) (Auto) 71 42-75 % Lymphocytes (%) (Auto) 18 12-44 % Monocytes (%) (Auto) 8 0-12 % Eosinophils (%) (Auto) 2 0-10 % Basophils (%) (Auto) 1 0-10 % Neutrophils # (Auto) 9.3 H 1.8-7.8 10^3/uL Lymphocytes # (Auto) 2.3 1.0-4.0 10^3/uL Monocytes # (Auto) 1.1 H 0.0-1.0 10^3/uL Eosinophils # (Auto) 0.2 0.0-0.3 10^3/uL Basophils # (Auto) 0.1 0.0-0.1 10^3/uL Immature Granulocyte # (Auto) 0.1 0.0-0.1 10^3/uL Urine Color YELLOW Urine Clarity CLEAR Urine pH 7.0 5-9 Urine Specific [place] 1.020 1.016-1.022 Urine Protein NEGATIVE NEGATIVE Urine Glucose (UA) NEGATIVE NEGATIVE Urine Ketones NEGATIVE NEGATIVE Urine Nitrite NEGATIVE NEGATIVE Urine Bilirubin NEGATIVE NEGATIVE Urine Urobilinogen 0.2 < = 1.0 MG/DL Urine Leukocyte Esterase 1+ H NEGATIVE Urine RBC (Auto) TRACE-I H NEGATIVE Urine RBC RARE /HPF Urine WBC 0-2 /HPF Urine Crystals NONE /LPF Urine Bacteria TRACE /HPF Urine Casts NONE /LPF Urine Mucus NEGATIVE /LPF Urine Culture Indicated NO Sodium Level 137 135-145 MMOL/L Potassium Level 4.2 3.6-5.0 MMOL/L Chloride Level 103 98-107 MMOL/L Carbon Dioxide Level 21 21-32 MMOL/L Anion Gap 13 5-14 MMOL/L Blood Urea Nitrogen 11 7-18 MG/DL Creatinine 0.74 0.60-1.30 MG/DL Estimat Glomerular Filtration Rate 100 BUN/Creatinine Ratio 15 Glucose Level 105 70-105 MG/DL Calcium Level 9.3 8.5-10.1 MG/DL Urine Opiates Screen NEGATIVE NEGATIVE Urine Oxycodone Screen NEGATIVE NEGATIVE Urine Methadone Screen NEGATIVE NEGATIVE Urine Propoxyphene Screen NEGATIVE NEGATIVE Urine Barbiturates Screen NEGATIVE NEGATIVE Ur Tricyclic Antidepressants Screen NEGATIVE NEGATIVE Urine Phencyclidine Screen NEGATIVE NEGATIVE Urine Amphetamines Screen NEGATIVE NEGATIVE Urine Methamphetamines Screen NEGATIVE NEGATIVE Urine Benzodiazepines Screen NEGATIVE NEGATIVE Urine Cocaine Screen NEGATIVE NEGATIVE Urine Cannabinoids Screen NEGATIVE NEGATIVE Procalcitonin 0.08 <0.10 NG/ML (DUYEN OLIVER MD) Vital Signs/I&O 11/15/21 11/15/21 10:46 12:07 Temp 36.9 Pulse 92 79 Resp 18 18 B/P (MAP) 169/99 (122) 140/95 Pulse Ox 96 98 O2 Delivery Room Air Room Air (DUYEN OLIVER MD) Vital Signs/I&O Capillary Refill : (CHUCK FELIX APRN) Departure Communication (Admissions) 1154-discussed with her that there is a stone in the kidney but nothing within the ureter and these do not cause pain in the kidney. She informs me that they do cause pain in her. She states that she has seen urology and they refused to do anything about it. I recommended Rocephin and ibuprofen here for her pain and possibility of infection in or around the kidney though it is unlikely. She declines the Rocephin because it is distantly related to cephalosporin. I discussed with her that these were different generations of cephalosporins and the risk is low. She still refuses. She refuses the ibuprofen because she took a 100 mg tablet earlier this morning. NAME: LAYNE SPEARS [facility] REC#: [id number] PT STATUS: REG ER : 1975 PHYSICIAN: CHUCK FELIX APRN ADMIT DATE: 11/15/21/ER Draft Date of Exam:11/15/21 CHEST 1 VIEW, AP/PA ONLY EXAMINATION: Portable erect AP chest at 11:14 a.m. INDICATION: COVID positive, fever. FINDINGS: The heart size is within normal limits, but the heart does seem somewhat less prominent when compared to 01/09/2021. The sternotomy wires and surgical clips and the loop recorder device seen on the prior study are again evident and no different. The lungs remain clear. There is still no sign of failure, pneumonia, or pleural effusion. The mediastinum is not widened. The osseous structures are intact. IMPRESSION: Stable chest. There has been no adverse change since the prior exam. Dictated on workstation # [id number] Dict: 11/15/21 1125 Trans: 11/15/21 1130 [id number] Interpreted by: MARIELENA GONZALEZ MD Electronically signed by: NAME: LAYNE SPEARS [facility] REC#: [id number] PT STATUS: REG ER : 1975 PHYSICIAN: CHUCK FELIX APRN ADMIT DATE: 11/15/21/ER Draft Date of Exam:11/15/21 CT ABD/PELVIS WO(KIDNEY STONE) EXAMINATION: CT abdomen and pelvis without contrast. TECHNIQUE: Multiple contiguous axial images were obtained through the abdomen and pelvis without the use of intravenous contrast. All CT scans use one or more of the following dose optimizing techniques: automated exposure control, MA and/or KvP adjustment based on patient size and exam type or iterative reconstruction. HISTORY: Left flank pain. COMPARISON: 10/12/2019. FINDINGS: Limited views of the lower thorax are unremarkable. The liver is normal without focal lesion. There is no biliary ductal dilation. Gallbladder is normal. Pancreas is normal. Spleen is normal. Adrenal glands are normal. There is a 2 mm nonobstructing stone in the upper pole of the left kidney. There is asymmetric perinephric stranding about the left kidney. No ureteral stones. No ureteral dilation. There is no hydronephrosis. Urinary bladder is normal. Bowel is normal in caliber without obstruction or inflammation. No free fluid or air. No abdominal or pelvic lymphadenopathy. Aorta is normal in caliber without aneurysm. There are no suspicious osseous lesions. IMPRESSION: 1. Nonobstructing 2 mm stone in the upper pole of the left kidney. There is asymmetric left-sided perinephric stranding but no ureteral stones or hydronephrosis. This may be related to recently passed stone or pyelonephritis. Dictated on workstation # [id number] Dict: 11/15/21 1122 Trans: 11/15/21 1131 [id number] Interpreted by: ROCÍO MIGUEL MD Electronically signed by: (CHUCK FELIX APRN) Impression Primary Impression: Acute left flank pain Additional Impression: Oropharyngeal candidiasis Disposition: 01 HOME, SELF-CARE Condition: Stable Departure-Patient Inst. Decision time for Depature: 11:33 (CHUCK FELIX APRN) Referrals: [facility] [place] (PCP/Family) Primary Care Physician Patient Instructions: Flank Pain ED Add. Discharge Instructions: 1. Follow-up with your primary care provider. Return to ER for any concerns. Continue current pain medication regimen. All discharge instructions reviewed with patient and/or family. Voiced understanding. Scripts Nystatin (Nystatin) 100,000 Unit/1 Ml Oral.susp 5 ML PO Q6H, #140 ML Prov: CHUCK FELIX APRN 11/15/21 ATTENDING PHYSICIAN NOTE: I was physically present as attending physician in the emergency department during the care of this patient, but I was not directly involved in the decision making or delivery of care for this patient. (DUYEN OLIVER MD) CHUCK FELIX APRN Nov 15, 2021 10:57 DUYEN OLIVER MD Nov 15, 2021 19:22
[2021-11-15 10:59] LABS: BASOPHILS # (AUTO) 0.1 10^3/uL (0.0-0.1); BASOPHILS % (AUTO) 1 % (0-10); EOSINOPHILS # (AUTO) 0.2 10^3/uL (0.0-0.3); EOSINOPHILS % (AUTO) 2 % (0-10); HEMATOCRIT 44 % (35-52); HEMOGLOBIN 13.4 g/dL (11.5-16.0); LYMPHOCYTES # (AUTO) 2.3 10^3/uL (1.0-4.0); LYMPHOCYTES % (AUTO) 18 % (12-44); MEAN CORPUSCULAR HEMOGLOBIN 29 pg (25-34); MEAN CORPUSCULAR HGB CONC 31 g/dL (32-36); MEAN CORPUSCULAR VOLUME 93 fL (80-99); MEAN PLATELET VOLUME 10.4 fL (9.0-12.2); MONOCYTES # (AUTO) 1.1 10^3/uL (0.0-1.0); MONOCYTES % (AUTO) 8 % (0-12); NEUTROPHILS # (AUTO) 9.3 10^3/uL (1.8-7.8); NEUTROPHILS % (AUTO) 71 % (42-75); PLATELET COUNT 299 10^3/uL (130-400)
[2021-11-15 11:00] LABS: BILIRUBIN,URINE NEGATIVE (NEGATIVE); CLARITY,URINE CLEAR; COLOR,URINE YELLOW; GLUCOSE, URINE (UA) NEGATIVE (NEGATIVE); KETONES,URINE NEGATIVE (NEGATIVE); LEUKOCYTE ESTERASE ,URINE 1+ (NEGATIVE); NITRITE,URINE NEGATIVE (NEGATIVE); PROTEIN,URINE NEGATIVE (NEGATIVE)
[2021-11-15 11:07] LABS: BACTERIA,URINE TRACE /HPF; RBC,URINE RARE /HPF; WBC,URINE 0-2 /HPF
[2021-11-15 11:13] LABS: AMPHETAMINE SCREEN, URINE NEGATIVE (NEGATIVE); BARBITURATE SCREEN URINE NEGATIVE (NEGATIVE); BENZODIAZEPINES SCREEN URINE NEGATIVE (NEGATIVE); CANNABINOID SCREEN, URINE NEGATIVE (NEGATIVE); COCAINE SCREEN URINE NEGATIVE (NEGATIVE); METHADONE STAT NEGATIVE (NEGATIVE); METHAMPHETAMINE SCREEN URINE S NEGATIVE (NEGATIVE); OPIATE SCREEN URINE NEGATIVE (NEGATIVE); OXYCODONE STAT NEGATIVE (NEGATIVE); PROPOXYPHENE STAT NEGATIVE (NEGATIVE); TRICYCLIC ANTIDEPRESSANTS SCRE NEGATIVE (NEGATIVE)
[2021-11-15 11:18] LABS: CALCIUM 9.3 MG/DL (8.5-10.1); CREATININE SERUM 0.74 MG/DL (0.60-1.30); POTASSIUM 4.2 MMOL/L (3.6-5.0)
--- NOTE | 2021-11-15 11:30 | Diagnostic Imaging Report ---
EXAMINATION: Portable erect AP chest at 11:14 a.m. INDICATION: COVID positive, fever. FINDINGS: The heart size is within normal limits, but the heart does seem somewhat less prominent when compared to 01/09/2021. The sternotomy wires and surgical clips and the loop recorder device seen on the prior study are again evident and no different. The lungs remain clear. There is still no sign of failure, pneumonia, or pleural effusion. The mediastinum is not widened. The osseous structures are intact. IMPRESSION: Stable chest. There has been no adverse change since the prior exam. Dictated by: Dictated on workstation # [id number]
--- NOTE | 2021-11-15 11:32 | Diagnostic Imaging Report ---
EXAMINATION: CT abdomen and pelvis without contrast. TECHNIQUE: Multiple contiguous axial images were obtained through the abdomen and pelvis without the use of intravenous contrast. All CT scans use one or more of the following dose optimizing techniques: automated exposure control, MA and/or KvP adjustment based on patient size and exam type or iterative reconstruction. HISTORY: Left flank pain. COMPARISON: 10/12/2019. FINDINGS: Limited views of the lower thorax are unremarkable. The liver is normal without focal lesion. There is no biliary ductal dilation. Gallbladder is normal. Pancreas is normal. Spleen is normal. Adrenal glands are normal. There is a 2 mm nonobstructing stone in the upper pole of the left kidney. There is asymmetric perinephric stranding about the left kidney. No ureteral stones. No ureteral dilation. There is no hydronephrosis. Urinary bladder is normal. Bowel is normal in caliber without obstruction or inflammation. No free fluid or air. No abdominal or pelvic lymphadenopathy. Aorta is normal in caliber without aneurysm. There are no suspicious osseous lesions. IMPRESSION: 1. Nonobstructing 2 mm stone in the upper pole of the left kidney. There is asymmetric left-sided perinephric stranding but no ureteral stones or hydronephrosis. This may be related to recently passed stone or pyelonephritis. Dictated by: Dictated on workstation # [id number]
[2021-11-15] MEDS ORDERED: AMOX-358 PO (11:37)
[2021-11-15] MEDS ORDERED: IBUPROFEN 800 MG (MOTRIN) TAB PO ONE (11:45)
[2021-11-15] MEDS ORDERED: cefTRIAXone 1 GM PRE-MIX 50 ML IV ONE (11:45)
[2021-11-15] MEDS ORDERED: NYST1000 PO (11:51)
[2021-11-15 12:07] VITALS: BP 140/95
== END 2021-11-15 12:06 | disposition home or self-care (01) ==
LOC: EDUNIT# 10:44 → ER 10:44
DX: R10.9 Unspecified abdominal pain (principal); B37.0 Candidal stomatitis; E66.9 Obesity, unspecified; Z68.41 Body mass index [BMI] 40.0-44.9, adult
CPT/HCPCS: 36415; 71045; 74176; 80048; 80306; 81000; 84145; 85025; 87040

== ENCOUNTER 2021-12-09 20:18 | Emergency (ER) | payer MEDICAID ==
[~2021-12-09] VITALS: Ht 165 cm; Wt 124.0 kg
[~2021-12-09 20:18] MED LIST changes: +AMOX-358 PO
--- NOTE | 2021-12-09 20:32 | ED Neck-Back Pain/Injury ---
General Stated Complaint: FEVER/NECK PAIN Source of Information: Patient Exam Limitations: No Limitations History of Present Illness Date Seen by Provider: Dec 09, 2021 Time Seen by Provider: 20:28 Initial Comments To ER by [facility] from [facility] in [facility]. She presented there with fever up to 104. She had COVID about a month ago. She tested positive for influenza and strep there. She reported severe neck pain and nuchal rigidity on exam and was referred to our emergency department here for further evaluation including diagnostic lumbar puncture and CT imaging. She had a normal white count normal lactic acid. She is on methotrexate for lupus. Location: C-Spine Timing/Duration: Other Severity: Moderate Method of Injury: Unknown Associated Symptoms: fever, other Allergies and Home Medications Allergies Coded Allergies: Iodinated Contrast Media (Verified Allergy, Unknown, 09/27/19) cephalexin (Verified Allergy, Unknown, 09/27/19) fentanyl (Verified Allergy, Unknown, 09/27/19) ketamine (Verified Allergy, Unknown, 09/27/19) ketorolac (Verified Allergy, Unknown, 09/27/19) lamotrigine (Verified Allergy, Unknown, 09/27/19) levofloxacin (Verified Allergy, Unknown, 09/27/19) propoxyphene (Verified Allergy, Unknown, 09/27/19) sulfamethoxazole (Verified Allergy, Unknown, 09/27/19) trimethoprim (Verified Allergy, Unknown, 09/27/19) hydromorphone (Verified Adverse Reaction, Unknown, Nausea, 01/09/21) Per patient. Patient Home Medication List Home Medication List Reviewed: Yes Amoxicillin (Amoxicillin) 500 Mg Capsule, 500 MG PO TID, (Reported) Entered as Reported by: LISSETH PADILLA on 01/10/21 1405 Atorvastatin Calcium (Atorvastatin Calcium) 20 Mg Tablet, 20 MG PO HS, (Repor jacob) Entered as Reported by: LISSETH PADILLA on 01/10/21 1405 Cetirizine HCl (Zyrtec) 10 Mg Capsule, 10 MG PO HS, (Reported) Entered as Reported by: SHAHBAZ RIVERA on 11/18/19 1410 Clonazepam (Clonazepam) 0.5 Mg Tablet, 0.5 MG PO BID, (Reported) Entered as Reported by: SHAHBAZ RIVERA on 11/18/19 1410 Doxycycline Hyclate (Doxycycline Hyclate) 100 Mg Capsule, 100 MG PO BID, (Reported) Entered as Reported by: LISSETH PADILLA on 01/10/21 140 Fluconazole (Fluconazole) 100 Mg Tablet, 100 MG PO DAILY, (Reported) Entered as Reported by: LISSETH PADILLA on 01/10/21 140 Fremanezumab-Vfrm (Ajovy) 225 Mg/1.5 Ml Syringe, 225 MG INJ MONTHLY, (Reported) Entered as Reported by: LISSETH PADILLA on 01/10/21 140 Furosemide (Furosemide) 40 Mg Tablet, 40-80 MG PO DAILY PRN for FLUID RETENTION, (Reported) Entered as Reported by: LISSETH PADILLA on 01/10/21 140 Ibuprofen (Ibuprofen) 800 Mg Tablet, 800 MG PO TID PRN for PAIN-MILD (1-4), (Reported) Entered as Reported by: LISSETH PADILLA on 01/10/211404 Isosorbide Mononitrate (Isosorbide Mononitrate ER) 30 Mg Tab.er.24h, 30 MG PO DAILY, (Reported) Entered as Reported by: LISSETH PADILLA on 01/10/211404 Levetiracetam (Levetiracetam) 500 Mg Tablet, 500 MG PO BID, (Reported) Entered as Reported by: LISSETH PADILLA on 01/10/211404 Levothyroxine Sodium (Levothyroxine Sodium) 200 Mcg Tablet, 200 MCG PO DAILY, (Reported) Entered as Reported by: SHAHBAZ RIVERA on 11/18/19 141 Lidocaine HCl (Lidocaine HCl Viscous) 15 Ml Solution, ML PO PRN PRN for SORE MOUTH, (Reported) Entered as Reported by: LISSETH PADILLA on 01/10/21 140 Meclizine HCl (Meclizine HCl) 25 Mg Tablet, 25 MG PO TID, (Reported) Entered as Reported by: SHAHBAZ RIVERA on 11/18/19 141 Methocarbamol (Methocarbamol) 750 Mg Tablet, 1,500 MG PO TID, (Reported) Entered as Reported by: LISSETH PADILLA on 01/10/21 140 Methotrexate Sodium (Methotrexate) 25 Mg/1 Ml Vial, 0.6 MG INJ WED Prescribed by: CAYETANO MCGRAW on 01/11/21 1201 Naloxegol Oxalate (Movantik) 12.5 Mg Tablet, 12.5 MG PO DAILY, (Reported) Entered as Reported by: LISSETH PADILLA on 01/10/21 1405 Nystatin (Nystatin) 100,000 Unit/1 Ml Oral.susp, 100,000 UNIT PO QID Prescribed by: CAYETANO MCGRAW on 01/11/21 1201 Nystatin (Nystatin) 100,000 Unit/1 Ml Oral.susp, 5 ML PO Q6H Prescribed by: CHUCK FELIX on 11/15/21 1151 Omeprazole (Omeprazole) 40 Mg Capsule.dr, 40 MG PO DAILY, (Reported) Entered as Reported by: LISSETH PADILLA on 01/10/21 1405 Ondansetron HCl (Ondansetron HCl) 4 Mg Tablet, 4 MG PO TID PRN for NAUSEA/VOMITING-1ST LINE, (Reported) Entered as Reported by: SHAHBAZ RIVERA on 11/18/19 1410 Oseltamivir Phosphate (Tamiflu) 75 Mg Cap, 75 MG PO BID Prescribed by: CAYETANO MCGRAW on 01/11/21 1201 Oxycodone HCl/Acetaminophen (Percocet 10-325 mg Tablet) 1 Each Tablet, 1 TAB PO Q8H PRN for PAIN-MODERATE Prescribed by: CAYETANO MCGRAW on 01/11/21 1201 Peg/Electrolytes (Golytely Solution) 4,000 Ml Soln, 4,000 ML PO UD Prescribed by: CHUCK FELIX on 04/01/21 1557 Ramelteon (Ramelteon) 8 Mg Tablet, 8 MG PO HS, (Reported) Entered as Reported by: LISSETH PADILLA on 01/10/21 1405 Sucralfate (Sucralfate) 1 Gm Tablet, 1 GM PO QID, (Reported) Entered as Reported by: LISSETH PADILLA on 01/10/21 1405 Review of Systems Constitutional: see HPI EENTM: see HPI Respiratory: no symptoms reported Cardiovascular: no symptoms reported Genitourinary: no symptoms reported Musculoskeletal: no symptoms reported Skin: no symptoms reported Psychiatric/Neurological: No Symptoms Reported Past Rxhauls-Ikvahy-Jehkpn Hx Immunizations Up To Date Tetanus Booster (TDap): More than 5yrs PED Vaccines UTD: Yes First/Initial COVID19 Vaccinat: YES DATE ? Second COVID19 Vaccination [place]: YES DATE ? Third COVID19 Vaccination Date: 2020 - [facility] Seasonal Allergies Seasonal Allergies: No Past Medical History Surgeries: Yes (THYMOMA REMOVALX2, INTERNAL MONITOR, LT SHOULDER, ORAL SURGERY) Appendectomy, Bladder Surgery, Hysterectomy, Orthopedic, Tubal Ligation Respiratory: Yes Asthma, COPD Cardiac: Yes (SVT;CLAIMS "5 HEART ATTACKS"NORMAL EKG'S/NORMAL CARD. 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, Tubal Ligation Genitourinary: Yes Kidney Stones Gastrointestinal: Yes (OPOID INDUCED CONSTIPATION) Irritable Bowel Musculoskeletal: Yes (LUPUS) Fibromyalgia, Rheumatoid Arthritis Endocrine: Yes (AMMON'S; SJOGREN'S; THYMUS REMOVED; OBESITY) Hypothyroidsim, Lupus HEENT: Yes (POOR DENTITION) Cancer: No Psychosocial: Yes Sleep Difficulties, Anxiety, Depression Integumentary: No Blood Disorders: No Family Medical History No Pertinent Family Hx NC Physical Exam Vital Signs Vital Signs - First Documented 12/09/21 20:34 Temp 36.7 Pulse 109 Resp 24 B/P (MAP) 124/84 (97) Pulse Ox 96 O2 Delivery Room Air Capillary Refill : Height, Weight, BMI Height: '" Weight: lbs. oz. kg; 45.00 BMI Method: General Appearance: No Apparent Distress, WD/WN, Chronically ill, Obese, Other (Unkempt. Before even getting off of the EMS cot she asks how long until she can be given food. Discussed with her that was not the top of our concern right now. She is upset with this stating "I have not eaten since Friday!". She then developed some stridorous upper airway sounds and was flapping her hands, stated that her airway was closing. She was asked to stop doing this and after about 15 to 30 seconds she stopped.) HEENT: PERRL/EOMI, TMs Normal Neck: Full Range of Motion, Normal Inspection Respiratory: No Accessory Muscle Use, No Respiratory Distress Gastrointestinal: Normal Bowel Sounds, Non Tender, Soft Extremity: Normal Capillary Refill, Normal Inspection Neurologic/Psychiatric: Alert, Oriented x3 Skin: Normal Color, Warm/Dry Progress/Results/Core Measures Results/Orders Lab Results Laboratory Tests Test 12/09/21 20:45 3/20/22 21:46 Range/Units Urine Test NEGATIVE NEGATIVE Urine Opiates Screen NEGATIVE NEGATIVE Urine Oxycodone Screen NEGATIVE NEGATIVE Urine Methadone Screen NEGATIVE NEGATIVE Urine Propoxyphene Screen NEGATIVE NEGATIVE Urine Barbiturates Screen NEGATIVE NEGATIVE Ur Tricyclic Antidepressants Screen NEGATIVE NEGATIVE Urine Phencyclidine Screen NEGATIVE NEGATIVE Urine Amphetamines Screen NEGATIVE NEGATIVE Urine Methamphetamines Screen NEGATIVE NEGATIVE Urine Benzodiazepines Screen NEGATIVE NEGATIVE Urine Cocaine Screen NEGATIVE NEGATIVE Urine Cannabinoids Screen NEGATIVE NEGATIVE CSF Tube Number 4 CSF Appearance CLEAR CSF Color COLORLESS CSF WBC 1 0-5 CELLS CSF RBC 0 0-0 CELLS CSF Lymphocytes % CSF Mononuclear WBCs % CSF Polynuclear WBCs % CSF Glucose 63 50-80 MG/DL CSF Total Protein 24 15-40 MG/DL My Orders Orders - CHUCK FELIX APRN Ct Head Wo (12/09/21 20:24) Drug Screen Stat (Urine) (12/09/21 20:24) Hcg,Qualitative Urine (12/09/21 20:24) Csf Cell Count (12/09/21 20:24) Csf Glucose (12/09/21 20:24) Csf Total Protein (12/09/21 20:24) Csf Culture (12/09/21 20:24) Ct Neck (Soft Tissue) Wo (12/09/21 20:34) Vital Signs/I&O 12/09/21 12/09/21 20:34 20:39 Temp 36.7 36.7 Pulse 109 109 Resp 24 24 B/P (MAP) 124/84 (97) 124/84 (97) Pulse Ox 96 96 O2 Delivery Room Air Room Air Departure Communication (Admissions) Josesito READING from anesthesia department did diagnostic lumbar puncture found opening pressure to be elevated at 32 though the CSF was clear. Based on body habitus the elevated opening pressure likely due to pseudotumor cerebri. No indication of infection on cell count or differential. Impression Primary Impression: Influenza B Additional Impression: Strep pharyngitis Disposition: 01 HOME, SELF-CARE Condition: Stable Departure-Patient Inst. Decision time for Depature: 22:21 Referrals: [facility] (PCP/Family) Primary Care Physician Patient Instructions: Strep Throat (DC), Flu, Adult ED Add. Discharge Instructions: 1. Take Tylenol and ibuprofen for pain and fever control. Follow-up with your doctor later this week. Scripts Azithromycin (Azithromycin) 250 Mg Tablet 250 MG PO UD, #6 TAB TAKE 2 TABLETS ON DAY ONE THEN TAKE 1 TABLET DAILY FOR FOUR MORE DAYS Prov: CHUCK FELIX APRN 12/09/21 Baloxavir Marboxil (Xofluza) 80 Mg Tablet 80 MG PO ONCE, #1 TAB Prov: CHUCK FELIX APRN 12/09/21 CHUCK FELIX APRN Dec 09, 2021 20:31
[2021-12-09 20:39] VITALS: BP 124/84
--- NOTE | 2021-12-09 20:54 | Diagnostic Imaging Report ---
EXAMINATION: CT head without contrast. TECHNIQUE: Multiple contiguous axial images were obtained through the brain without the use of intravenous contrast. All CT scans use one or more of the following dose optimizing techniques: automated exposure control, MA and/or KvP adjustment based on patient size and exam type or iterative reconstruction. HISTORY: Swelling under the chin. COMPARISON: None available. FINDINGS: The miller-white matter differentiation is normal. No mass effect or midline shift. The ventricles are normal in size and configuration. Basilar cisterns are patent. There are no intra-axial or extra-axial fluid collections. There is no intracranial hemorrhage. The orbits are normal. Paranasal sinuses are normal. Mastoid air cells are clear. No soft tissue abnormality is seen. No osseus lesions or fractures are seen. IMPRESSION: No acute intracranial abnormality. Dictated by: Dictated on workstation # [id number]
--- NOTE | 2021-12-09 20:56 | Diagnostic Imaging Report ---
EXAMINATION: CT neck without intravenous contrast. TECHNIQUE: Multiple contiguous axial images were obtained through the neck without administration of intravenous contrast. All CT scans use one or more of the following dose optimizing techniques: automated exposure control, MA and/or KvP adjustment based on patient size and exam type or iterative reconstruction. HISTORY: Pain under jaw. COMPARISON: None available. FINDINGS: Scattered subcentimeter lymph nodes are seen in the neck. None are pathologically enlarged. The muscles of the neck are normal. Vessels of the neck demonstrate normal course. Fascial planes are preserved and the deep spaces of the neck are normal. The visualized airway is widely patent. The base of the skull and the temporal bones are normal. Limited views of the brain including the cerebellum and brainstem are normal. The limited view of the [place] is unremarkable. The visualized portions of the orbits are normal. The spinal canal is normal in caliber. Intervertebral disk heights are normal. Neural foramina are normal. Limited examination of the superior thorax shows no pulmonary infiltrate, suspicious nodules, or pleural effusions. IMPRESSION: Normal CT examination of the neck. Dictated by: Dictated on workstation # [id number]
[2021-12-09 21:02] LABS: HCG,QUALITATIVE URINE NEGATIVE (NEGATIVE)
[2021-12-09 21:07] LABS: AMPHETAMINE SCREEN, URINE NEGATIVE (NEGATIVE); BARBITURATE SCREEN URINE NEGATIVE (NEGATIVE); BENZODIAZEPINES SCREEN URINE NEGATIVE (NEGATIVE); CANNABINOID SCREEN, URINE NEGATIVE (NEGATIVE); COCAINE SCREEN URINE NEGATIVE (NEGATIVE); METHADONE STAT NEGATIVE (NEGATIVE); METHAMPHETAMINE SCREEN URINE S NEGATIVE (NEGATIVE); OPIATE SCREEN URINE NEGATIVE (NEGATIVE); OXYCODONE STAT NEGATIVE (NEGATIVE); PROPOXYPHENE STAT NEGATIVE (NEGATIVE); TRICYCLIC ANTIDEPRESSANTS SCRE NEGATIVE (NEGATIVE)
--- NOTE | 2021-12-09 22:06 | Anesthesia-Procedure Note ---
Procedures/Interventions Procedure Start/Stop/Diagnosis Date of Procedure: Dec 09, 2021 Start Time: 21:35 Stop Time: 21:50 Lumbar Puncture Discussed Risk,Benefits: Yes Patient Consents: Yes Position: Lying, Left Sterile Technique: Yes Opening Pressure: 32 Spinal Needle Used: Other (22g pencil point 3 1/2 inch) Procedure Notes Patient in left side down position. Hips and back palpated. Beta prep x 3. local at L3/4. Redirect x 1 after pain in Right hip. + CSF -parasthesia. Procedure as above. 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 ADRIENNE GARCIA CRNA Dec 09, 2021 22:06
[2021-12-09 22:09] LABS: APPEARANCE,CSF CLEAR; COLOR,CSF COLORLESS; CSF GLUCOSE 63 MG/DL (50-80)
[2021-12-09 22:10] LABS: WHITE BLOOD CELL,CSF 1 CELLS (0-5)
[2021-12-09 22:11] LABS: CSF TUBE NUMBER 4; RED BLOOD CELL,CSF 0 CELLS (0-0)
[2021-12-09 22:15] LABS: CSF TOTAL PROTEIN 24 MG/DL (15-40)
[2021-12-09] MEDS ORDERED: AZIT250T12 PO (22:22)
[2021-12-09] MEDS ORDERED: BALO80TA PO (22:22)
== END 2021-12-09 22:52 | disposition home or self-care (01) ==
LOC: EDUNIT# 20:18 → ER 20:19
DX: J10.1 Influenza due to other identified influenza virus with other respiratory manifestations (principal); J02.0 Streptococcal pharyngitis; E66.9 Obesity, unspecified; M32.9 Systemic lupus erythematosus, unspecified; Z68.42 Body mass index [BMI] 45.0-49.9, adult; Z32.02 Encounter for pregnancy test, result negative; Z86.16 Personal history of COVID-19
CPT/HCPCS: 70450; 70490; 80306; 82945; 84157; 84703; 87070; 87205; 89051

== ENCOUNTER 2022-10-15 07:03 | Day surgery (SDC) | payer MEDICAID ==
[~2022-10-15] VITALS: Ht 165.1 cm; Wt 107.2 kg
[~2022-10-15 07:03] MED LIST changes: +AZIT250T12 PO; +BALO80TA PO
[2022-10-15] MEDS ORDERED: HEParin (CATH LAB) 0 ML IV ONE (07:07)
[2022-10-15] MEDS ORDERED: NS IV 1000 ML 0 ML ONE (07:07)
[2022-10-15] MEDS ORDERED: LIDOCAINE 1% INJ 20 ML VIAL ONE (07:07)
[2022-10-15] MEDS ORDERED: NS IV 1000 ML 1,000 ML IV SCH (07:15)
== END 2022-10-15 08:05 | disposition home or self-care (01) ==
LOC: CATH 07:03
PROVIDERS: ATTEND Internal Medicine Cardiovascular Disease
DX: R00.0 Tachycardia, unspecified (principal); E66.01 Morbid (severe) obesity due to excess calories; I10 Essential (primary) hypertension; R07.9 Chest pain, unspecified; I65.23 Occlusion and stenosis of bilateral carotid arteries; R60.9 Edema, unspecified; Z95.9 Presence of cardiac and vascular implant and graft, unspecified; Z68.39 Body mass index [BMI] 39.0-39.9, adult; Z53.29 Procedure and treatment not carried out because of patient's decision for other reasons